=== PATIENT | male | born 1955 | race Caucasian/White ===

== ENCOUNTER 2017-01-11 20:34 | Inpatient (IN) | payer BC ==
[2017-01-11 20:49] LABS: ADD MANUAL DIFF? NO
[2017-01-11 20:59] LABS: BASO # 0.05 K/mm3 (0.0-2.0); BASO % 0.6 % (0.0-3.0); EOS # 0.1 (0.0-0.7); EOS % 1.6 % (1.5-5.0); GRAN # 5.65 (1.4-6.5); GRAN % 66.5 % (50.0-68.0); HEMATOCRIT 46.2 % (42.0-52.0); LYMPH # 1.6 (1.2-3.4); LYMPH % 18.5 % (22.0-35.0); MEAN CORPUSCULAR HEMOGLOBIN 30.5 pg (25.0-35.0); MEAN CORPUSCULAR HGB CONC 35.1 g/dl (31.0-37.0); MEAN PLATELET VOLUME 9.7 fl (7.0-11.0); MONO # 1.1 (0.1-0.6); MONO % 12.8 % (1.0-6.0); PLATELET COUNT 264 10^3/uL (120.0-450.0); RED CELL DISTRIBUTION WIDTH 12.5 % (11.5-14.5); WHITE BLOOD COUNT 8.5 10^3/ul (4.5-11.0)
[2017-01-11 21:07] LABS: ALKALINE PHOSPHATASE 65 U/L (38-133); ALT/SGPT 31 U/L (7-56); AST/SGOT 45 U/L (15-59); BILIRUBIN,TOTAL 0.7 mg/dL (0.2-1.3); BLOOD UREA NITROGEN 18 mg/dL (7-21); CALCIUM 9.4 mg/dL (8.4-10.5); CARBON DIOXIDE 26 mmol/L (21-33); CHLORIDE 99 mmol/L (98-107); CHOLESTEROL 121 mg/dL (130-200); GFR AFRICAN-AMERICAN > 60; GLUCOSE,RANDOM 210 mg/dL (70-110); INR 0.96 (0.93-1.08); POTASSIUM 3.5 mmol/L (3.6-5.0); SODIUM 137 mmol/L (132-148); TOTAL PROTEIN 8.3 g/dL (5.8-8.3)
[2017-01-11] MEDS ORDERED: Potassium Chloride 20 mEq 100 ML IVPB ONE (21:17)
[2017-01-11 21:25] LABS: TROPONIN I < 0.01 ng/mL
--- NOTE | 2017-01-11 21:36 | ED PDOC ---
Arrival/HPI - General Chief Complaint: Weakness/Neurological Deficit Time Seen by Provider: 01/11/17 20:35 Historian: Family, EMS - History of Present Illness Narrative History of Present Illness (Text): 01/11/17 20:35 Benson Dickinson is a 61 year old male who presents to the emergency department for evaluation of sudden onset facial droop, right sided weakness and slurred speech. Patient last seen at baseline at 19:00. Patient was at eating dinner when the symptoms developed. ROS limited due to acuity of patient's condition. Time/Duration: Prior to Arrival Symptom Onset: Sudden Symptom Course: Unchanged Severity Level: Moderate Activities at Onset: Light Context: Other (Restaurant ) Past Medical History - Provider Review Nursing Documentation Reviewed: Yes - Infectious Disease Hx of Infectious Diseases: None - Psychiatric Hx Substance Use: No - Anesthesia Hx Anesthesia: No Family/Social History - Physician Review Nursing Documentation Reviewed: Yes Family/Social History: No Known Family HX Smoking Status: Unknown If Ever Smoked Hx Alcohol Use: No Hx Substance Use: No Allergies/Home Meds Allergies/Adverse Reactions: Allergies aspirin Allergy (Verified 01/11/17 20:39) SHORTNESS OF BREATH crab Allergy (Verified 01/11/17 20:39) SHORTNESS OF BREATH Review of Systems - Review of Systems Systems not reviewed;Unavailable: Acuity of Condition Neurological: Speech Changes (slurred speech ), Facial Droop, Other (Right sided weakness ) Physical Exam Vital Signs Reviewed: Yes Vital Signs Temp Pulse Resp BP Pulse Ox 01/11/17 21:36 110 H 17 138/93 H 98 01/11/17 20:55 98.1 F 61 18 142/75 96 01/11/17 20:41 61 20 119/68 100 Temperature: Afebrile Blood Pressure: Normal Pulse: Regular Respiratory Rate: Normal Appearance: Positive for: Non-Toxic Pain Distress: None Mental Status: Positive for: Alert and Oriented X 3 Finger Stick Blood Glucose: 208 - Systems Exam Head: Present: Atraumatic, Normocephalic Pupils: Present: PERRL Extroacular Muscles: Present: EOMI Conjunctiva: Present: Normal Mouth: Present: Moist Mucous Membranes Neck: Present: Normal Range of Motion Respiratory/Chest: Present: Clear to Auscultation, Good Air Exchange. No: Respiratory Distress, Accessory Muscle Use Cardiovascular: Present: Regular Rate and Rhythm, Normal S1, S2. No: Murmurs Abdomen: Present: Normal Bowel Sounds. No: Tenderness, Distention, Peritoneal Signs Back: Present: Normal Inspection Upper Extremity: Present: Normal Inspection. No: Cyanosis, Edema Lower Extremity: Present: Normal Inspection. No: Edema Neurological: Present: GCS=15, Motor Func Grossly Intact. No: CN II-XII Intact , Speech Normal Skin: Present: Warm, Dry, Normal Color. No: Rashes Psychiatric: Present: Alert Medical Decision Making ED Course and Treatment: 01/11/17 20:35 Impression: A 61 year old male who presents to the emergency department for evaluation of facial droop, right sided weakness and slurred speech. Last seen normal at 19:00 Plan: -- EKG -- CT Head -- Labs -- Chest X-ray -- Reassess and disposition Progress Notes: 01/11/17 20:55 CT Head results reviewed: IMPRESSION: Acute left basal ganglia hemorrhage with no midline shift or basilar herniation. EKG reviewed by me: Sinus tachycardia @ 104 bpm. Left axis deviation. Nonspecific ST abnormality. 01/11/17 21:00 Case discussed with neurosurgery who recommends that neurosurgery intervention is not necessary at this point. Discussed case with observe in icu, dr emerson accepts case request who advices administration of Keppra and Decadon and to place patient on ICU to be evaluated in the am. Discussed with who agrees with the plan to admit patient to ICU and accepts patient under 's service. dr emerson accepts case 01/12/17 00:41 01/14/17 17:15 - Critical Care Critical Care Minutes: 30 minutes (management of acute cerebral bleed) - Lab Interpretations Lab Results: 01/11/17 20:39 01/11/17 20:39 Lab Results 01/11/17 21:08: Blood Type A POSITIVE, Antibody Screen Negative, BBK History Checked No verified bt 01/11/17 20:39: WBC 8.5, RBC 5.31, Hgb 16.2, Hct 46.2, MCV 87.0, MCH 30.5, MCHC 35.1, RDW 12.5, Plt Count 264, MPV 9.7, Gran % 66.5, Lymph % (Auto) 18.5 L, [place] % (Auto) 12.8 H, Eos % (Auto) 1.6, Baso % (Auto) 0.6, Gran # 5.65, Lymph # 1.6, [place] # 1.1 H, Eos # 0.1, Baso # 0.05, PT 10.4, INR 0.96, APTT 28.0, Sodium 137, Potassium 3.5 L, Chloride 99, Carbon Dioxide 26, Anion Gap 16, BUN 18, Creatinine 1.0, Est GFR ( Amer) > 60, Est GFR (Non-Af Amer) > 60, Random Glucose 210 H, Hemoglobin A1c 6.7 H, Calcium 9.4, Total Bilirubin 0.7, AST 45, ALT 31, Alkaline Phosphatase 65, Troponin I < 0.01, Total Protein 8.3, Albumin 4.2, Globulin 4.1, Albumin/Globulin Ratio 1.0 L, Triglycerides 239 H, Cholesterol 121 L, LDL Cholesterol Direct 59, HDL Cholesterol 32 I have reviewed the lab results: Yes - RAD Interpretation Narrative RAD Interpretations (Text): EXAM: CT Head Without Intravenous Contrast FINDINGS: Brain: 3.5 x 2.5 cm left basal ganglia and external capsule hemorrhage, image 39. No midline shift, hydrocephalus, or basilar herniation. Ethmoid mucosal thickening. No calvarial fracture. IMPRESSION: Acute left basal ganglia hemorrhage with no midline shift or basilar herniation. Radiology Orders: 01/11/17 20:40 HEAD W/O (CODE STROKE) [CT] Stat CHEST PORTABLE [RAD] Stat Playground Supervisor: Radiologist - EKG Interpretation Interpreted by ED Physician: Yes Type: 12 lead EKG - Medication Orders Current Medication Orders: Acetaminophen (Tylenol 325 Mg Supp) 325 mg RC Q6H PRN PRN Reason: TEMP>=99.5F Albuterol/Ipratropium (Duoneb 3 Mg/0.5 Mg (3 Ml) Ud) 3 ml IH Q6H [facility] Stop: 01/19/17 05:01 Last Admin: 01/14/17 15:26 Dose: 3 ML Sodium Chloride (Sodium Chloride 0.9%) 1,000 mls @ 60 mls/hr IV .[id number] [facility] Stop: 01/19/17 14:19 Last Admin: 01/14/17 07:47 Dose: Levetiracetam (Keppra 500mg Ivpb) 100 mls @ 200 mls/hr IVPB Q12 [facility] Last Admin: 01/14/17 10:07 Dose: 200 MLS/HR eMAR Start Stop Document 01/14/17 10:07 HD (Rec: 01/14/17 10:07 HD [id number]) Intravenous Solution Start Date 01/14/17 Start Time 10:07 Aztreonam (Azactam 1 Gm) 100 mls @ 100 mls/hr IVPB Q8 [facility] PRN Reason: Protocol Stop: 01/18/17 08:46 Last Admin: 01/14/17 15:30 Dose: 100 MLS/HR eMAR Start Stop Document 01/14/17 15:30 HD (Rec: 01/14/17 15:30 HD [id number]) Intravenous Solution Start Date 01/14/17 Start Time 15:30 Insulin Human Lispro (Humalog Med) 0 units SC Q6H [facility] Last Admin: 01/14/17 14:00 Dose: Not Given Non-Admin Reason: Blood Sugar Parameter Labetalol HCl (Trandate) 10 mg IV Q2H PRN PRN Reason: Systolic Blood Pressure Last Admin: 01/12/17 04:16 Dose: 10 MG MAR Pulse and Blood Pressure Document 01/12/17 04:16 PD (Rec: 01/12/17 04:16 PD [id number]) Pulse Pulse Rate (60-90) 93 Blood Pressure Blood Pressure (100/60-150/90) 168/111 eMAR Start Stop Document 01/12/17 04:16 PD (Rec: 01/12/17 04:16 PD [id number]) Intravenous Solution Start Date 01/12/17 Start Time 04:16 Metoprolol Tartrate (Lopressor) 25 mg PO BID [facility] Last Admin: 01/14/17 10:07 Dose: 25 MG Ondansetron HCl (Zofran Inj) 4 mg IVP Q6H PRN PRN Reason: Nausea/Vomiting Pantoprazole Sodium (Protonix Inj) 40 mg IVP Q12 [facility] Last Admin: 01/14/17 10:07 Dose: 40 MG IVP Administration Document 01/14/17 10:07 HD (Rec: 01/14/17 10:07 HD [id number]) Charges for Administration # of IVP Administrations 1 Discontinued Medications Acetaminophen (Tylenol 650 Mg Supp) 650 mg STAT STA Stop: 01/11/17 22:08 Last Admin: 01/11/17 22:25 Dose: 650 MG Dexamethasone (Decadron Inj) 4 mg IVP STAT STA Stop: 01/11/17 22:08 Last Admin: 01/11/17 22:25 Dose: 4 MG IVP Administration Document 01/11/17 22:25 RD (Rec: 01/11/17 22:25 RD [id number]) Charges for Administration # of IVP Administrations 1 Dexamethasone (Decadron Inj) 4 mg IVP Q6H [facility] Last Admin: 01/13/17 05:23 Dose: 4 MG IVP Administration Document 01/13/17 05:23 PD (Rec: 01/13/17 05:23 PD [id number]) Charges for Administration # of IVP Administrations 1 Potassium Chloride (Potassium Chloride 20 Meq/100 Ml) 100 mls @ 50 mls/hr IVPB ONCE ONE Stop: 01/11/17 23:16 Last Admin: 01/11/17 21:35 Dose: 50 MLS/HR eMAR Start Stop Document 01/11/17 21:35 RD (Rec: 01/11/17 21:35 RD [id number]) Intravenous Solution Start Date 01/11/17 Start Time 21:35 End Date 01/11/17 End time 23:35 Total Infusion Time 120 Levetiracetam (Keppra 500mg Ivpb) 100 mls @ 400 mls/hr IVPB STAT STA Stop: 01/11/17 22:19 Last Admin: 01/11/17 23:00 Dose: 400 MLS/HR eMAR Start Stop Document 01/11/17 23:00 PD (Rec: 01/12/17 01:46 PD [id number]) Intravenous Solution Start Date 01/11/17 Start Time 23:00 Levetiracetam 500 mg/ Sodium (Chloride) 105 mls @ 460 mls/hr IV Q12 [facility] Potassium Chloride (Potassium Chloride 20 Meq/100 Ml) 100 mls @ 50 mls/hr IVPB STAT STA Stop: 01/12/17 00:56 Last Admin: 01/12/17 01:06 Dose: 50 MLS/HR eMAR Start Stop Document 01/12/17 01:06 PD (Rec: 01/12/17 01:07 PD [id number]) Intravenous Solution Start Date 01/12/17 Start Time 23:00 Acetaminophen (Ofirmev) 100 mls @ 400 mls/hr IVPB Q6H PRN PRN Reason: Fever >100.4 F Stop: 01/13/17 23:01 Vancomycin HCl (Vancomycin 1gm) 250 mls @ 167 mls/hr IVPB STAT STA PRN Reason: Protocol Stop: 01/13/17 10:06 Last Admin: 01/13/17 10:42 Dose: 167 MLS/HR eMAR Start Stop Document 01/13/17 10:42 JUR (Rec: 01/13/17 10:43 JUR [id number]) Intravenous Solution Start Date 01/13/17 Start Time 12:12 End Date 01/13/17 End time 13:42 Total Infusion Time 90 Potassium Chloride (Potassium Chloride 20 Meq/100 Ml) 100 mls @ 50 mls/hr IVPB Q2H [facility] Stop: 01/14/17 10:44 Last Admin: 01/14/17 14:00 Dose: 50 MLS/HR eMAR Start Stop Document 01/14/17 14:00 HD (Rec: 01/14/17 14:00 HD [id number]) Intravenous Solution Start Date 01/14/17 Start Time 14:00 Ketorolac Tromethamine (Toradol) 30 mg IVP Q6H PRN PRN Reason: Pain, moderate (4-7) Stop: 01/13/17 22:53 Pantoprazole Sodium (Protonix Inj) 40 mg IVP DAILY [facility] NIHSS Scale ([place]) - How Severe is the Stoke Baseline Level of Consciousness: 0=Alert LOC to Questions: 1=One correct LOC to commands: 2=Neither correct Best Gaze: 0=Normal Visual: 0=No visual loss Facial: 1=Minor asymmetry Motor Arm - Left: 0=No drift Motor Arm - Right: 3=No effort against gravity (falls immediately) Motor Leg - Left: 0=No drift Motor Leg - Right: 3=No effort against gravity (falls immediately) Limb Ataxia: 2=Present both Sensory: 1=Mild to moderate loss Best Language: 2=Severe aphasia Dysarthia: 2=Severe, near unintelligible or worse Extinction & Inattention (Neglect): 1=Partial neglect (mild berny-attention) Score: 18 Risk Level: Mod/Sev Stroke Risk rTPA Inclusion/Exclusion - Refusal of Treatment Patient Refused Treatment: No - Inclusion Criteria for Altepase Patient is 18 years or Older: Yes The Clinical Diagnosis of Ischemic Stroke That is Causing a Potentially Disabling Neurological Deficit: Yes Time of Onset is Well Established to be Less Than 270 Minute Before Treatment Would Begin: Yes Risk/Benefit Discussed With Patient/Family Member Present: Yes - Exclusion Criteria for Altepase Uncontrolled Hypertension at Time of Treatment (Systolic BP above 185 or Diastolic BP above 110 mmHg): No Evidence of an Intracranial Hemorrhage: Yes Evidence of Major Acute Infarct With Signs Greater Than 1/3 MCA Territory: No Suspicion of Subarachnoid Hemorrhage on Pretreatment Evaluation Even if CT Head Negative For Hemorrhage: No - Warning to TPA With Conditions Following Conditions Weighed Against Anticipated Benefit: Yes Condition: Increase Risk of Bleed Due to Comorbid Condition - Scribe Statement The provider has reviewed the documentation as recorded by the Gregory Obrien Provider Attestation: All medical record entries made by the Gregory were at my direction and personally dictated by me. I have reviewed the chart and agree that the record accurately reflects my personal performance of the history, physical exam, medical decision making, and the department course for this patient. I have also personally directed, reviewed, and agree with the discharge instructions and disposition. Disposition/Present on Arrival - Present on Arrival Any Indicators Present on Arrival: No History of DVT/PE: No History of Uncontrolled Diabetes: No Urinary Catheter: No History of Decub. Ulcer: No History Surgical Site Infection Following: None - Disposition Have Diagnosis and Disposition been Completed?: Yes Diagnosis: Cerebral hemorrhage, acute Disposition: HOSPITALIZED Disposition Time: 22:00 Patient Problems: Current Active Problems Problem Status Diagnosed Cerebral hemorrhage, acute Acute Condition: CRITICAL
[2017-01-11] MEDS ORDERED: levETIRAcetam 500mg IVPB 100 ML IVPB STA (22:05)
[2017-01-11] MEDS ORDERED: Dexamethasone 4 mg/1 ml IVP STA (22:07)
--- NOTE | 2017-01-11 22:49 | CP.PCM.CON ---
History of Present Illness - History of Present Illness History of Present Illness: Reason for ICU Consult: Intracerebral hemorrhage HPI: 61 y/o male with a PMHx Htn, DM was brought in by EMS to the ED after experiencing sudden onset slurred speech and right sided facial droop. As per the family at bedside, they were all at a wake for the patient's mother who recently when the sudden onset of these symptoms began and they called emergency medical services. Prior to this, the patient had been complaining of headaches at night time for the past 2-3 days. He also complained of some congestion and difficulty breathing through his nostrils during this time as well. The patient currently denies any complaints of shortness of breath, chest pain or fever, but does report having a diffuse headache all over his head. He has not had any recent travel or sick contacts. The patient was a Code stroke upon arrival and went immediately to CT Scan for his head. Ct Scan revealed an acute left sided basal ganglia hemorrhage without any shift or herniation, so he is obviously not a candidate for tPa. PMHx: Htn DM Allergies: ASA/Crab Fam Hx: multiple family members with DM Soc Hx: Denies tobacco/etoh/illicit drugs; lives at home with his family Meds: Nasonex Simvastatin Lopressor daily Singulair Glucophage Fenofibrate (family does not know the dose of his medications at this time) Review of Systems - Review of Systems Review of Systems: unable to obtain due to patient's inability to express himself Past Patient History - Infectious Disease Hx of Infectious Diseases: None - Past Social History Smoking Status: Never Smoked Alcohol: None Drugs: Denies Home Situation {Lives}: With Family - PSYCHIATRIC Hx Substance Use: No - ANESTHESIA Hx Anesthesia: No Meds Allergies/Adverse Reactions: Allergies Allergy/AdvReac Type Severity Reaction Status Date / Time aspirin Allergy SHORTNESS Verified 01/11/17 20:39 OF BREATH crab Allergy SHORTNESS Verified 01/11/17 20:39 OF BREATH - Medications Medications: Current Medications Potassium Chloride (Potassium Chloride 20 Meq/100 Ml) 100 mls @ 50 mls/hr IVPB ONCE ONE Stop: 01/11/17 23:16 Last Admin: 01/11/17 21:35 Dose: 50 mls/hr Physical Exam - Constitutional Appears: Non-toxic, No Acute Distress, Confused - Head Exam Head Exam: ATRAUMATIC, NORMOCEPHALIC - Eye Exam Eye Exam: EOMI, Normal appearance Pupil Exam: NORMAL ACCOMODATION - ENT Exam ENT Exam: Mucous Membranes Moist - Neck Exam Neck exam: Positive for: Full Rom - Respiratory Exam Respiratory Exam: Clear to Auscultation Bilateral, NORMAL BREATHING PATTERN. absent: Accessory Muscle Use, Rales, Rhonchi, Wheezes - Cardiovascular Exam Cardiovascular Exam: REGULAR RHYTHM, +S1, +S2 - GI/Abdominal Exam GI & Abdominal Exam: Normal Bowel Sounds, Soft. absent: Guarding, Rebound, Tenderness - Rectal Exam Rectal Exam: Deferred - Extremities Exam Extremities exam: Positive for: normal inspection. Negative for: calf tenderness - Neurological Exam Neurological exam: Alert Additional comments: Oriented x 2; displaying signs of expressive aphasia; 0/5 strength in the right upper extremity; 1/5 strength in the right lower extremity; 5/5 strength in bilateral upper and lower extremities. Unable to participate in Finger to nose with his right hand; no issues with the left hand. Right sided facial droop noticed - Psychiatric Exam Psychiatric exam: Agitated, Anxious - Skin Skin Exam: Dry, Intact, Normal Color, Warm Results - Vital Signs Recent Vital Signs: Last Vital Signs Temp 98.1 F 01/11/17 20:55 Pulse 110 H 01/11/17 21:36 Resp 17 01/11/17 21:36 BP 138/93 H 01/11/17 21:36 Pulse Ox 98 01/11/17 21:36 - Labs Result Diagrams: 01/11/17 20:39 01/11/17 20:39 - EKG Data EKG Interpreted by: Myself EKG shows normal: Sinus rhythm Rate: Tachycardia - Imaging and Cardiology CT scan - head Status: Image reviewed by me, Report reviewed by me (acute left sided basal ganglia hemorrhage; without herniation or midline shift) Assessment & Plan - Assessment and Plan (Free Text) Assessment: 61 y/o male with Htn and DM experienced daily headaches at night for the past few days and then today suddenly developed facial droop and decreased responsiveness while at his mother's is found to have an acute intracerbral bleed in the left basal ganglia. I discussed the case with the ED Physician (Dr. Swanson) who spoke to Dr. Santana of Neurosurgery who stated there was no acute intervention to be done at this time. Case was also discussed between the ED and with Neurology (Dr. Miguel Hoffman) who agreed with admitting the patient to the ICU for closer monitoring. He will be admitted to the ICU for further care. Plan: Neuro: patient was loaded with Keppra and given a dose of IV Decadron by the ED prior to my arrival; will maintain his SBP between 110-130 (Patient arrived with a SBP in the 140's and has not spiked higher since). Will give him IV Toradol for pain and attempt to avoid narcotics due to frequent neurochecks in the first 24-48hrs; he is maintaining his airway; will keep him on 2L oxygen via nasal cannula and keep him NPO with an official speech and swallow assessment in the AM. Will start with IV Labetolol prn for blood pressure control and change to a continuous drip if needed. Consults placed with Neurology and Neurosurgery; likely for a repeat head CT tomorrow. Offirmev prn to avoid pyrexia. Pulm: no acute issues; monitor pulse ox on 2L nasal cannula CVS: will aim to keep his SBP less than 140; will consider IVF hydration if his sbp falls into the 90's otherwise he will be kept without IVF Hydration to avoid worsening hypertension; will hold po meds for dyslipidemia GI: NPO; Protonix IV daily Renal: will monitor strict i's and o's along with daily weights Endo: check TSH and A1c in the AM; will hold po glucophage and perform fingerstick Q4H with ISS coverage. ID: does not appear to have any infectious etiology at this time heme: will monitor daily cbc; bleed in the basal ganglia does not appear to have caused any significant shift; coag's WNL so he does not require any further treatment in regards to adjusting blood products psych: no acute issues at this time; appears restless Case discussed with Dr. Swanson at length all labs and images available thus far have been reviewed Total time of care: 35 minutes
[2017-01-11] MEDS ORDERED: Potassium Chloride 20 mEq 100 ML IVPB STA (22:57)
[2017-01-11] MEDS ORDERED: Sodium Chloride 0.9% 1,000 ML IV SCH (23:00)
[2017-01-11] MEDS: Insulin Lispro (humaLOG) MEDIUM Coverage SC SCH (23:00)
[2017-01-11] MEDS ORDERED: Labetalol 5 mg/ml Inj 20ML IV PRN (23:03)
[2017-01-11] MEDS ORDERED: Insulin Reg-MEDIUM-Coverage SC SCH (23:15)
[2017-01-11 23:38] VITALS: BMI 25.8
[2017-01-12] MEDS: Sodium Chloride 0.9% 1,000 ML IV SCH ×2 (01:01→23:15)
[2017-01-12] MEDS: Albuterol-Ipratrop 3 mg / 0.5 (3 ml) UD IH SCH ×3 (01:15→14:26)
[2017-01-12 01:19] LABS: ARTERIAL BLOOD GAS HCO3 25.8 mmol/L (21-28); ARTERIAL BLOOD GAS O2 CAPACITY 21.4 mL/dl (16-24); ARTERIAL BLOOD GAS O2 CONTENT 21.1 ML/dl (15-23); ARTERIAL BLOOD GAS PH 7.33 (7.35-7.45); ARTERIAL BLOOD HGB O2 SAT 96.8 % (95.0-98.0); CARBOXYHEMOGLOBIN 1.3 % (0.5-1.5); HHB 1.5 % (0-5); METHEMOGLOBIN 0.4 % (0.0-3.0)
[2017-01-12] MEDS: Dexamethasone 4 mg/1 ml IVP SCH ×4 (05:01→22:40)
[2017-01-12] MEDS: Insulin Lispro (humaLOG) MEDIUM Coverage SC SCH ×4 (05:30→22:38)
[2017-01-12 06:17] LABS: ADD MANUAL DIFF? NO
[2017-01-12 06:27] LABS: BASO # 0.02 K/mm3 (0.0-2.0); BASO % 0.2 % (0.0-3.0); GRAN # 7.84 (1.4-6.5); GRAN % 88.9 % (50.0-68.0); HEMATOCRIT 46.8 % (42.0-52.0); LYMPH # 0.9 (1.2-3.4); LYMPH % 9.7 % (22.0-35.0); MEAN CELL VOLUME 87.5 fL (80.0-105.0); MEAN CORPUSCULAR HEMOGLOBIN 30.5 pg (25.0-35.0); MEAN CORPUSCULAR HGB CONC 34.8 g/dl (31.0-37.0); MEAN PLATELET VOLUME 9.6 fl (7.0-11.0); MONO # 0.1 (0.1-0.6); MONO % 1.2 % (1.0-6.0); PLATELET COUNT 263 10^3/uL (120.0-450.0); RED CELL DISTRIBUTION WIDTH 12.5 % (11.5-14.5); WHITE BLOOD COUNT 8.8 10^3/ul (4.5-11.0)
[2017-01-12 06:56] LABS: ALKALINE PHOSPHATASE 69 U/L (38-133); ALT/SGPT 31 U/L (7-56); AST/SGOT 42 U/L (15-59); BILIRUBIN,DIRECT 0.5 mg/dL (0.0-0.4); BILIRUBIN,TOTAL 0.7 mg/dL (0.2-1.3); BLOOD UREA NITROGEN 15 mg/dL (7-21); CALCIUM 9.4 mg/dL (8.4-10.5); CARBON DIOXIDE 24 mmol/L (21-33); CHLORIDE 102 mmol/L (98-107); GFR AFRICAN-AMERICAN > 60; GLUCOSE,RANDOM 173 mg/dL (70-110); MAGNESIUM 1.9 mg/dL (1.7-2.2); POTASSIUM 4.3 mmol/L (3.6-5.0); SODIUM 140 mmol/L (132-148); TOTAL PROTEIN 8.6 g/dL (5.8-8.3)
[2017-01-12 06:59] LABS: FREE T4 1.58 ng/dL (0.78-2.19); T4 10.6 ug/dL (5.5-11.0)
[2017-01-12 07:12] LABS: THYROID STIMULATING HORMONE 0.4 mIU/mL (0.46-4.68)
[2017-01-12 07:23] LABS: TROPONIN I < 0.01 ng/mL
--- NOTE | 2017-01-12 07:57 | CT ---
PROCEDURE: CT HEAD WITHOUT CONTRAST. HISTORY: Code Stroke COMPARISON: None available. TECHNIQUE: Axial computed tomography images were obtained through the head/brain without intravenous contrast. Radiation dose: Total exam DLP = 896.24 mGy-cm. This CT exam was performed using one or more of the following dose reduction techniques: Automated exposure control, adjustment of the mA and/or kV according to patient size, and/or use of iterative reconstruction technique. FINDINGS: HEMORRHAGE: Acute left basal ganglia hemorrhage. This measures roughly 3.2 x 2.2 cm. This involves basal ganglia and left external capsule. No other acute intracranial hemorrhage is identified. There is no significant mass effect upon the left lateral ventricle and no resulting midline shift. There is no extra-axial hemorrhage. BRAIN: No mass effect or edema. No atrophy or chronic microvascular ischemic changes. VENTRICLES: Unremarkable. No hydrocephalus. CALVARIUM: Unremarkable. PARANASAL SINUSES: Chronic ethmoid and left maxillary sinusitis. MASTOID AIR CELLS: Unremarkable as visualized. No inflammatory changes. OTHER FINDINGS: None. IMPRESSION: Acute left basal ganglia hemorrhage. Chronic paranasal sinusitis. Preliminary interpretation of this examination was reported by [facility] at 8:51 p.m. on 01/11/2017. There is concurrence of this report with the preliminary interpretation.
--- NOTE | 2017-01-12 08:47 | RAD ---
HISTORY: cva COMPARISON: No prior. FINDINGS: LUNGS: No active pulmonary disease. PLEURA: No significant pleural effusion identified, no pneumothorax apparent. CARDIOVASCULAR: Normal. OSSEOUS STRUCTURES: No significant abnormalities. VISUALIZED UPPER ABDOMEN: Normal. OTHER FINDINGS: None. IMPRESSION: No active disease.
[2017-01-12] MEDS ORDERED: levETIRAcetam 500 MG in Sodium Chloride 0.9% 100 ML IV SCH (10:00)
--- NOTE | 2017-01-12 10:22 | HP ---
The patient is seen in bed 6 in the Emergency Room. The patient is a 61-year-old male. According to the patient's , who was present at the bedside, the patient was in his usual state of health while the patient was attending his mother's , and the patient was suddenly noted to have developing unsteady gait, right-sided weakness, slurred speech, and the patient started drifting to the right side while the patient was attending her mother's . The patient came to the Emergency Room by the [facility] ambulance accompanied by the patient's . According to the patient's , above symptoms started around 8:00 p.m. or slightly before that. The patient was then seen in the Emergency Room by Dr. Swanson for sudden onset of facial droop, right-sided weakness, slurred speech. The patient was found to be aphasic in the Emergency Room. REVIEW OF SYSTEMS: A 13-system review was done. Pertinent positives and negatives dictated above. CODE STATUS: Full code. LIVING WILL AND ADVANCED DIRECTIVE: None. Height is 5 feet 8 inches. Weight is 170. BMI is 26. ALLERGIES: ASPIRIN AND CRAB. PAST MEDICAL AND SURGICAL HISTORY: According to the patient's is positive for diabetes, positive for hypertension, positive for dyslipidemia. The patient 's denies any history of cerebral infarct, denies any history of myocardial infarction, denies any history of coronary artery disease.HISTORY OF SLEEP APNEA ON CPAP at home. SOCIAL HISTORY: Negative for alcohol, negative for drug use, negative for communicable transmissible disease. The patient's past medical history is also significant for dyslipidemia. The patient was seen in stretcher #6. PHYSICAL EXAMINATION: GENERAL: The patient is lying in the bed with right-sided weakness. The patient is aphasic, but the patient follows simple commands. VITAL SIGNS: T-max 98.4, heart rate 61-110-92, respirations 14-18. Blood pressure 119/68, 142/75, 138/93, 146/88, respirations 17-18, O2 sat 98-100%. HEAD: Normocephalic, atraumatic. HEENT: Shows pink conjunctivae, dry oral mucosa. Positive flattening of the nasolabial fold. NECK: Questionable soft carotid bruit. CHEST: Kyphosis. LUNGS: Show occasional rhonchi, upper lung stewart anteriorly. CARDIOVASCULAR: S1, S2, regular rhythm. ABDOMEN: Soft, protuberant, positive bowel sounds. GENITALIA: Male. RECTAL: Deferred. EXTREMITIES: At present shows no pitting edema, no calf tenderness, no Homans' signs. NEUROLOGIC: The patient is awake, responsive, follows simple commands, moves left side of the body. The patient at present appears to have a right-sided hemiplegia of the upper and lower extremity. The patient is unable to move right upper and lower extremity. The patient is aphasic. MUSCULOSKELETAL: Shows a body mass index of 26. VASCULAR: Palpable pulses. Cranial nerves II-XII are limited. GAIT: Gait examination could not be tested. VASCULAR: Palpable pulses. PSYCHIATRIC: Not applicable. DIAGNOSTICS: CBC is within normal limits. PT/PTT is normal. Potassium 3.5, glucose 210, cholesterol 121. Triglycerides 239. Blood type was A-positive. The patient's CT of the head was done, which shows acute left basal ganglia bleed. Chest x-ray was done in the Emergency Room, which shows questionable cardiomegaly. The patient was seen in the Emergency Room by Dr. Swanson. The patient's EKG shows sinus tachycardia 104 beats per minute, left axis deviation. The patient's case was discussed by the attending with neurosurgery, Dr. Santana , who recommends no neurosurgical recommendation at this time. The patient's case was discussed by the Emergency Room physician with Dr. Hoffman, neurologist on-call who recommends administration of Keppra and Decadron, and admit the patient to ICU. The patient was evaluated by the tipple tender. The patient was given IV Decadron, IV Keppra. The patient was stabilized in the Emergency Room. The patient was evaluated. IMPRESSION AND PLAN: A 61-year-old male with sudden onset of aphasia, right- sided weakness, and facial droop. Questionable headache. 1. Acute left basal ganglia bleed and hemorrhage without any midline shift or basilar herniation. 2. History of hypertension, diabetes mellitus, dyslipidemia. 3. Tachycardia. 4. Hypertension. 5. Hypokalemia. 6. Hyperglycemia. 7. Hypertriglyceridemia. 8. A-positive blood type. 9. Questionable cardiomegaly. 10. Sudden onset of slurred speech and right-sided facial droop and right- sided weakness, and history of headache for the last few days. 11. Hypokalemia. 12. Sinus tachycardia. 13. Left axis deviation. PLAN: At this time, the patient is be admitted to intensive care unit. The patient's condition - overall guarded. Condition: Critical condition. Discussed and explained to the patient's who was present at the bedside. The patient has been ordered hemoglobin A1c, serial cardiac enzymes, repeat CMP , thyroid panel, LFT, magnesium, troponin, vitamin D hydroxy, repeat CBC. ABG has been ordered. The patient was consulted cardiology, neurology, and neurosurgery. The patient has been started on IV acetaminophen q. 6 hours, Decadron 4 mg IV q. 6, DuoNeb nebulizer every 6 hours, Humalog medium-dose sliding scale coverage q. 6 hours. The patient was given Keppra 500 IV in the Emergency Room. The patient is started on Keppra 500 q. 12. The patient has been given potassium riders, Protonix 40 IV q. 12 for GI prophylaxis. IV fluids 0.9 normal saline at 80 mL an hour, which will be decreased to 60 mL an hour. The patient is started on Toradol 30 IV q. 6 hours p.r.n. The patient is started on labetalol 10 mg IV q. 2 p.r.n., Tylenol suppository q. 6 p.r.n., Zofran 4 mg IV q. 6 p.r.n. The patient has been ordered MRI of the brain without gadolinium as THE PATIENT IS ALLERGIC TO SHELLFISH. The patient will be ordered EEG. The patient has been ordered an MRI of the brain without gadolinium. EEG has been ordered. The patient is admitted to intensive care unit. ABG results are pending. The patient has been ordered repeat EKG in the morning. Echo with Doppler. EEG has been ordered. The patient is on n.p.o., bed rest. Fingerstick blood sugar q. 6 hours has been ordered. The patient has been ordered fingerstick blood sugar q. 6 hours. The patient has been ordered head of the bed at 30 degrees continuous, neuro checks, seizure precautions, suctioning airway, MARQUES stockings , SCDs, vital signs every 15 minutes, occupational therapy, physical therapy, speech therapy, swallowing evaluation has been ordered. The patient's airway will be suctioned. The patient has been started on oxygen via facemask of 2 liters. At present, the patient's overall prognosis is guarded. Condition critical. and the family member aware of the above. Time spent in the entire management, reviewing date, diagnostic data, and therapeutic intervention, and time spent in the entire management of the patient : 1 hour 55 minutes. Critical care time spent is more than 1 hour 55 minutes. Dictated and electronically signed, not read. Milton Rodas MD cc: [id number] TT: 01/11/2017 23:58:47 jn 01/12/2017 09:21:30 NIKKI
--- NOTE | 2017-01-12 10:57 | CP.CCUPN ---
<Vannessa Gill - Last Filed: 01/12/17 10:53> CCU Subjective - Physician Review Events Since Last Encounter (Free Text): 01/12/17 10:53 Patient seen and examined bedside. No acute events overnight. Still with right- sided hemiplegia, largely aphasic. Denies CP, SOB abd pain, vision changes, worsened headache. Admits to persistent holocephalic headache, stable in quality and severity since admission. Critical Care Time Spent (in minutes): 40 CCU Objective - Vital Signs / Intake & Output Intake and Output (Last 8hrs): Intake & Output 01/11/17 01/12/17 01/12/17 22:59 06:59 14:59 Weight 170 lb - Physical Exam Head: Positive for: Atraumatic, Normocephalic Pupils: Positive for: PERRL Extroacular Muscles: Positive for: EOMI Conjunctiva: Positive for: Normal Mouth: Positive for: Moist Mucous Membranes Neck: Positive for: Normal Range of Motion Respiratory/Chest: Positive for: Clear to Auscultation, Good Air Exchange. Negative for: Respiratory Distress, Accessory Muscle Use Cardiovascular: Positive for: Regular Rate and Rhythm, Normal S1, S2. Negative for: Murmurs Abdomen: Positive for: Normal Bowel Sounds. Negative for: Tenderness, Distention, Peritoneal Signs Back: Positive for: Normal Inspection Upper Extremity: Positive for: Normal Inspection. Negative for: Cyanosis, Edema Lower Extremity: Positive for: Normal Inspection. Negative for: Edema Neurological: Positive for: GCS=15, Motor Func Grossly Intact. Negative for: CN II-XII Intact, Speech Normal Skin: Positive for: Warm, Dry, Normal Color. Negative for: Rashes Psychiatric: Positive for: Alert - Medications Active Medications: Active Medications Generic Name Dose Route Start Last Admin Trade Name Freq PRN Reason Stop Dose Admin Acetaminophen 325 mg 01/11/17 22:52 Tylenol 325 Mg Supp RC Q6H PRN TEMP>=99.5F Albuterol/Ipratropium 3 ml 01/11/17 23:00 01/12/17 07:26 Duoneb 3 Mg/0.5 Mg (3 Ml) Ud IH 01/19/17 05:01 3 ml Q6H BEVERLY Administration Dexamethasone 4 mg 01/11/17 23:00 01/12/17 05:01 Decadron Inj IVP 4 mg Q6H BEVERLY Administration Acetaminophen 100 mls @ 400 mls/hr 01/11/17 23:00 Ofirmev IVPB 01/13/17 23:01 Q6H PRN Fever >100.4 F Sodium Chloride 1,000 mls @ 60 mls/hr 01/12/17 00:52 01/12/17 01:01 Sodium Chloride 0.9% IV 01/19/17 14:19 60 mls/hr .[id number] BEVERLY Administration Levetiracetam 100 mls @ 200 mls/hr 01/12/17 10:00 Keppra 500mg Ivpb IVPB Q12 BEVERLY Insulin Human Lispro 0 units 01/11/17 23:00 01/12/17 05:30 Humalog Med SC 1 units Q6H BEVERLY Administration Ketorolac Tromethamine 30 mg 01/11/17 22:52 Toradol IVP 01/13/17 22:53 Q6H PRN Pain, moderate (4-7) Labetalol HCl 10 mg 01/11/17 23:03 01/12/17 04:16 Trandate IV 10 mg Q2H PRN Administration Systolic Blood Pressure Ondansetron HCl 4 mg 01/11/17 22:55 Zofran Inj IVP Q6H PRN Nausea/Vomiting Pantoprazole Sodium 40 mg 01/11/17 23:00 01/12/17 00:27 Protonix Inj IVP 40 mg Q12 BEVERLY Administration - Patient Studies Lab Studies: Lab Studies 01/12/17 01/12/17 01/11/17 Range/Units 06:00 01:10 21:30 WBC 8.8 (4.5-11.0) 10^3/ul RBC 5.35 (3.5-6.1) 10^6/uL Hgb 16.3 (14.0-18.0) gm/dL Hct 46.8 (42.0-52.0) % MCV 87.5 (80.0-105.0) fL MCH 30.5 (25.0-35.0) pg MCHC 34.8 (31.0-37.0) g/dl RDW 12.5 (11.5-14.5) % Plt Count 263 (120.0-450.0) 10^3/uL MPV 9.6 (7.0-11.0) fl Gran % 88.9 H (50.0-68.0) % Lymph % (Auto) 9.7 L (22.0-35.0) % [place] % (Auto) 1.2 (1.0-6.0) % Eos % (Auto) 0.0 L (1.5-5.0) % Baso % (Auto) 0.2 (0.0-3.0) % Gran # 7.84 H (1.4-6.5) Lymph # 0.9 L (1.2-3.4) [place] # 0.1 (0.1-0.6) Eos # 0.0 (0.0-0.7) Baso # 0.02 (0.0-2.0) K/mm3 pCO2 49 H (35-45) mm/Hg pO2 110.0 H (80-100) mm/Hg HCO3 25.8 (21-28) mmol/L ABG pH 7.33 L (7.35-7.45) ABG Total CO2 27.3 (22-28) mmol.L ABG O2 Saturation 98.5 H (95-98) % ABG O2 Content 21.1 (15-23) ML/dl ABG Base Excess -0.8 (-2.0-3.0) mmol/L ABG Hemoglobin 15.4 (11.7-17.4) g/dL ABG Carboxyhemoglobin 1.3 (0.5-1.5) % POC ABG HHb (Measured) 1.5 (0-5) % ABG Methemoglobin 0.4 (0.0-3.0) % ABG O2 Capacity 21.4 (16-24) mL/dl Hgb O2 Saturation 96.8 (95.0-98.0) % FiO2 28.0 % Sodium 140 (132-148) mmol/L Potassium 4.3 (3.6-5.0) mmol/L Chloride 102 (98-107) mmol/L Carbon Dioxide 24 (21-33) mmol/L Anion Gap 18 (10-20) BUN 15 (7-21) mg/dL Creatinine 0.9 (0.5-1.4) mg/dL Est GFR ( Amer) > 60 Est GFR (Non-Af Amer) > 60 Random Glucose 173 H (70-110) mg/dL Calcium 9.4 (8.4-10.5) mg/dL Magnesium 1.9 (1.7-2.2) mg/dL Total Bilirubin 0.7 (0.2-1.3) mg/dL Direct Bilirubin 0.5 H (0.0-0.4) mg/dL AST 42 (15-59) U/L ALT 31 (7-56) U/L Alkaline Phosphatase 69 (38-133) U/L Lactate Dehydrogenase 504 (333-699) U/L Total Creatine Kinase 150 (35-230) U/L Troponin I < 0.01 ng/mL Total Protein 8.6 H (5.8-8.3) g/dL Albumin 4.3 (3.0-4.8) g/dL Globulin 4.3 gm/dL Albumin/Globulin Ratio 1.0 L (1.1-1.8) Free T4 1.58 (0.78-2.19) ng/dL Thyroxine (T4) 10.6 (5.5-11.0) ug/dL TSH 3rd Generation 0.40 L (0.46-4.68) mIU/mL Blood Type Confirm A POSITIVE Laboratory Results - last 24 hr 01/11/17 01/12/17 01/12/17 21:30 01:10 06:00 WBC 8.8 RBC 5.35 Hgb 16.3 Hct 46.8 MCV 87.5 MCH 30.5 MCHC 34.8 RDW 12.5 Plt Count 263 MPV 9.6 Gran % 88.9 H Lymph % (Auto) 9.7 L [place] % (Auto) 1.2 Eos % (Auto) 0.0 L Baso % (Auto) 0.2 Gran # 7.84 H Lymph # 0.9 L [place] # 0.1 Eos # 0.0 Baso # 0.02 pCO2 49 H pO2 110.0 H HCO3 25.8 ABG pH 7.33 L ABG Total CO2 27.3 ABG O2 Saturation 98.5 H ABG O2 Content 21.1 ABG Base Excess -0.8 ABG Hemoglobin 15.4 ABG Carboxyhemoglobin 1.3 POC ABG HHb (Measured) 1.5 ABG Methemoglobin 0.4 ABG O2 Capacity 21.4 Hgb O2 Saturation 96.8 FiO2 28.0 Sodium 140 Potassium 4.3 Chloride 102 Carbon Dioxide 24 Anion Gap 18 BUN 15 Creatinine 0.9 Est GFR ( Amer) > 60 Est GFR (Non-Af Amer) > 60 Random Glucose 173 H Calcium 9.4 Magnesium 1.9 Total Bilirubin 0.7 Direct Bilirubin 0.5 H AST 42 ALT 31 Alkaline Phosphatase 69 Lactate Dehydrogenase 504 Total Creatine Kinase 150 Troponin I < 0.01 Total Protein 8.6 H Albumin 4.3 Globulin 4.3 Albumin/Globulin Ratio 1.0 L Free T4 1.58 Thyroxine (T4) 10.6 TSH 3rd Generation 0.40 L Blood Type Confirm A POSITIVE EKG/Cardiology Studies: Cardiology / EKG Studies 01/12/17 07:00 ELECTROCARDIOGRAM DAILY Comment: Reason For Exam: ICB 01/13/17 07:00 ELECTROCARDIOGRAM DAILY Comment: Reason For Exam: ICB Fingerstick Blood Sugar Results: 160 Assessment/Plan - Assessment and Plan (Free Text) Assessment: 61 yo M with acute left basal ganglia hemorrhage Plan: Neuro: AAOx2, expressive aphasia, Right sided facial droop, 0/5 RUE & 1/[address] head without contrast shows acute 3.2 x 2.2 cm left basal ganglia and left external capsule hemorrhage without significant mass effect and no resulting midline shift MRI this AM pending EEG done pending read Continue Margarito Fritz as per neurology Maintain normothermia Management as per neurology and neurosurgery. 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 Maintain spo2>90, pao2>60 CV: 2D ECHO pending Cardio following Continue Labetalol PRN HTN. Cardio recs appreciated Renal: No acute issues. Continue to monitor GI: GI ppx Endo: Medium lispro SSI. Maintain euglycemia 140-180 A1C pending ID: No leukocytosis, afebrile, no signs of infection at this time Heme: Hb stable. Continue to monitor DVT/GI ppx: SCDs, protonix, NPO - Date & Time Date: 01/12/17 Time: 11:02 <Janene FIELDS,Thomas H - Last Filed: 01/12/17 17:35> CCU Objective - Vital Signs / Intake & Output Vital Signs (Last 4 hours): Vital Signs Temp Pulse Resp BP Pulse Ox 01/12/17 16:00 97.2 F L 104 H 15 111/80 97 01/12/17 15:00 113 H 22 96/66 L 95 01/12/17 14:00 94 H 19 131/61 96 Intake and Output (Last 8hrs): Intake & Output 01/12/17 01/12/17 01/12/17 06:59 14:59 22:59 Weight 170 lb - Medications Active Medications: Active Medications Generic Name Dose Route Start Last Admin Trade Name Freq PRN Reason Stop Dose Admin Acetaminophen 325 mg 01/11/17 22:52 Tylenol 325 Mg Supp RC Q6H PRN TEMP>=99.5F Albuterol/Ipratropium 3 ml 01/11/17 23:00 01/12/17 14:26 Duoneb 3 Mg/0.5 Mg (3 Ml) Ud IH 01/19/17 05:01 3 ml Q6H BEVERLY Administration Dexamethasone 4 mg 01/11/17 23:00 01/12/17 11:10 Decadron Inj IVP 4 mg Q6H BEVERLY Administration Acetaminophen 100 mls @ 400 mls/hr 01/11/17 23:00 Ofirmev IVPB 01/13/17 23:01 Q6H PRN Fever >100.4 F Sodium Chloride 1,000 mls @ 60 mls/hr 01/12/17 00:52 01/12/17 01:01 Sodium Chloride 0.9% IV 01/19/17 14:19 60 mls/hr .[id number] BEVERLY Administration Levetiracetam 100 mls @ 200 mls/hr 01/12/17 10:00 01/12/17 11:12 Keppra 500mg Ivpb IVPB 200 mls/hr Q12 BEVERLY Administration Insulin Human Lispro 0 units 01/11/17 23:00 01/12/17 17:21 Humalog Med SC Not Given Q6H BEVERLY Ketorolac Tromethamine 30 mg 01/11/17 22:52 Toradol IVP 01/13/17 22:53 Q6H PRN Pain, moderate (4-7) Labetalol HCl 10 mg 01/11/17 23:03 01/12/17 04:16 Trandate IV 10 mg Q2H PRN Administration Systolic Blood Pressure Ondansetron HCl 4 mg 01/11/17 22:55 Zofran Inj IVP Q6H PRN Nausea/Vomiting Pantoprazole Sodium 40 mg 01/11/17 23:00 01/12/17 11:11 Protonix Inj IVP 40 mg Q12 BEVERLY Administration - Patient Studies Lab Studies: Lab Studies 01/12/17 01/12/17 01/12/17 Range/Units 12:30 06:00 01:10 WBC 8.8 (4.5-11.0) 10^3/ul RBC 5.35 (3.5-6.1) 10^6/uL Hgb 16.3 (14.0-18.0) gm/dL Hct 46.8 (42.0-52.0) % MCV 87.5 (80.0-105.0) fL MCH 30.5 (25.0-35.0) pg MCHC 34.8 (31.0-37.0) g/dl RDW 12.5 (11.5-14.5) % Plt Count 263 (120.0-450.0) 10^3/uL MPV 9.6 (7.0-11.0) fl Gran % 88.9 H (50.0-68.0) % Lymph % (Auto) 9.7 L (22.0-35.0) % [place] % (Auto) 1.2 (1.0-6.0) % Eos % (Auto) 0.0 L (1.5-5.0) % Baso % (Auto) 0.2 (0.0-3.0) % Gran # 7.84 H (1.4-6.5) Lymph # 0.9 L (1.2-3.4) [place] # 0.1 (0.1-0.6) Eos # 0.0 (0.0-0.7) Baso # 0.02 (0.0-2.0) K/mm3 pCO2 44 49 H (35-45) mm/Hg pO2 128.0 H 110.0 H (80-100) mm/Hg HCO3 23.7 25.8 (21-28) mmol/L ABG pH 7.34 L 7.33 L (7.35-7.45) ABG Total CO2 25.1 27.3 (22-28) mmol.L ABG O2 Saturation 98.6 H 98.5 H (95-98) % ABG O2 Content 21.1 (15-23) ML/dl ABG Base Excess -2.2 L -0.8 (-2.0-3.0) mmol/L ABG Hemoglobin 15.4 (11.7-17.4) g/dL ABG Carboxyhemoglobin 1.3 (0.5-1.5) % POC ABG HHb (Measured) 1.5 (0-5) % ABG Methemoglobin 0.4 (0.0-3.0) % ABG O2 Capacity 21.4 (16-24) mL/dl ABG Potassium 3.2 L (3.6-5.2) mmol/L Hgb O2 Saturation 96.8 (95.0-98.0) % Sodium 140.0 140 (132-148) mmol/L Chloride 108.0 H 102 (98-107) mmol/L Glucose 143 H (75-110) mg/dl Lactate 1.7 (0.7-2.1) mmol/L FiO2 28.0 28.0 % Potassium 4.3 (3.6-5.0) mmol/L Carbon Dioxide 24 (21-33) mmol/L Anion Gap 18 (10-20) BUN 15 (7-21) mg/dL Creatinine 0.9 (0.5-1.4) mg/dL Est GFR ( Amer) > 60 Est GFR (Non-Af Amer) > 60 Random Glucose 173 H (70-110) mg/dL Calcium 9.4 (8.4-10.5) mg/dL Magnesium 1.9 (1.7-2.2) mg/dL Total Bilirubin 0.7 (0.2-1.3) mg/dL Direct Bilirubin 0.5 H (0.0-0.4) mg/dL AST 42 (15-59) U/L ALT 31 (7-56) U/L Alkaline Phosphatase 69 (38-133) U/L Lactate Dehydrogenase 504 (333-699) U/L Total Creatine Kinase 150 (35-230) U/L Troponin I < 0.01 ng/mL Total Protein 8.6 H (5.8-8.3) g/dL Albumin 4.3 (3.0-4.8) g/dL Globulin 4.3 gm/dL Albumin/Globulin Ratio 1.0 L (1.1-1.8) 25-OH Vitamin D Total 18.7 L (30.0-100.0) NG/ML Free T4 1.58 (0.78-2.19) ng/dL Thyroxine (T4) 10.6 (5.5-11.0) ug/dL TSH 3rd Generation 0.40 L (0.46-4.68) mIU/mL Arterial Blood Potassium 3.2 L (3.6-5.2) mmol/L Blood Type Confirm 01/11/17 Range/Units 21:30 WBC (4.5-11.0) 10^3/ul RBC (3.5-6.1) 10^6/uL Hgb (14.0-18.0) gm/dL Hct (42.0-52.0) % MCV (80.0-105.0) fL MCH (25.0-35.0) pg MCHC (31.0-37.0) g/dl RDW (11.5-14.5) % Plt Count (120.0-450.0) 10^3/uL MPV (7.0-11.0) fl Gran % (50.0-68.0) % Lymph % (Auto) (22.0-35.0) % [place] % (Auto) (1.0-6.0) % Eos % (Auto) (1.5-5.0) % Baso % (Auto) (0.0-3.0) % Gran # (1.4-6.5) Lymph # (1.2-3.4) [place] # (0.1-0.6) Eos # (0.0-0.7) Baso # (0.0-2.0) K/mm3 pCO2 (35-45) mm/Hg pO2 (80-100) mm/Hg HCO3 (21-28) mmol/L ABG pH (7.35-7.45) ABG Total CO2 (22-28) mmol.L ABG O2 Saturation (95-98) % ABG O2 Content (15-23) ML/dl ABG Base Excess (-2.0-3.0) mmol/L ABG Hemoglobin (11.7-17.4) g/dL ABG Carboxyhemoglobin (0.5-1.5) % POC ABG HHb (Measured) (0-5) % ABG Methemoglobin (0.0-3.0) % ABG O2 Capacity (16-24) mL/dl ABG Potassium (3.6-5.2) mmol/L Hgb O2 Saturation (95.0-98.0) % Sodium (132-148) mmol/L Chloride (98-107) mmol/L Glucose (75-110) mg/dl Lactate (0.7-2.1) mmol/L FiO2 % Potassium (3.6-5.0) mmol/L Carbon Dioxide (21-33) mmol/L Anion Gap (10-20) BUN (7-21) mg/dL Creatinine (0.5-1.4) mg/dL Est GFR ( Amer) Est GFR (Non-Af Amer) Random Glucose (70-110) mg/dL Calcium (8.4-10.5) mg/dL Magnesium (1.7-2.2) mg/dL Total Bilirubin (0.2-1.3) mg/dL Direct Bilirubin (0.0-0.4) mg/dL AST (15-59) U/L ALT (7-56) U/L Alkaline Phosphatase (38-133) U/L Lactate Dehydrogenase (333-699) U/L Total Creatine Kinase (35-230) U/L Troponin I ng/mL Total Protein (5.8-8.3) g/dL Albumin (3.0-4.8) g/dL Globulin gm/dL Albumin/Globulin Ratio (1.1-1.8) 25-OH Vitamin D Total (30.0-100.0) NG/ML Free T4 (0.78-2.19) ng/dL Thyroxine (T4) (5.5-11.0) ug/dL TSH 3rd Generation (0.46-4.68) mIU/mL Arterial Blood Potassium (3.6-5.2) mmol/L Blood Type Confirm A POSITIVE Laboratory Results - last 24 hr 01/11/17 01/12/17 01/12/17 21:30 01:10 06:00 WBC 8.8 RBC 5.35 Hgb 16.3 Hct 46.8 MCV 87.5 MCH 30.5 MCHC 34.8 RDW 12.5 Plt Count 263 MPV 9.6 Gran % 88.9 H Lymph % (Auto) 9.7 L [place] % (Auto) 1.2 Eos % (Auto) 0.0 L Baso % (Auto) 0.2 Gran # 7.84 H Lymph # 0.9 L [place] # 0.1 Eos # 0.0 Baso # 0.02 pCO2 49 H pO2 110.0 H HCO3 25.8 ABG pH 7.33 L ABG Total CO2 27.3 ABG O2 Saturation 98.5 H ABG O2 Content 21.1 ABG Base Excess -0.8 ABG Hemoglobin 15.4 ABG Carboxyhemoglobin 1.3 POC ABG HHb (Measured) 1.5 ABG Methemoglobin 0.4 ABG O2 Capacity 21.4 ABG Potassium Hgb O2 Saturation 96.8 Glucose Lactate FiO2 28.0 Sodium 140 Potassium 4.3 Chloride 102 Carbon Dioxide 24 Anion Gap 18 BUN 15 Creatinine 0.9 Est GFR ( Amer) > 60 Est GFR (Non-Af Amer) > 60 Random Glucose 173 H Calcium 9.4 Magnesium 1.9 Total Bilirubin 0.7 Direct Bilirubin 0.5 H AST 42 ALT 31 Alkaline Phosphatase 69 Lactate Dehydrogenase 504 Total Creatine Kinase 150 Troponin I < 0.01 Total Protein 8.6 H Albumin 4.3 Globulin 4.3 Albumin/Globulin Ratio 1.0 L 25-OH Vitamin D Total 18.7 L Free T4 1.58 Thyroxine (T4) 10.6 TSH 3rd Generation 0.40 L Arterial Blood Potassium Blood Type Confirm A POSITIVE 01/12/17 12:30 WBC RBC Hgb Hct MCV MCH MCHC RDW Plt Count MPV Gran % Lymph % (Auto) [place] % (Auto) Eos % (Auto) Baso % (Auto) Gran # Lymph # [place] # Eos # Baso # pCO2 44 pO2 128.0 H HCO3 23.7 ABG pH 7.34 L ABG Total CO2 25.1 ABG O2 Saturation 98.6 H ABG O2 Content ABG Base Excess -2.2 L ABG Hemoglobin ABG Carboxyhemoglobin POC ABG HHb (Measured) ABG Methemoglobin ABG O2 Capacity ABG Potassium 3.2 L Hgb O2 Saturation Glucose 143 H Lactate 1.7 FiO2 28.0 Sodium 140.0 Potassium Chloride 108.0 H Carbon Dioxide Anion Gap BUN Creatinine Est GFR ( Amer) Est GFR (Non-Af Amer) Random Glucose Calcium Magnesium Total Bilirubin Direct Bilirubin AST ALT Alkaline Phosphatase Lactate Dehydrogenase Total Creatine Kinase Troponin I Total Protein Albumin Globulin Albumin/Globulin Ratio 25-OH Vitamin D Total Free T4 Thyroxine (T4) TSH 3rd Generation Arterial Blood Potassium 3.2 L Blood Type Confirm EKG/Cardiology Studies: Cardiology / EKG Studies 01/12/17 07:00 ELECTROCARDIOGRAM DAILY Comment: Reason For Exam: ICB 01/13/17 07:00 ELECTROCARDIOGRAM DAILY Comment: Reason For Exam: ICB Attending/Attestation - Attestation I have personally seen and examined this patient.: Yes I have fully participated in the care of the patient.: Yes I have reviewed all pertinent clinical information: Yes Notes (Text): 01/12/17 17:30 61 y/o M admitted to the icu after being found to have 3.2 x 2.2 cm left basal ganglia and left external capsule hemorrhage Repeat ct head @ 8pm tonight to follow up [facility] Neurosurgery wants conservative management MRI ordered as well. Failed speech .NPO R hemeplegia and aphasia noted. No seizure activity May need to monitor for possible resp failure due to trouble protecting airway. F/U neurology consult. cc time 65 min
--- NOTE | 2017-01-12 11:09 | PN ---
DATE: 01/12/2017 SUBJECTIVE: The patient is seen in ICU bed 1. The patient's is at bedside. The patient is presently on CPAP. The patient is responsive to verbal stimuli, but has expressive aphasia. Overnight nurse's notes were reviewed. The patient's EEG was completed. PHYSICAL EXAMINATION: VITAL SIGNS: T-max 98.4, heart Telemetry shows sinus rhythm, sinus tach in low 100s to 90s. Blood pressure 168/111, 143/117, 158/94, 141/76. Present blood pressure is 139/89, respirations 20-21, O2 sat 98%. Intake output not documented. HEAD: Normocephalic, atraumatic. HEENT: Shows pink conjunctivae, positive nasolabial flattening and facial asymmetry. NECK: Questionable soft carotid bruit. CHEST: Kyphosis. LUNGS: Shows occasional rhonchi upper lung stewart. CARDIOVASCULAR: S1, S2, regular rhythm. ABDOMEN: Protuberant, positive bowel sounds. GENITALIA: Male. RECTAL: Deferred. EXTREMITIES: Shows no pitting edema, trace swelling of the lower extremity. Positive SCDs. No MARQUES stockings. Positive right upper and lower extremity complete weakness. NEUROLOGIC: Motor strength is 0/5 of the right upper and lower extremity. Left upper and lower extremity: The patient is able to move left upper and lower extremity. Speech, patient has expressive aphasia. MUSCULOSKELETAL: Shows a body mass index of 26. Cranial nerves II-XII limited. GAIT: Not tested. PSYCHIATRIC: Not applicable. DIAGNOSTICS: From 01/12 CBC shows granulocytes of 89. ABG 7.38, pCO2 of 49, pO2 110, bicarbonate 26. Chemistry shows a glucose of 173. LFTs are normal. Troponin second set is negative. Potassium is 4.3, magnesium was 1.9. Blood type A positive. Repeat EKG was done today, it shows sinus rhythm, sinus tachycardia, left axis deviation, nonspecific ST-T wave. IMPRESSION AND PLAN: 1. Acute left basal ganglia bleed and hemorrhage without any midline shift or basilar herniation at present. 2. Hypertension. 3. Tachycardia. 4. Hypokalemia. 5. Type 2 non-insulin requiring diabetes mellitus. 6. Hypertriglyceridemia. 7. Expressive aphasia with right-sided facial droop and right hemiparesis and hemiplegia. 8. Gait dysfunction. 9. History of sleep apnea. 10. History of hypertension, diabetes mellitus and hypercholesterolemia. 11. Sinus tachycardia. 12. Hypokalemia. 13. Hypertension. 14. Hypertriglyceridemia. 15. Granulocytosis. 16. Left axis deviation. 17. Sinus tachycardia. 18. Acute left basal ganglia hemorrhage and bleeding 3.2 x 2.2 cm involving basal ganglia and left external capsule. 19. Chronic paranasal sinusitis. 20. Right hemiparesis and hemiplegia. 21. Expressive aphasia. 22. History of sleep apnea. 1. Acute left basal ganglia bleed and hemorrhage without any midline shift or basilar herniation. 2. History of hypertension, diabetes mellitus, dyslipidemia. 3. Tachycardia. 4. Hypertension. 5. Hypokalemia. 6. Hyperglycemia. 7. Hypertriglyceridemia. 8. A-positive blood type. 9. Questionable cardiomegaly. 10. Sudden onset of slurred speech and right-sided facial droop and right- sided weakness, and history of headache for the last few days. 11. Hypokalemia. 12. Sinus tachycardia. 13. Left axis deviation. PLAN: At this time, patient has been ordered serial labs. CURRENT CONSULTATIONS: Cardiology, neurology and neurosurgery. CURRENT MEDICATIONS: 1. IV acetaminophen IV q. 6 hours. 2. Decadron 4 mg IV q. 6 hours. 3. DuoNeb nebulizer every 6 hours. 4. Humalog medium dose sliding scale coverage q. 6. 5. Keppra 500 mg IV q. 12. 6. The patient has received potassium riders yesterday. The patient is on Protonix 40 mg IV q. 12, IV fluids 0.9 normal saline at 60 mL an hour, Toradol 30 mg IV q. 6 hours p.r.n. 7. Labetalol 10 mg IV q.2 hours p.r.n. 9. Tylenol suppository q. 6 hours p.r.n. 10. Zofran 4 mg IV q. 6 hours p.r.n. MRI of the brain without contrast pending. The patient is on CPAP at 12, FiO2 28%. Repeat EKG ordered. Echo ordered. EEG ordered. The patient is n.p.o. diet. The patient is on bed rest, fingerstick blood sugar q. 6, head of the bed at 30 degrees. Neuro checks, seizure precautions, suction airway, MARQUES stockings, SCDs. The patient has been ordered occupational therapy, physical therapy, speech therapy, swallowing evaluation. The patient's case discussed with the nurses with physical therapy, occupational therapy, and speech therapist. The patient's condition: Critical condition. Overall guarded prognosis. Discussed with the patient's who is present at the bedside. The patient's further management is dependent upon the patient's clinical condition, hemodynamic status, and as per patient's response to therapeutic intervention, as per patient's diagnostic test results and as per recommendation by all physicians involved in the care of the patient. Time spent in entire management, more than 35 minutes. Dictated and electrically signed, not read. Milton Rodas MD cc: [id number] TT: 01/12/2017 11:08:30 Confirmation # [id number] Dictation # [id number] MTDD
[2017-01-12] MEDS: levETIRAcetam 500mg IVPB 100 ML IVPB SCH ×2 (11:12→22:45)
[2017-01-12 12:41] LABS: ARTERIAL BLOOD GAS HCO3 23.7 mmol/L (21-28); ARTERIAL BLOOD GAS PH 7.34 (7.35-7.45)
--- NOTE | 2017-01-12 16:31 | CARD ---
APPROVED REPORT EXAM: Two-dimensional and M-mode echocardiogram with Doppler and color Doppler. INDICATION CVA/TIA ICB 2D DIMENSIONS IVSd1.1 (0.7-1.1cm)LVDd3.7 (3.9-5.9cm) PWd1.4 (0.7-1.1cm)LVDs2.7 (2.5-4.0cm) FS (%) 26.8 %LVEF (%)53.0 (>50%) M-Mode DIMENSIONS Aortic Root3.40 (2.2-3.7cm)Aortic Cusp Exc.1.90 (1.5-2.0cm) Aortic Valve AoV Peak Cgqnfjmq692.0cm/Jas Peak GR.7mmHg Mitral Valve E/A ratio0.0 TDI E/Lateral E'0.0E/Medial E'0.0 Pulmonary Valve PV Peak Xrrimxpo26.8cm/sPV Peak Grad.3mmHg Tricuspid Valve TR Peak [id number]/sRAP [id number] Peak Gr.11mmHg [id number] LEFT VENTRICLE The left ventricle is normal size. There is normal left ventricular wall thickness. The left ventricular function is normal. The left ventricular ejection fraction is within the normal range. There is normal LV segmental wall motion. Transmitral Doppler flow pattern is Grade I-abnormal relaxation pattern. RIGHT VENTRICLE The right ventricle is mildly dilated. There is normal right ventricular wall thickness. The right ventricular systolic function is normal. ATRIA The left atrium size is normal. The right atrium size is normal. AORTIC VALVE The aortic valve is not well visualized. MITRAL VALVE The mitral valve is mildly thickened. TRICUSPID VALVE There is no pulmonary hypertension. GREAT VESSELS The aortic root is normal in size. PERICARDIAL EFFUSION There is a small loculated anterior pericardial effusion. <Conclusion> The left ventricle is normal size. There is normal left ventricular wall thickness. The left ventricular function is normal. The left ventricular ejection fraction is within the normal range. There is normal LV segmental wall motion. Transmitral Doppler flow pattern is Grade I-abnormal relaxation pattern. There is a small loculated anterior pericardial effusion.
--- NOTE | 2017-01-12 18:30 | CARD ---
APPROVED REPORT EKG Measurement Heart [id number] <Conclusion> Normal sinus rhythm Nonspecific ST and T wave abnormality Abnormal ECG
--- NOTE | 2017-01-12 18:42 | CARD ---
APPROVED REPORT EKG Measurement Heart [id number] <Conclusion> Sinus tachycardia Left axis deviation Nonspecific ST abnormality Abnormal ECG
--- NOTE | 2017-01-12 18:47 | CT ---
PROCEDURE: CT HEAD WITHOUT CONTRAST. HISTORY: Left basal ganglia hemorrhage. COMPARISON: January 11, 2017. CT head TECHNIQUE: Axial computed tomography images were obtained through the head/brain without intravenous contrast. Radiation dose: Total exam DLP = 774.23 mGy-cm. This CT exam was performed using one or more of the following dose reduction techniques: Automated exposure control, adjustment of the mA and/or kV according to patient size, and/or use of iterative reconstruction technique. FINDINGS: HEMORRHAGE: Left basal ganglia/ internal capsule hemorrhage. Findings are stable. BRAIN: Greater degree of edema, mass effect upon cortical sulci and lateral horn of the left ventricle. No atrophy or chronic microvascular ischemic changes. VENTRICLES: No evidence of obstructive hydrocephalus. Asymmetry of the ventricles more prominent on current study than seen previously related to edema in the left hemisphere. CALVARIUM: Unremarkable. PARANASAL SINUSES: No significant interval change compared to the prior examination(s). MASTOID AIR CELLS: Unremarkable as visualized. No inflammatory changes. OTHER FINDINGS: None. IMPRESSION: Increasing edema, mass effect left hemisphere related to acute parenchymal hemorrhage. The overall hemorrhage is approximately stable, there is no evidence of intraventricular hemorrhage.
--- NOTE | 2017-01-12 19:04 | EEG ---
DATE: 01/12/2017 CONDITION ON RECORDING: Is drowsy. DIAGNOSES: Left basal ganglia bleed and altered mental status. MEDICATIONS: Reviewed via nurses' reconciliation sheet. INTERPRETATION: This is a 16-channel international recording. The background activity is composed o f 6-7 cycles per second. There is a limited amount of beta activity of 16-20 cycles per second seen in this recording. There was an increased amount of theta activity of 5-7 cycles per second seen in this tracing. Drowsiness was characterized by mixed beta and theta activities. Sleep was characteri zed by vertex transient waves, sleep spindles and bilateral slowing. Photic stimulation showed no ch martha in the tracing. There was no paroxysmal activity, just mild left frontotemporal slowing and no seizure-like activity. CONCLUSION: This is an abnormal EEG due to left frontotemporal slowing without any epileptiform acti vity. Please clinically correlate. Solo Hoffman MD cc: [id number] TT: 01/12/2017 19:04:09 Confirmation # [id number] Dictation # [id number] dn
--- NOTE | 2017-01-12 19:12 | CON ---
DATE: 01/12/2017 HISTORY OF PRESENT ILLNESS: This is a 61-year-old male who came to the Emergency Room because of mahesh den onset of facial droop and right-sided weakness, slurred speech and brought here. CAT scan of the head was done, which showed left basal ganglia bleed and the patient was admitted to the ICU. The p atient was at his mother's and suddenly noted to be unsteady gait and right-sided weakness, s lurred speech. REVIEW OF SYSTEMS: A 10-point review of system was negative, right-sided weakness and aphasic. ALLERGIES: ASPIRIN AND CRAB. PAST MEDICAL HISTORY: Diabetes, hypertension, dyslipidemia, and sleep apnea. SOCIAL HISTORY: The patient does not smoke, does not drink. PHYSICAL EXAMINATION: HEENT: Normocephalic, atraumatic. The patient has right facial weakness. NEUROLOGIC: Right upper and lower extremity weakness and 0/5 in the right upper and 0/5 right lower. Plantars are upgoing. Strength in the left upper and lower extremity 5/5. Tone normal. Deep tend on reflexes 1+. Sensory appears intact in the left side and decreased on the right side. Cerebellar , gait was deferred. IMPRESSION: A 61-year-old male with sudden onset of right-sided weakness, aphasia, right facial droo p, and CAT scan shows a left basal ganglia hemorrhage. The patient is on Decadron and Keppra. Repea t CAT scan will be done today. Further management after the results of above tests. Renan Hoffman MD cc: [id number] TT: 01/12/2017 19:12:19 Confirmation # [id number] Dictation # [id number]
[2017-01-13] MEDS: Albuterol-Ipratrop 3 mg / 0.5 (3 ml) UD IH SCH ×3 (00:07→20:09)
[2017-01-13] MEDS: Dexamethasone 4 mg/1 ml IVP SCH (05:23)
[2017-01-13] MEDS: Insulin Lispro (humaLOG) MEDIUM Coverage SC SCH ×4 (05:36→22:27)
[2017-01-13 05:49] LABS: HEMATOCRIT 44.5 % (42.0-52.0); MEAN CELL VOLUME 87.4 fL (80.0-105.0); MEAN CORPUSCULAR HEMOGLOBIN 30.5 pg (25.0-35.0); MEAN CORPUSCULAR HGB CONC 34.8 g/dl (31.0-37.0); MEAN PLATELET VOLUME 9.9 fl (7.0-11.0); PLATELET COUNT 277 10^3/uL (120.0-450.0); RED CELL DISTRIBUTION WIDTH 12.6 % (11.5-14.5); WHITE BLOOD COUNT 18.1 10^3/ul (4.5-11.0)
[2017-01-13 05:54] LABS: ADD MANUAL DIFF? YES
[2017-01-13 06:08] LABS: ALKALINE PHOSPHATASE 66 U/L (38-133); ALT/SGPT 41 U/L (7-56); AST/SGOT 31 U/L (15-59); BILIRUBIN,DIRECT 0.5 mg/dL (0.0-0.4); BILIRUBIN,TOTAL 0.6 mg/dL (0.2-1.3); BLOOD UREA NITROGEN 18 mg/dL (7-21); CALCIUM 8.9 mg/dL (8.4-10.5); CARBON DIOXIDE 28 mmol/L (21-33); CHLORIDE 101 mmol/L (98-107); GFR AFRICAN-AMERICAN > 60; GLUCOSE,RANDOM 156 mg/dL (70-110); PHOSPHOROUS 2.7 mg/dL (2.5-4.5); POTASSIUM 3.8 mmol/L (3.6-5.0); SODIUM 140 mmol/L (132-148)
[2017-01-13 06:30] LABS: TROPONIN I < 0.01 ng/mL
[2017-01-13 06:32] LABS: NEUTROPHIL 80 % (50.0-70.0)
[2017-01-13 06:33] LABS: BAND 8 % (0-2); PLATELET ESTIMATE NORMAL (NORMAL)
--- NOTE | 2017-01-13 07:14 | CP.CCUPN ---
<Vannessa Gill - Last Filed: 01/13/17 11:06> CCU Subjective - Physician Review Events Since Last Encounter (Free Text): 01/13/17 08:40 Patient seen and examined bedside. No acute events overnight. Patient still has R hemiplegia, mostly aphasic, can nod/shake head for yes/no answers. Denies CP, SOB, abd pain, nausea, chills. Critical Care Time Spent (in minutes): 30 CCU Objective - Vital Signs / Intake & Output Vital Signs (Last 4 hours): Vital Signs Temp Pulse Resp BP Pulse Ox 01/13/17 06:00 92 H 26 H 127/81 97 01/13/17 05:25 101 H 27 H 97 01/13/17 05:00 102 H 15 131/77 97 01/13/17 04:42 96 H 22 93 L 01/13/17 04:00 98 F 105 H 21 112/65 88 L Intake and Output (Last 8hrs): Intake & Output 01/12/17 01/13/17 01/13/17 22:59 06:59 14:59 Intake Total 760 820 Balance 760 820 Intake: IV 760 820 Left Wrist 760 820 Oral 0 - Physical Exam Head: Positive for: Atraumatic, Normocephalic Pupils: Positive for: PERRL Extroacular Muscles: Positive for: EOMI Conjunctiva: Positive for: Normal Mouth: Positive for: Moist Mucous Membranes Neck: Positive for: Normal Range of Motion Respiratory/Chest: Positive for: Clear to Auscultation, Good Air Exchange. Negative for: Respiratory Distress, Accessory Muscle Use Cardiovascular: Positive for: Regular Rate and Rhythm, Normal S1, S2. Negative for: Murmurs Abdomen: Positive for: Normal Bowel Sounds. Negative for: Tenderness, Distention, Peritoneal Signs Back: Positive for: Normal Inspection Upper Extremity: Positive for: Normal Inspection. Negative for: Cyanosis, Edema Lower Extremity: Positive for: Normal Inspection. Negative for: Edema Neurological: Positive for: GCS=15, Motor Func Grossly Intact. Negative for: CN II-XII Intact, Speech Normal Skin: Positive for: Warm, Dry, Normal Color. Negative for: Rashes Psychiatric: Positive for: Alert - Medications Active Medications: Active Medications Generic Name Dose Route Start Last Admin Trade Name Freq PRN Reason Stop Dose Admin Acetaminophen 325 mg 01/11/17 22:52 Tylenol 325 Mg Supp RC Q6H PRN TEMP>=99.5F Albuterol/Ipratropium 3 ml 01/11/17 23:00 01/13/17 00:07 Duoneb 3 Mg/0.5 Mg (3 Ml) Ud IH 01/19/17 05:01 3 ml Q6H BEVERLY Administration Dexamethasone 4 mg 01/11/17 23:00 01/13/17 05:23 Decadron Inj IVP 4 mg Q6H BEVERLY Administration Acetaminophen 100 mls @ 400 mls/hr 01/11/17 23:00 Ofirmev IVPB 01/13/17 23:01 Q6H PRN Fever >100.4 F Sodium Chloride 1,000 mls @ 60 mls/hr 01/12/17 00:52 01/12/17 23:15 Sodium Chloride 0.9% IV 01/19/17 14:19 60 mls/hr .[id number] BEVERLY Administration Levetiracetam 100 mls @ 200 mls/hr 01/12/17 10:00 01/12/17 22:45 Keppra 500mg Ivpb IVPB 200 mls/hr Q12 BEVERLY Administration Insulin Human Lispro 0 units 01/11/17 23:00 01/13/17 05:36 Humalog Med SC 1 units Q6H BEVERLY Administration Ketorolac Tromethamine 30 mg 01/11/17 22:52 Toradol IVP 01/13/17 22:53 Q6H PRN Pain, moderate (4-7) Labetalol HCl 10 mg 01/11/17 23:03 01/12/17 04:16 Trandate IV 10 mg Q2H PRN Administration Systolic Blood Pressure Ondansetron HCl 4 mg 01/11/17 22:55 Zofran Inj IVP Q6H PRN Nausea/Vomiting Pantoprazole Sodium 40 mg 01/11/17 23:00 01/12/17 22:01 Protonix Inj IVP 40 mg Q12 BEVERLY Administration - Patient Studies Lab Studies: Lab Studies 01/13/17 01/12/17 01/12/17 Range/Units 05:00 12:30 06:00 WBC 18.1 H D (4.5-11.0) 10^3/ul RBC 5.09 (3.5-6.1) 10^6/uL Hgb 15.5 (14.0-18.0) gm/dL Hct 44.5 (42.0-52.0) % MCV 87.4 (80.0-105.0) fL MCH 30.5 (25.0-35.0) pg MCHC 34.8 (31.0-37.0) g/dl RDW 12.6 (11.5-14.5) % Plt Count 277 (120.0-450.0) 10^3/uL MPV 9.9 (7.0-11.0) fl Gran # 14.50 H (1.4-6.5) Neutrophils % (Manual) 80 H (50.0-70.0) % Band Neutrophils % 8 H (0-2) % Lymphocytes % (Manual) 8 L (22.0-35.0) % Monocytes % (Manual) 4 (1.0-6.0) % Platelet Evaluation Normal (NORMAL) pCO2 44 (35-45) mm/Hg pO2 128.0 H (80-100) mm/Hg HCO3 23.7 (21-28) mmol/L ABG pH 7.34 L (7.35-7.45) ABG Total CO2 25.1 (22-28) mmol.L ABG O2 Saturation 98.6 H (95-98) % ABG Base Excess -2.2 L (-2.0-3.0) mmol/L ABG Potassium 3.2 L (3.6-5.2) mmol/L Glucose 143 H (75-110) mg/dl Lactate 1.7 (0.7-2.1) mmol/L FiO2 28.0 % Sodium 140 140.0 (132-148) mmol/L Potassium 3.8 (3.6-5.0) mmol/L Chloride 101 108.0 H (98-107) mmol/L Carbon Dioxide 28 (21-33) mmol/L Anion Gap 15 (10-20) BUN 18 (7-21) mg/dL Creatinine 0.9 (0.5-1.4) mg/dL Est GFR ( Amer) > 60 Est GFR (Non-Af Amer) > 60 Random Glucose 156 H (70-110) mg/dL Calcium 8.9 (8.4-10.5) mg/dL Phosphorus 2.7 (2.5-4.5) mg/dL Magnesium 2.0 (1.7-2.2) mg/dL Total Bilirubin 0.6 (0.2-1.3) mg/dL Direct Bilirubin 0.5 H (0.0-0.4) mg/dL AST 31 (15-59) U/L ALT 41 (7-56) U/L Alkaline Phosphatase 66 (38-133) U/L Troponin I < 0.01 < 0.01 ng/mL Total Protein 8.0 (5.8-8.3) g/dL Albumin 4.0 (3.0-4.8) g/dL Globulin 3.9 gm/dL Albumin/Globulin Ratio 1.0 L (1.1-1.8) 25-OH Vitamin D Total 18.7 L (30.0-100.0) NG/ML Free T4 1.58 (0.78-2.19) ng/dL Thyroxine (T4) 10.6 (5.5-11.0) ug/dL TSH 3rd Generation 0.40 L (0.46-4.68) mIU/mL Arterial Blood Potassium 3.2 L (3.6-5.2) mmol/L Laboratory Results - last 24 hr 01/12/17 01/12/17 01/13/17 06:00 12:30 05:00 WBC 18.1 H D RBC 5.09 Hgb 15.5 Hct 44.5 MCV 87.4 MCH 30.5 MCHC 34.8 RDW 12.6 Plt Count 277 MPV 9.9 Gran # 14.50 H Neutrophils % (Manual) 80 H Band Neutrophils % 8 H Lymphocytes % (Manual) 8 L Monocytes % (Manual) 4 Platelet Evaluation Normal pCO2 44 pO2 128.0 H HCO3 23.7 ABG pH 7.34 L ABG Total CO2 25.1 ABG O2 Saturation 98.6 H ABG Base Excess -2.2 L ABG Potassium 3.2 L Sodium 140.0 140 Chloride 108.0 H 101 Glucose 143 H Lactate 1.7 FiO2 28.0 Potassium 3.8 Carbon Dioxide 28 Anion Gap 15 BUN 18 Creatinine 0.9 Est GFR ( Amer) > 60 Est GFR (Non-Af Amer) > 60 Random Glucose 156 H Calcium 8.9 Phosphorus 2.7 Magnesium 2.0 Total Bilirubin 0.6 Direct Bilirubin 0.5 H AST 31 ALT 41 Alkaline Phosphatase 66 Troponin I < 0.01 < 0.01 Total Protein 8.0 Albumin 4.0 Globulin 3.9 Albumin/Globulin Ratio 1.0 L 25-OH Vitamin D Total 18.7 L Free T4 1.58 Thyroxine (T4) 10.6 TSH 3rd Generation 0.40 L Arterial Blood Potassium 3.2 L EKG/Cardiology Studies: Cardiology / EKG Studies 01/12/17 07:00 ELECTROCARDIOGRAM DAILY Comment: Reason For Exam: ICB 01/13/17 07:00 ELECTROCARDIOGRAM DAILY Comment: Reason For Exam: ICB Fingerstick Blood Sugar Results: 151 Review of Systems - Constitutional Constitutional: absent: Fever, Chills - EENT Eyes: absent: Change in Vision - Cardiovascular Cardiovascular: absent: Chest Pain, Diaphoresis, Dyspnea - Respiratory Respiratory: absent: Cough, Dyspnea, Pain on Inspiration - Gastrointestinal Gastrointestinal: absent: Abdominal Pain, Nausea, Vomiting - Neurological Neurological: Focal Weakness (RUE, RLE, no changes), Headaches. absent: Loss of Vision, Sensory Deficit - Endocrine Endocrine: absent: Excessive Sweating Critical Care Progress Note - Ventilator Checklist PUD Prophalyxis: Yes Assessment/Plan - Assessment and Plan (Free Text) Assessment: 61 yo M with acute 3.2 x 2.2 cm left basal ganglia and left external capsule hemorrhage with R hemiplegia, aphasia Plan: Neuro: AAOx2, expressive aphasia, Right sided facial droop, R hemiplegia CT head without contrast shows acute 3.2 x 2.2 cm left basal ganglia and left external capsule hemorrhage without significant mass effect and no resulting midline shift Repeat CT head 01/12 shows increasing edema, mass effect upon cortical sulci and lateral horn of L ventricle related to acute parenchymal hemorrhage. Overall hemorrhage appears stable. EEG shows left frontotemporal slowing without epileptiform activity Will discontinue Decadron, Continue keppra for another 24 hours as per neurology. Ok'ed with neurology Management as per neurology and neurosurgery. No acute surgical intervention planned by neurosurgery at this time. Maintain normothermia Pulm: BiPAP Qhs. Maintain spo2>90, pao2>60 Monitor resp function CV: 2D ECHO shows LVEF 53%, grade I diastolic dysfunction, small loculated anterior pericardial effusion Cardio following Continue Labetalol PRN HTN. Cardio recs appreciated Renal: No acute issues. Continue to monitor GI: GI ppx Failed swallow eval. Re-evaluated by speech pathology today, will try soft nectar-thickened diet Spoke with patient and regarding possibility of future PEG if patient is unable to safely take PO diet Endo: Medium lispro SSI. Maintain euglycemia 140-180 A1C 6.7 ID: Leukocytosis 18.1 today, afebrile -- possible aspiration given dysphagia vs steroids vs reactive vs other infection Blood culture, urine culture pending On Levaquin and aztreonam as per ID and primary team. s/p one dose Vanc as per ID Heme: Hb stable. Continue to monitor DVT/GI ppx: SCDs, PT/OT, protonix, pureed HHD - Date & Time Date: 01/13/17 Time: 07:14 <Janene FIELDS,Thomas Alvarez - Last Filed: 01/13/17 15:34> CCU Objective - Vital Signs / Intake & Output Intake and Output (Last 8hrs): Intake & Output 01/13/17 01/13/17 01/13/17 06:59 14:59 22:59 Intake Total 820 Balance 820 Intake: IV 820 Left Wrist 820 - Medications Active Medications: Active Medications Generic Name Dose Route Start Last Admin Trade Name Freq PRN Reason Stop Dose Admin Acetaminophen 325 mg 01/11/17 22:52 Tylenol 325 Mg Supp RC Q6H PRN TEMP>=99.5F Albuterol/Ipratropium 3 ml 01/11/17 23:00 01/13/17 07:45 Duoneb 3 Mg/0.5 Mg (3 Ml) Ud IH 01/19/17 05:01 3 ml Q6H BEVERLY Administration Acetaminophen 100 mls @ 400 mls/hr 01/11/17 23:00 Ofirmev IVPB 01/13/17 23:01 Q6H PRN Fever >100.4 F Sodium Chloride 1,000 mls @ 60 mls/hr 01/12/17 00:52 01/12/17 23:15 Sodium Chloride 0.9% IV 01/19/17 14:19 60 mls/hr .[id number] BEVERLY Administration Levetiracetam 100 mls @ 200 mls/hr 01/12/17 10:00 01/13/17 10:42 Keppra 500mg Ivpb IVPB 200 mls/hr Q12 BEVERLY Administration Aztreonam 100 mls @ 100 mls/hr 01/13/17 08:45 01/13/17 10:42 Azactam 1 Gm IVPB 01/18/17 08:46 100 mls/hr Q8 BEVERLY Administration Protocol Insulin Human Lispro 0 units 01/11/17 23:00 01/13/17 05:36 Humalog Med SC 1 units Q6H BEVERLY Administration Ketorolac Tromethamine 30 mg 01/11/17 22:52 Toradol IVP 01/13/17 22:53 Q6H PRN Pain, moderate (4-7) Labetalol HCl 10 mg 01/11/17 23:03 01/12/17 04:16 Trandate IV 10 mg Q2H PRN Administration Systolic Blood Pressure Ondansetron HCl 4 mg 01/11/17 22:55 Zofran Inj IVP Q6H PRN Nausea/Vomiting Pantoprazole Sodium 40 mg 01/11/17 23:00 01/13/17 10:41 Protonix Inj IVP 40 mg Q12 BEVERLY Administration - Patient Studies Lab Studies: Microbiology Studies 01/11/17 23:10 MRSA Culture (Admit) - Final Naris MRSA NOT DETECTED Lab Studies 01/13/17 Range/Units 05:00 WBC 18.1 H D (4.5-11.0) 10^3/ul RBC 5.09 (3.5-6.1) 10^6/uL Hgb 15.5 (14.0-18.0) gm/dL Hct 44.5 (42.0-52.0) % MCV 87.4 (80.0-105.0) fL MCH 30.5 (25.0-35.0) pg MCHC 34.8 (31.0-37.0) g/dl RDW 12.6 (11.5-14.5) % Plt Count 277 (120.0-450.0) 10^3/uL MPV 9.9 (7.0-11.0) fl Gran # 14.50 H (1.4-6.5) Neutrophils % (Manual) 80 H (50.0-70.0) % Band Neutrophils % 8 H (0-2) % Lymphocytes % (Manual) 8 L (22.0-35.0) % Monocytes % (Manual) 4 (1.0-6.0) % Platelet Evaluation Normal (NORMAL) Sodium 140 (132-148) mmol/L Potassium 3.8 (3.6-5.0) mmol/L Chloride 101 (98-107) mmol/L Carbon Dioxide 28 (21-33) mmol/L Anion Gap 15 (10-20) BUN 18 (7-21) mg/dL Creatinine 0.9 (0.5-1.4) mg/dL Est GFR ( Amer) > 60 Est GFR (Non-Af Amer) > 60 Random Glucose 156 H (70-110) mg/dL Calcium 8.9 (8.4-10.5) mg/dL Phosphorus 2.7 (2.5-4.5) mg/dL Magnesium 2.0 (1.7-2.2) mg/dL Total Bilirubin 0.6 (0.2-1.3) mg/dL Direct Bilirubin 0.5 H (0.0-0.4) mg/dL AST 31 (15-59) U/L ALT 41 (7-56) U/L Alkaline Phosphatase 66 (38-133) U/L Troponin I < 0.01 ng/mL Total Protein 8.0 (5.8-8.3) g/dL Albumin 4.0 (3.0-4.8) g/dL Globulin 3.9 gm/dL Albumin/Globulin Ratio 1.0 L (1.1-1.8) Laboratory Results - last 24 hr 01/13/17 05:00 WBC 18.1 H D RBC 5.09 Hgb 15.5 Hct 44.5 MCV 87.4 MCH 30.5 MCHC 34.8 RDW 12.6 Plt Count 277 MPV 9.9 Gran # 14.50 H Neutrophils % (Manual) 80 H Band Neutrophils % 8 H Lymphocytes % (Manual) 8 L Monocytes % (Manual) 4 Platelet Evaluation Normal Sodium 140 Potassium 3.8 Chloride 101 Carbon Dioxide 28 Anion Gap 15 BUN 18 Creatinine 0.9 Est GFR ( Amer) > 60 Est GFR (Non-Af Amer) > 60 Random Glucose 156 H Calcium 8.9 Phosphorus 2.7 Magnesium 2.0 Total Bilirubin 0.6 Direct Bilirubin 0.5 H AST 31 ALT 41 Alkaline Phosphatase 66 Troponin I < 0.01 Total Protein 8.0 Albumin 4.0 Globulin 3.9 Albumin/Globulin Ratio 1.0 L EKG/Cardiology Studies: Cardiology / EKG Studies 01/13/17 07:00 ELECTROCARDIOGRAM DAILY Comment: Reason For Exam: ICB Critical Care Progress Note - Nutrition Nutrition: Nutrition Category Date Time Status Heart Healthy Diet [DIET] Diets 01/13/17 Lunch Ordered Attending/Attestation - Attestation I have personally seen and examined this patient.: Yes I have fully participated in the care of the patient.: Yes I have reviewed all pertinent clinical information: Yes Notes (Text): 01/13/17 15:31 61 y/o M w/ Acute ICH Minimal improvement of R hemiplegia and no change in lack of speech. Patient barely passed swallow eval but remains an aspiration risk. Elevated WBC without any source, maybe reactive and steroids maybe contributing. CXR images reviewed without any new findings. PT.OT needed Empiric abx per ID. BP control achieved in the first 48hrs. Could be a possible candidate for PEG placement and tube feedings. possible transfer to medical floor later today cc time 55 min
[2017-01-13] MEDS ORDERED: Vancomycin 1gm in NS 250ml 250 ML IVPB STA (08:37)
[2017-01-13] MEDS: levETIRAcetam 500mg IVPB 100 ML IVPB SCH ×2 (10:42→22:13)
[2017-01-13] MEDS: Aztreonam 1 Gm in NS 100mL 100 ML IVPB SCH ×3 (10:42→22:13)
--- NOTE | 2017-01-13 11:58 | PN ---
DATE: 01/13/2017 CHIEF COMPLAINT: Follow up for left basal ganglia hemorrhage. SUBJECTIVE: The patient is seen and examined at bedside. The patient is sitting up in the chair, wo rking with speech therapy currently. He has expressive aphasia and right hemiplegia and with a mild right facial droop. His is at bedside. His repeat CT scan on 01/12/2017 showed some mild incre ase in edema in the left hemisphere related to his left basal ganglia internal capsule hemorrhage, wh ich is expected. He currently will be tapered off his Decadron. Following simple commands. He is a ble to understand; his headache is much better today. Blood pressures are stabilized. PAST MEDICAL HISTORY: History of hypertension and diabetes. ALLERGIES: ALLERGIC TO ASPIRIN AND CRAB. FAMILY HISTORY: Multiple family members with diabetes. SOCIAL HISTORY: No illicit drug use, smoking, or ETOH abuse. MEDICATIONS AT HOME: Nasonex, simvastatin, Lopressor, Singulair, Glucophage, fenofibrate. REVIEW OF SYSTEMS: A 14-point review of systems is negative except for the HPI. He has inability to express himself due to expressive aphasia from his left basal ganglia hemorrhage. PHYSICAL EXAMINATION: VITAL SIGNS: Temperature of 98, pulse rate of 96, blood pressure 131/77, respiratory rate 22, oxygen saturation 93% on room air. GENERAL: The patient is sitting up in the chair, in no acute distress. HEENT: Atraumatic, normocephalic. PERRLA. Extraocular muscles intact. He has a right facial droop . HEART: S1, S2, normal rate and rhythm. No murmurs, rubs, or gallops. LUNGS: Clear to auscultation. No adventitious sounds. ABDOMEN: Soft, nontender, nondistended. Bowel sounds are present. EXTREMITIES: No clubbing, no cyanosis. Peripheral pulses 2+ felt bilaterally. NECK: Supple, no JVD, no adenopathy noted. NEUROLOGIC: The patient is alert, oriented to person and place and year. He has expressive aphasia, poor attention span. Cranial nerves II through XII are intact except for right facial droop. MOTOR: Has right hemiparesis. Left side is intact. Toes are upgoing. SENSORY: Decreased to light touch and pinprick up to the calves bilaterally. Decreased vibration at toes. DEEP TENDON REFLEXES: 2+ throughout, 1 at the ankles. COORDINATION: [id number] intact on the left. Difficult on the right due to right hemiparesis fr om CVA. LABORATORY DATA: Sodium is 140, potassium 3.8, chloride of 101, carbon dioxide 28, BUN of 18, creati nine 0.9, random glucose 156, A1c 6.7. Vitamin D is 18.7. ASSESSMENT AND PLAN: This is a 61-year-old man with history of hypertension, diabetes who came with a headache and elevated systolic and diastolic blood pressures and expressive aphasia and right side facial droop, found to have an acute left basal ganglia and abbott radiata hemorrhage likely secondar y to hypertensive urgency and uncontrolled risk factors. His EEG showed left frontotemporal slowing consistent with his underlying hemorrhage in the left basal ganglia area. No evidence of any epilept iform activity. At this time, recommend: 1. Repeat the CAT scan of the head in about 48 hours. 2. Avoid any antiplatelets, any anticoagulants for now. Can restart baby aspirin in 4 weeks after h is acute hemorrhage. 3. Continue with Keppra 500 mg IV q. 12 for now since there is mild edema and can taper off as he ge ts discharged from the hospital. 4. corrected currently. 5. He will need physical, occupational and speech therapy and acute rehab. Thank you for this followup. Solo Hoffman MD cc: [id number] TT: 01/13/2017 11:58:02 Confirmation # [id number] Dictation # [id number] an
--- NOTE | 2017-01-13 12:44 | RAD ---
HISTORY: rule out pneumonia COMPARISON: 01/11/2017 FINDINGS: LUNGS: No active pulmonary disease. PLEURA: No significant pleural effusion identified, no pneumothorax apparent. CARDIOVASCULAR: Normal. OSSEOUS STRUCTURES: No significant abnormalities. VISUALIZED UPPER ABDOMEN: Normal. OTHER FINDINGS: None. IMPRESSION: No active disease.
--- NOTE | 2017-01-13 13:50 | PN ---
DATE: 01/13/2017 The patient is seen lying in ICU, bed 1. The patient is out of bed to recliner. The patient is being fed by assistance. The patient appears much more awake. The patient has attempted to talk and speaking in broken words. The patient follows simple commands, moves left upper and lower extremities. The patient is unable to move right upper and lower extremities. PHYSICAL EXAMINATION: VITAL SIGNS: T-max is 98.4. Telemetry shows sinus rhythm, sinus tachycardia in low 100s. Blood pressure 134/94,126/73, 152/78, respirations 15-27, O2 sat 95-97%. Intake output not documented correctly. HEAD: Normocephalic, atraumatic. HEENT: Shows positive facial asymmetry, positive nasolabial flattening. NECK: Soft carotid bruit. CHEST: Kyphosis. LUNGS: Questionable positive rhonchi upper lung stewart. CARDIOVASCULAR: Shows S1, S2, regular rhythm. ABDOMEN: Protuberant, obese, positive bowel sounds. GENITALIA: Male. RECTAL: Deferred. NEUROLOGIC: Weakness and hemiplegia of the right upper and lower extremity. Left upper and lower extremity motor strength is 5/5. GAIT: Not tested. MUSCULOSKELETAL: Shows a body mass index of 26. PSYCHIATRIC: Not applicable. DIAGNOSTICS: WBC count 18.1, hemoglobin and hematocrit, platelets are normal, granulocytes 80, bands 8. PT, PTT is normal. Sodium 140, potassium 3.8, chloride 101, CO2 28, anion gap 15, BUN 18, creatinine 0.8, GFR greater than 60 , glucose 156, hemoglobin A1c 6.7. LFTs are normal. Troponin is negative x 3. Vitamin D is low as 18.7. TSH is low at 0.40, but T4 is normal at 11. MRSA nondetected. Blood type B positive. Repeat CAT scan of the head was done yesterday on 01/12 which shows stable left basal ganglia, internal capsule hemorrhage with edema, mass effect upon cortical sulci lateral horn of the left ventricle. Echocardiogram noted. The patient was seen by neurology. EEG was read which shows left temporofrontal slowing without epileptiform activity. IMPRESSION AND PLAN: 1. Acute left basal ganglia and internal capsule intracerebral bleed and hemorrhage with right hemiplegia. 2. Expressive aphasia with possible swallowing and feeding dysfunction. 3. Hypertension. 4. Tachycardia. 5. Questionable systemic inflammatory response syndrome with tachycardia, leukocytosis, bandemia. 6. History of hypertension, dyslipidemia, type 2 diabetes. 7. History of sleep apnea. 8. Morbid obesity with elevated body mass index of 26. 9. Sleep apnea. 10. Leukocytosis, granulocytosis and bandemia. 11. Type 2 diabetes mellitus with hemoglobin A1c of 6.7. 12. Hypovitaminosis D. 13. History of hypothyroidism. 14. Hypovitaminosis D. 15. Left basal ganglia internal capsule hemorrhage with greater degree and increasing edema and mass effect on the left hemisphere related to the acute parenchymal hemorrhage. 16. Ventricular asymmetry related to edema in the left cerebral hemisphere. 17. Left frontotemporal slowing without epileptiform activity. 18. Questionable systemic inflammatory response syndrome. 19. Hypokalemia. 20. Expressive aphasia and right-sided facial droop. 21. Hypovitaminosis D. 22. Hypertriglyceridemia. 23. Left ventricular ejection fraction of 53%. 24. Grade I abnormal relaxation pattern. 25. Gait dysfunction secondary to right hemiplegia. 26. Acute left basal ganglia and abbott radiata intracerebral bleed and hemorrhage secondary to hypertensive urgency. 27. History of sleep apnea. 18. mild receptive and expressive aphasia with moderate to severe oropharyngeal dysphagia. 1. Acute left basal ganglia bleed and hemorrhage without any midline shift or basilar herniation at present. 2. Hypertension. 3. Tachycardia. 4. Hypokalemia. 5. Type 2 non-insulin requiring diabetes mellitus. 6. Hypertriglyceridemia. 7. Expressive aphasia with right-sided facial droop and right hemiparesis and hemiplegia. 8. Gait dysfunction. 9. History of sleep apnea. 10. History of hypertension, diabetes mellitus and hypercholesterolemia. 11. Sinus tachycardia. 12. Hypokalemia. 13. Hypertension. 14. Hypertriglyceridemia. 15. Granulocytosis. 16. Left axis deviation. 17. Sinus tachycardia. 18. Acute left basal ganglia hemorrhage and bleeding 3.2 x 2.2 cm involving basal ganglia and left external capsule. 19. Chronic paranasal sinusitis. 20. Right hemiparesis and hemiplegia. 21. Expressive aphasia. 22. History of sleep apnea. 1. Acute left basal ganglia bleed and hemorrhage without any midline shift or basilar herniation. 2. History of hypertension, diabetes mellitus, dyslipidemia. 3. Tachycardia. 4. Hypertension. 5. Hypokalemia. 6. Hyperglycemia. 7. Hypertriglyceridemia. 8. A-positive blood type. 9. Questionable cardiomegaly. 10. Sudden onset of slurred speech and right-sided facial droop and right- sided weakness, and history of headache for the last few days. 11. Hypokalemia. 12. Sinus tachycardia. 13. Left axis deviation. 1. Moderate to severe oropharyngeal dysphagia with risk of aspiration. 2. Receptive and expressive aphasia. PLAN: At this time, the patient has been ordered serial labs. The patient has been ordered blood and urine cultures. CONSULTATIONS: 1. Cardiology. 2. Infectious disease. 3. Neurology. 4. Neurosurgery. We are still awaiting for neurosurgery input. Procalcitonin level is ordered. MEDICATIONS: 1. The patient is on IV acetaminophen. 2. Azactam 1 g IV q. 8 started by infectious disease. 3. DuoNeb nebulizer q. 6 hours. 4. Humalog medium dose sliding scale coverage q. 6. 5. Keppra 500 IV q. 12. 6. Protonix 40 mg IV q. 12 for GI prophylaxis. 7. IV fluids 0.9 normal saline at 60 mL an hour. 8. Toradol 30 mg IV q. 6 p.r.n. 9. Labetalol 10 mg IV q. 2 hours p.r.n. 10. Tylenol 325 q. 6 p.r.n. 11. The patient was given a dose of vancomycin 1 gram IV stat. 12. Zofran 4 mg IV q. 6 p.r.n. The patient is on CPAP. The patient has been started on heart healthy diet by the ICU team and the residential solar consultant. The patient is followed by speech therapist and swallowing evaluation. The patient is on neuro checks. The patient is ordered head of the bed at 30 degrees, seizure precautions, suctioned airway, MARQUES stockings, SCDs, occupational and physical therapy and speech and swallow evaluation and treatment ordered. The patient seen by the speech therapist. The patient was found to have moderate to severe oropharyngeal dysphagia with a risk for aspiration. Speech therapy recommends trial diet of pureed and honey thick liquids, spoon, with aspiration precautions, and to stop oral feeding if patient has excessive cough, wheezy and wet voice, congestion and lethargy or fever. Time spent was more than 35 minutes. Dictated and electronically signed, not read. Milton Rodas MD cc: [id number] TT: 01/13/2017 13:49:44 Confirmation # [id number] Dictation # [id number] an MTDD
--- NOTE | 2017-01-13 13:51 | CP.PCM.PN ---
Subjective - Date & Time of Evaluation Date of Evaluation: 01/13/17 Time of Evaluation: 13:50 - Subjective Subjective: original report dictated by DR. Santana on admission no surgical intervention indicated opinion has not changed Objective - Vital Signs/Intake and Output Vital Signs (last 24 hours): Temp Pulse Resp BP Pulse Ox 98.4 F 113 H 27 H 133/94 H 97 01/13/17 08:00 01/13/17 11:04 01/13/17 11:04 01/13/17 11:00 01/13/17 11:00 Intake and Output: 01/13/17 01/13/17 06:59 18:59 Intake Total 820 Balance 820 - Medications Medications: Current Medications Acetaminophen (Tylenol 325 Mg Supp) 325 mg RC Q6H PRN PRN Reason: TEMP>=99.5F Albuterol/Ipratropium (Duoneb 3 Mg/0.5 Mg (3 Ml) Ud) 3 ml IH Q6H [facility] Stop: 01/19/17 05:01 Last Admin: 01/13/17 07:45 Dose: 3 ml Acetaminophen (Ofirmev) 100 mls @ 400 mls/hr IVPB Q6H PRN PRN Reason: Fever >100.4 F Stop: 01/13/17 23:01 Sodium Chloride (Sodium Chloride 0.9%) 1,000 mls @ 60 mls/hr IV .[id number] [facility] Stop: 01/19/17 14:19 Last Admin: 01/12/17 23:15 Dose: 60 mls/hr Levetiracetam (Keppra 500mg Ivpb) 100 mls @ 200 mls/hr IVPB Q12 [facility] Last Admin: 01/13/17 10:42 Dose: 200 mls/hr Aztreonam (Azactam 1 Gm) 100 mls @ 100 mls/hr IVPB Q8 [facility] PRN Reason: Protocol Stop: 01/18/17 08:46 Last Admin: 01/13/17 10:42 Dose: 100 mls/hr Insulin Human Lispro (Humalog Med) 0 units SC Q6H [facility] Last Admin: 01/13/17 05:36 Dose: 1 units Ketorolac Tromethamine (Toradol) 30 mg IVP Q6H PRN PRN Reason: Pain, moderate (4-7) Stop: 01/13/17 22:53 Labetalol HCl (Trandate) 10 mg IV Q2H PRN PRN Reason: Systolic Blood Pressure Last Admin: 01/12/17 04:16 Dose: 10 mg Ondansetron HCl (Zofran Inj) 4 mg IVP Q6H PRN PRN Reason: Nausea/Vomiting Pantoprazole Sodium (Protonix Inj) 40 mg IVP Q12 [facility] Last Admin: 01/13/17 10:41 Dose: 40 mg - Labs Labs: 01/13/17 05:00 01/13/17 05:00 PT 10.4 Seconds (9.9-11.8) 01/11/17 20:39 INR 0.96 (0.93-1.08) 01/11/17 20:39 APTT 28.0 Seconds (23.7-30.8) 01/11/17 20:39
--- NOTE | 2017-01-13 14:52 | CP.PCM.CON ---
History of Present Illness - History of Present Illness History of Present Illness: 61 year old male with PMH of HTN, DM, dyslipidemia, was initially admitted to [facility] (Formerly [facility]) because of sudden onset of right sided facial droop and slurred speech, which occurred while attending a wake. Prior to this, he had been complaining of headache at nighttime. In the ED, CT head showed acute bleeding in the left basal ganglia and he was brought to the ICU for closer observation. Today, CBC showed new onset leukocytosis with 8% bands. The patient has no efver or chills, no vomiting, no abdominal pain, no chest pain, no headache currently, no rhinorrhea, no sore throat, patient is awake and alert , no hematuria, no diarrhea. Infectious Diseases consult is requested to further evaluate and manage. Review of Systems - Review of Systems All systems: reviewed and no additional remarkable complaints except (as per HPI ) Past Patient History - Infectious Disease Hx of Infectious Diseases: None - Past Medical History & Family History Past Medical History?: Yes Pertinent Family History: DM in the family - Past Social History Smoking Status: Unknown If Ever Smoked Alcohol: None Drugs: Denies Home Situation {Lives}: With Family - CARDIAC Hx Hypertension: Yes - PULMONARY Hx Respiratory Disorders: No - NEUROLOGICAL HX Cerebrovascular Accident: Yes - ENDOCRINE/METABOLIC Hx Diabetes Mellitus Type 2: Yes - MUSCULOSKELETAL/RHEUMATOLOGICAL Hx Falls: No - PSYCHIATRIC Hx Substance Use: No - SURGICAL HISTORY Other/Comment: prostatectomry 2009 - ANESTHESIA Hx Anesthesia: No Meds Allergies/Adverse Reactions: Allergies Allergy/AdvReac Type Severity Reaction Status Date / Time aspirin Allergy SHORTNESS Verified 01/11/17 20:39 OF BREATH crab Allergy SHORTNESS Verified 01/11/17 20:39 OF BREATH - Medications Medications: Current Medications Acetaminophen (Tylenol 325 Mg Supp) 325 mg RC Q6H PRN PRN Reason: TEMP>=99.5F Albuterol/Ipratropium (Duoneb 3 Mg/0.5 Mg (3 Ml) Ud) 3 ml IH Q6H [facility] Stop: 01/19/17 05:01 Last Admin: 01/13/17 07:45 Dose: 3 ml Acetaminophen (Ofirmev) 100 mls @ 400 mls/hr IVPB Q6H PRN PRN Reason: Fever >100.4 F Stop: 01/13/17 23:01 Sodium Chloride (Sodium Chloride 0.9%) 1,000 mls @ 60 mls/hr IV .[id number] [facility] Stop: 01/19/17 14:19 Last Admin: 01/12/17 23:15 Dose: 60 mls/hr Levetiracetam (Keppra 500mg Ivpb) 100 mls @ 200 mls/hr IVPB Q12 [facility] Last Admin: 01/13/17 10:42 Dose: 200 mls/hr Aztreonam (Azactam 1 Gm) 100 mls @ 100 mls/hr IVPB Q8 [facility] PRN Reason: Protocol Stop: 01/18/17 08:46 Last Admin: 01/13/17 10:42 Dose: 100 mls/hr Insulin Human Lispro (Humalog Med) 0 units SC Q6H [facility] Last Admin: 01/13/17 05:36 Dose: 1 units Ketorolac Tromethamine (Toradol) 30 mg IVP Q6H PRN PRN Reason: Pain, moderate (4-7) Stop: 01/13/17 22:53 Labetalol HCl (Trandate) 10 mg IV Q2H PRN PRN Reason: Systolic Blood Pressure Last Admin: 01/12/17 04:16 Dose: 10 mg Ondansetron HCl (Zofran Inj) 4 mg IVP Q6H PRN PRN Reason: Nausea/Vomiting Pantoprazole Sodium (Protonix Inj) 40 mg IVP Q12 [facility] Last Admin: 01/13/17 10:41 Dose: 40 mg Physical Exam - Constitutional Appears: Non-toxic, No Acute Distress - Head Exam Head Exam: NORMAL INSPECTION - ENT Exam ENT Exam: Mucous Membranes Moist - Neck Exam Neck exam: Negative for: Lymphadenopathy, Meningismus - Respiratory Exam Respiratory Exam: Decreased Breath Sounds - Cardiovascular Exam Cardiovascular Exam: +S1, +S2 - GI/Abdominal Exam GI & Abdominal Exam: Soft. absent: Tenderness Results - Vital Signs Recent Vital Signs: Last Vital Signs Temp 98.4 F 01/13/17 08:00 Pulse 113 H 01/13/17 11:04 Resp 27 H 01/13/17 11:04 BP 133/94 H 01/13/17 11:00 Pulse Ox 97 01/13/17 11:00 - Labs Result Diagrams: 01/13/17 05:00 01/13/17 05:00 Labs: Laboratory Results - last 24 hr 01/13/17 05:00 WBC 18.1 H D RBC 5.09 Hgb 15.5 Hct 44.5 MCV 87.4 MCH 30.5 MCHC 34.8 RDW 12.6 Plt Count 277 MPV 9.9 Gran # 14.50 H Neutrophils % (Manual) 80 H Band Neutrophils % 8 H Lymphocytes % (Manual) 8 L Monocytes % (Manual) 4 Platelet Evaluation Normal Sodium 140 Potassium 3.8 Chloride 101 Carbon Dioxide 28 Anion Gap 15 BUN 18 Creatinine 0.9 Est GFR ( Amer) > 60 Est GFR (Non-Af Amer) > 60 Random Glucose 156 H Calcium 8.9 Phosphorus 2.7 Magnesium 2.0 Total Bilirubin 0.6 Direct Bilirubin 0.5 H AST 31 ALT 41 Alkaline Phosphatase 66 Troponin I < 0.01 Total Protein 8.0 Albumin 4.0 Globulin 3.9 Albumin/Globulin Ratio 1.0 L Assessment & Plan - Assessment and Plan (Free Text) Plan: Assessment Systemic Inflammatory Response Syndrome (leukocytosis and tachycardia), consider acute stress response to acute left basal ganglia hemorrhage, R/O sepsis source to be determined HTN DM dyslipidemia Plan Started patient on one dose of IV Vancomycin and started Aztreonam pending blood cx, urine cx, PCT, CXR Will monitor clinically and trend WBC count
--- NOTE | 2017-01-13 16:47 | CARD ---
APPROVED REPORT EKG Measurement Heart [id number] OR 130P59 [id number] <Conclusion> Normal sinus rhythm Nonspecific ST and T wave abnormality Prolonged QT Abnormal ECG
[2017-01-13] MEDS: Sodium Chloride 0.9% 1,000 ML IV SCH (20:37)
[2017-01-14] MEDS: Albuterol-Ipratrop 3 mg / 0.5 (3 ml) UD IH SCH ×7 (02:48→19:54)
[2017-01-14] MEDS: Aztreonam 1 Gm in NS 100mL 100 ML IVPB SCH ×3 (05:36→21:25)
[2017-01-14 05:42] LABS: ADD MANUAL DIFF? NO
[2017-01-14 05:44] LABS: BASO # 0.05 K/mm3 (0.0-2.0); BASO % 0.3 % (0.0-3.0); EOS % 0.1 % (1.5-5.0); GRAN # 10.73 (1.4-6.5); GRAN % 67.9 % (50.0-68.0); HEMATOCRIT 46.3 % (42.0-52.0); LYMPH % 18.9 % (22.0-35.0); MEAN CELL VOLUME 87.4 fL (80.0-105.0); MEAN CORPUSCULAR HEMOGLOBIN 30.4 pg (25.0-35.0); MEAN CORPUSCULAR HGB CONC 34.8 g/dl (31.0-37.0); MEAN PLATELET VOLUME 9.5 fl (7.0-11.0); MONO % 12.8 % (1.0-6.0); PLATELET COUNT 280 10^3/uL (120.0-450.0); RED CELL DISTRIBUTION WIDTH 12.8 % (11.5-14.5); WHITE BLOOD COUNT 15.8 10^3/ul (4.5-11.0)
[2017-01-14 06:00] LABS: ALKALINE PHOSPHATASE 69 U/L (38-133); ALT/SGPT 42 U/L (7-56); AST/SGOT 38 U/L (15-59); BILIRUBIN,DIRECT 0.6 mg/dL (0.0-0.4); BILIRUBIN,TOTAL 0.6 mg/dL (0.2-1.3); BLOOD UREA NITROGEN 18 mg/dL (7-21); CALCIUM 8.6 mg/dL (8.4-10.5); CARBON DIOXIDE 28 mmol/L (21-33); CHLORIDE 101 mmol/L (95-110); GFR AFRICAN-AMERICAN > 60; GLUCOSE,RANDOM 113 mg/dL (70-110); MAGNESIUM 2.1 mg/dL (1.7-2.2); PHOSPHOROUS 2.8 mg/dL (2.5-4.5); POTASSIUM 3.5 mmol/L (3.6-5.0); SODIUM 139 mmol/L (132-148); TOTAL PROTEIN 7.9 g/dL (5.8-8.3)
[2017-01-14] MEDS: Insulin Lispro (humaLOG) MEDIUM Coverage SC SCH ×4 (06:30→23:43)
[2017-01-14] MEDS: Sodium Chloride 0.9% 1,000 ML IV SCH ×2 (07:46→07:47)
[2017-01-14] MEDS: Potassium Chloride 20 mEq 100 ML IVPB SCH ×2 (08:08→14:00)
[2017-01-14] MEDS: levETIRAcetam 500mg IVPB 100 ML IVPB SCH ×2 (10:07→21:25)
--- NOTE | 2017-01-14 10:11 | CON ---
DATE: 01/14/2017 HISTORY OF PRESENT ILLNESS: The patient is a 61-year-old male who presented with new neurologic defi cits and found to have an intracerebral bleed. The patient evaluated by neurosurgeon and felt that no surgery was necessary. PAST MEDICAL HISTORY: Includes hypertension and diabetes mellitus. According to the , the patie nt was evaluated by a sap project manager with a stress test in the past and has been unremarkable. The pat ient is free of cardiac symptoms. The patient has had no previous myocardial infarction, no documented coronary artery disease. SOCIAL HISTORY: The patient does not smoke and does not drink. REVIEW OF SYSTEMS: A 14-point review of systems was reviewed. No cardiac symptomatology was noted. PHYSICAL EXAMINATION: GENERAL: The patient is in bed, lethargic this morning. VITAL SIGNS: Blood pressure is 146 systolic, the heart rate is 100-110, sinus tachycardia. NECK: Negative JVD. LUNGS: Decreased breath sounds without rales. HEART: Reveals S1, S2. EXTREMITIES: Without edema. EKG shows no acute changes. LABORATORY DATA: Glucose is 144, potassium is 3.5. Troponin is negative x 1. The hemoglobin is 16. 1 with a white count that is elevated. Echocardiogram was performed which revealed normal LV systolic function, chamber size is unremarkable . IMPRESSION: 1. Intracerebral bleed. 2. Lethargy. 3. Hypertension. 4. Diabetes mellitus. PLAN: Given these findings, we will start the patient on Lopressor 25 b.i.d. to help control the hea rt rate and lower his blood pressure. Continued physical therapy would be appropriate. Dwayne Kendrick MD cc: [id number] TT: 01/14/2017 10:11:11 Confirmation # [id number] Dictation # [id number] charles
--- NOTE | 2017-01-14 10:23 | PN ---
DATE: 01/14/2017 The patient is seen in room ICU, bed 1. The patient is lying in the bed. The patient's is at bedside. The patient is more awake, more alert, more responsive. The patient is attempting to communicate. The patient is able to say his name. The patient does have expressive, some limitations with talking. Overnight nurse's notes were reviewed. PHYSICAL EXAMINATION: VITAL SIGNS: T-max, patient is afebrile. Telemetry shows sinus tachycardia at 110, 108, , 113. Respiration in high 20s per minute. Blood pressure 131/ 80, 135/82, 140/97. O2 sat, intermittently patient drops his O2 sat to 88%, average O2 sat is 97%-96%. INTAKE AND OUTPUT: Intake is 1140, output is 200, which does not appear to be correct. HEAD: Normocephalic, atraumatic. HEENT: Shows pink conjunctivae. No oropharyngeal lesion. Positive facial asymmetry. Positive tongue deviation to the right. Positive right eyelid droop. NECK: Questionable soft carotid bruit. CHEST: Kyphosis. Positive rhonchi upper lung stewart anteriorly. CARDIOVASCULAR: Shows S1, S2, regular rhythm. ABDOMEN: Protuberant, positive bowel sounds. GENITALIA: Male. RECTAL: Deferred. EXTREMITIES: Shows no pitting edema, no calf tenderness, no Homans' sign. Positive SCDs. Positive weakness of the right upper extremity and right lower extremity. Left upper and lower extremity is 5/5. PSYCHIATRIC: Not applicable. MUSCULOSKELETAL: Body mass index is 26. VASCULAR: Palpable pulses. DIAGNOSTICS: 01/14, WBC count 15.8, hemoglobin and hematocrit 16.1 and 46.3, platelets 280. Sodium 139, potassium 3.5, chloride 101, CO2 28, anion gap 14, BUN 18, creatinine 0.9, GFR greater than 60, glucose 114, calcium 8.6, phosphorus 2.8, magnesium 2.1. LFTs are normal. MRA non-detected. Blood type A positive. The patient's chest x-ray from 01/13, no active disease. IMPRESSION AND PLAN: 1. Acute left basal ganglia and internal capsule intracerebral bleed and hemorrhage with right hemiplegia. 2. Expressive and receptive aphasia. 3. Moderate to severe oropharyngeal dysphagia with risk for aspiration. 4. Possible feeding dysfunction and swallowing dysfunction. 5. Hypertension. 6. Tachycardia. 7. Tachypnea. 8. Episodic hypoxemia. 9. History of sleep apnea. 10. Leukocytosis with granulocytosis and bandemia. 11. Hypokalemia. 12. Hypertriglyceridemia. 13. Hypovitaminosis D. 14. Type 2 diabetes mellitus with hemoglobin A1c of 6.7. 15. Systemic inflammatory response syndrome with leukocytosis, granulocytosis, bandemia and tachycardia versus acute stress reaction. 16. Right facial droop. 17. Moderate to severe oropharyngeal dysphagia and receptive and expressive aphasia. 18. History of hypertension, history of dyslipidemia. 19. Acute left basal ganglia and abbott radiata intracerebral bleed, probably secondary to hypertensive urgency. 1. Acute left basal ganglia and internal capsule intracerebral bleed and hemorrhage with right hemiplegia. 2. Expressive aphasia with possible swallowing and feeding dysfunction. 3. Hypertension. 4. Tachycardia. 5. Questionable systemic inflammatory response syndrome with tachycardia, leukocytosis, bandemia. 6. History of hypertension, dyslipidemia, type 2 diabetes. 7. History of sleep apnea. 8. Morbid obesity with elevated body mass index of 26. 9. Sleep apnea. 10. Leukocytosis, granulocytosis and bandemia. 11. Type 2 diabetes mellitus with hemoglobin A1c of 6.7. 12. Hypovitaminosis D. 13. History of hypothyroidism. 14. Hypovitaminosis D. 15. Left basal ganglia internal capsule hemorrhage with greater degree and increasing edema and mass effect on the left hemisphere related to the acute parenchymal hemorrhage. 16. Ventricular asymmetry related to edema in the left cerebral hemisphere. 17. Left frontotemporal slowing without epileptiform activity. 18. Questionable systemic inflammatory response syndrome. 19. Hypokalemia. 20. Expressive aphasia and right-sided facial droop. 21. Hypovitaminosis D. 22. Hypertriglyceridemia. 23. Left ventricular ejection fraction of 53%. 24. Grade I abnormal relaxation pattern. 25. Gait dysfunction secondary to right hemiplegia. 26. Acute left basal ganglia and abbott radiata intracerebral bleed and hemorrhage secondary to hypertensive urgency. 27. History of sleep apnea. 18. mild receptive and expressive aphasia with moderate to severe oropharyngeal dysphagia. 1. Acute left basal ganglia bleed and hemorrhage without any midline shift or basilar herniation at present. 2. Hypertension. 3. Tachycardia. 4. Hypokalemia. 5. Type 2 non-insulin requiring diabetes mellitus. 6. Hypertriglyceridemia. 7. Expressive aphasia with right-sided facial droop and right hemiparesis and hemiplegia. 8. Gait dysfunction. 9. History of sleep apnea. 10. History of hypertension, diabetes mellitus and hypercholesterolemia. 11. Sinus tachycardia. 12. Hypokalemia. 13. Hypertension. 14. Hypertriglyceridemia. 15. Granulocytosis. 16. Left axis deviation. 17. Sinus tachycardia. 18. Acute left basal ganglia hemorrhage and bleeding 3.2 x 2.2 cm involving basal ganglia and left external capsule. 19. Chronic paranasal sinusitis. 20. Right hemiparesis and hemiplegia. 21. Expressive aphasia. 22. History of sleep apnea. 1. Acute left basal ganglia bleed and hemorrhage without any midline shift or basilar herniation. 2. History of hypertension, diabetes mellitus, dyslipidemia. 3. Tachycardia. 4. Hypertension. 5. Hypokalemia. 6. Hyperglycemia. 7. Hypertriglyceridemia. 8. A-positive blood type. 9. Questionable cardiomegaly. 10. Sudden onset of slurred speech and right-sided facial droop and right- sided weakness, and history of headache for the last few days. 11. Hypokalemia. 12. Sinus tachycardia. 13. Left axis deviation. 1. Moderate to severe oropharyngeal dysphagia with risk of aspiration. 2. Receptive and expressive aphasia. The patient seen by neurology, neurosurgery, infectious disease. PLAN: At this time, patient has been ordered serial labs. Blood and urine cultures are pending. CURRENT CONSULTATIONS: 1. Cardiology. 2. Infectious disease. 3. Neurology. 4. Neurosurgery. CURRENT MEDICATIONS: The patient started on Azactam 1 g IV q. 8, DuoNeb nebulizer every 6 hours, Humalog medium dose sliding scale coverage q. 6, Keppra 500 IV q. 12, Lopressor 25 mg p.o. twice daily ordered by cardiology, K riders ordered today x 2, Protonix 40 IV q. 12 for DVT prophylaxis, IV 0.9 normal saline at 60 mL an hour, Trandate 10 mg IV q. 2 p.r.n., Tylenol suppository for temperature, Zofran 4 mg IV q. 6 p.r.n. The patient is on CPAP pressure 12, FiO2 of 28. The patient is ordered fingerstick blood sugar q. 6 hours. Head of the bed elevation at 30 degrees, neuro checks, seizure precautions, suction the airway, MARQUES stockings, SCDs, occupational and physical therapy, speech therapy, swallowing evaluation ordered. The patient's condition and diagnosis discussed and explained to the patient's at length and all questions and concerns answered. Dictated and electronically signed, not read. Milton Rodas MD cc: [id number] TT: 01/14/2017 10:22:44 Confirmation # [id number] Dictation # [id number] en MTDD
--- NOTE | 2017-01-14 13:45 | MRI ---
PROCEDURE: MRI BRAIN WITHOUT CONTRAST HISTORY: ICB COMPARISON: None. TECHNIQUE: Multiplanar, multisequence MR images of the brain were obtained without intravenous contrast enhancement. FINDINGS: HEMORRHAGE: There is redemonstration of an approximately 4.0 x 3.2 cm T1 hyperintense and T2 hypo intense hematoma in the left insula extending into the external capsule and basal ganglia with moderate surrounding vasogenic edema and mild mass effect on the right internal capsule and right lateral ventricle. The hematoma extends into the left thalamus and the surrounding vasogenic edema extends into the left anterior and medial temporal lobes as well as left cerebral peduncle. There is also mass effect on the left thalamus and midbrain. Lateral component of the hematoma measuring 19.10 mm demonstrates different signal intensity than the main hematoma appearing hypointense on T1 and hyperintense on T2 weighted images. There is approximately 7 mm midline shift from left to right. There is no evidence of infra tentorial herniation. DWI: No evidence of an acute or early subacute infarction. BRAIN PARENCHYMA: There is no evidence of territorial infarction or abnormal extra-axial fluid collection. The midline sagittal structures are normal. VENTRICLES: The ventricles are normal in size, shape and configuration. CRANIUM: There is normal bone marrow signal pattern. ORBITS: Grossly unremarkable. PARANASAL SINUSES/MASTOIDS: There is moderate mucosal thickening in the ethmoid air cells and mild mucosal thickening in the paranasal sinuses. The mastoid air cells are predominantly clear. VASCULAR SYSTEM: There are normal signal voids in the larger intracranial arteries. OTHER FINDINGS: None. IMPRESSION: Interval expected evolution of known large early subacute left basal ganglia and insular hematoma with lateral component of the hematoma demonstrating signal intensity corresponding to acute hemorrhage. Moderate surrounding vasogenic edema and local regional mass effect with approximately 7 mm midline staffed from left to right. No evidence of entrapment of the ventricle or herniation. The location of the hemorrhage is suggestive of hypertensive etiology. Additional comments as described above.
--- NOTE | 2017-01-14 20:24 | CP.PCM.PN ---
Subjective - Date & Time of Evaluation Date of Evaluation: 01/14/17 Time of Evaluation: 08:10 - Subjective Subjective: Comfortable in bed, not in distress, no fevers. Objective - Vital Signs/Intake and Output Vital Signs (last 24 hours): Temp Pulse Resp BP Pulse Ox 97.7 F 80 26 H 138/84 98 01/14/17 04:00 01/14/17 18:00 01/14/17 18:00 01/14/17 18:00 01/14/17 18:00 - Medications Medications: Current Medications Acetaminophen (Tylenol 325 Mg Supp) 325 mg RC Q6H PRN PRN Reason: TEMP>=99.5F Albuterol/Ipratropium (Duoneb 3 Mg/0.5 Mg (3 Ml) Ud) 3 ml IH Q6H [facility] Stop: 01/19/17 05:01 Last Admin: 01/14/17 19:54 Dose: 3 ml Sodium Chloride (Sodium Chloride 0.9%) 1,000 mls @ 60 mls/hr IV .[id number] [facility] Stop: 01/19/17 14:19 Last Admin: 01/14/17 07:47 Dose: Not Given Levetiracetam (Keppra 500mg Ivpb) 100 mls @ 200 mls/hr IVPB Q12 [facility] Last Admin: 01/14/17 10:07 Dose: 200 mls/hr Aztreonam (Azactam 1 Gm) 100 mls @ 100 mls/hr IVPB Q8 [facility] PRN Reason: Protocol Stop: 01/18/17 08:46 Last Admin: 01/14/17 15:30 Dose: 100 mls/hr Insulin Human Lispro (Humalog Med) 0 units SC Q6H [facility] Last Admin: 01/14/17 18:09 Dose: Not Given Labetalol HCl (Trandate) 10 mg IV Q2H PRN PRN Reason: Systolic Blood Pressure Last Admin: 01/12/17 04:16 Dose: 10 mg Metoprolol Tartrate (Lopressor) 25 mg PO BID [facility] Last Admin: 01/14/17 18:10 Dose: 25 mg Ondansetron HCl (Zofran Inj) 4 mg IVP Q6H PRN PRN Reason: Nausea/Vomiting Pantoprazole Sodium (Protonix Inj) 40 mg IVP Q12 [facility] Last Admin: 01/14/17 10:07 Dose: 40 mg - Labs Labs: 01/14/17 05:00 01/14/17 05:00 PT 10.4 Seconds (9.9-11.8) 01/11/17 20:39 INR 0.96 (0.93-1.08) 01/11/17 20:39 APTT 28.0 Seconds (23.7-30.8) 01/11/17 20:39 - Constitutional Appears: Non-toxic, No Acute Distress - Head Exam Head Exam: NORMAL INSPECTION - ENT Exam ENT Exam: Mucous Membranes Moist - Neck Exam Neck Exam: absent: Lymphadenopathy, Meningismus - Respiratory Exam Respiratory Exam: Decreased Breath Sounds - Cardiovascular Exam Cardiovascular Exam: +S1, +S2 - GI/Abdominal Exam GI & Abdominal Exam: Soft. absent: Tenderness Assessment and Plan - Assessment and Plan (Free Text) Plan: Assessment Systemic Inflammatory Response Syndrome (leukocytosis and tachycardia), consider acute stress response to acute left basal ganglia hemorrhage, R/O sepsis source to be determined HTN DM dyslipidemia Plan continue Aztreonam day 2 pending final blood cx, urine cx; PCT is only 0.22, CXR is negative Will monitor clinically and trend WBC count
[2017-01-15] MEDS: Albuterol-Ipratrop 3 mg / 0.5 (3 ml) UD IH SCH ×4 (01:08→21:00)
[2017-01-15] MEDS: Aztreonam 1 Gm in NS 100mL 100 ML IVPB SCH ×3 (05:01→22:34)
[2017-01-15] MEDS: Insulin Lispro (humaLOG) MEDIUM Coverage SC SCH ×4 (05:04→22:33)
[2017-01-15 07:28] LABS: ADD MANUAL DIFF? NO
[2017-01-15 07:33] LABS: BASO % 0.7 % (0.0-3.0); EOS # 0.1 (0.0-0.7); EOS % 0.4 % (1.5-5.0); GRAN # 9.24 (1.4-6.5); GRAN % 68.1 % (50.0-68.0); HEMATOCRIT 48.2 % (42.0-52.0); LYMPH # 2.6 (1.2-3.4); LYMPH % 18.9 % (22.0-35.0); MEAN CELL VOLUME 88.1 fL (80.0-105.0); MEAN CORPUSCULAR HEMOGLOBIN 30.7 pg (25.0-35.0); MEAN CORPUSCULAR HGB CONC 34.9 g/dl (31.0-37.0); MONO # 1.6 (0.1-0.6); MONO % 11.9 % (1.0-6.0); PLATELET COUNT 280 10^3/uL (120.0-450.0); RED CELL DISTRIBUTION WIDTH 12.7 % (11.5-14.5); WHITE BLOOD COUNT 13.6 10^3/ul (4.5-11.0)
[2017-01-15 07:47] LABS: ALKALINE PHOSPHATASE 73 U/L (38-133); ALT/SGPT 45 U/L (7-56); AST/SGOT 44 U/L (15-59); BILIRUBIN,DIRECT 0.5 mg/dL (0.0-0.4); BILIRUBIN,TOTAL 0.9 mg/dL (0.2-1.3); BLOOD UREA NITROGEN 18 mg/dL (7-21); CALCIUM 8.5 mg/dL (8.4-10.5); CARBON DIOXIDE 24 mmol/L (21-33); CHLORIDE 100 mmol/L (95-110); GFR AFRICAN-AMERICAN > 60; GLUCOSE,RANDOM 116 mg/dL (70-110); MAGNESIUM 2.2 mg/dL (1.7-2.2); PHOSPHOROUS 3.2 mg/dL (2.5-4.5); POTASSIUM 3.6 mmol/L (3.6-5.0); SODIUM 137 mmol/L (132-148)
--- NOTE | 2017-01-15 10:13 | PN ---
DATE: 01/15/2017 The patient still with hemiparesis. He was out of bed yesterday. On physical exam, blood pressure is 106 systolic, heart rates is still tachycardic at 100-110. NECK: Negative JVD. LUNGS: No rales noted. HEART: Revealed S1, S2. EXTREMITIES: Without edema. LABORATORIES: BUN and creatinine are unremarkable. Potassium is 3.6, hemoglobin is 16, with a white count of 13.6. IMPRESSION: 1. Status post intracerebral bleed. 2. Cerebrovascular accident with right-sided hemiplegia. 3. Sinus tachycardia. 4. Relative hypotension. Given these findings, we will decrease his Lopressor to 12.5 b.i.d. Aggressive physical therapy is g oing to be necessary. Dwayne Kendrick MD cc: [id number] TT: 01/15/2017 10:13:01 Confirmation # [id number] Dictation # [id number] wilner
[2017-01-15] MEDS: levETIRAcetam 500mg IVPB 100 ML IVPB SCH ×2 (10:15→22:35)
[2017-01-15] MEDS ORDERED: Potassium Chloride 20 mEq 100 ML IVPB ONE (10:22)
[2017-01-15] MEDS: Sodium Chloride 0.9% 1,000 ML IV SCH (14:38)
--- NOTE | 2017-01-15 19:23 | PN ---
DATE: 01/15/2017 AGE: A 61-year-old man. CHIEF COMPLAINT: Follow up left basal ganglia hemorrhage. SUBJECTIVE: The patient seen and examined at bedside. The patient sitting up in chair. He still cevallos s expressive aphasia, right hemiplegia, and mild right facial droop. He follows simple commands. Hi s headache is much better. He has SIRS secondary to the hemorrhagic infarction. His MRI of the brai n showed interval expected evolution of a large early subacute left basal ganglia, and insular/abbott radiata hematoma, with lateral component of the hematoma demonstrating a single intensive acut e hemorrhage. There is mild mass effect; no herniation. Currently, his blood pressures are stable 1 . Initially it was very low. Medications have been adjusted. ALLERGIES: TO ASPIRIN AND CRAB. PAST MEDICAL HISTORY: Hypertension, diabetes mellitus type 2. FAMILY HISTORY: Multiple family members with diabetes. SOCIAL HISTORY: No illicit drug use, smoking, or ETOH abuse. MEDICATIONS: Reviewed via nurse's reconciliation sheet. REVIEW OF SYSTEMS: A 14-point review of systems negative, except as in HPI. PHYSICAL EXAMINATION: Temperature 98.5, pulse rate 83, blood pressure 130/82, respiratory rate of 20. GENERAL EXAMINATION: The patient is sitting up in bed in no acute distress. HENT: Atraumatic, normocephalic. PERRLA, extraocular muscles intact. NECK: Supple, no JVD, no adenopathy noted. LUNGS: Clear to auscultation. No adventitious sounds. ABDOMEN: Soft, nontender, nondistended. Bowel sounds present. EXTREMITIES: No clubbing, no cyanosis. Peripheral pulses 2+ felt bilaterally. NEUROLOGIC EXAMINATION: The patient is alert, oriented to person, place, and year. Has expressive a phasia, poor attention span. Cranial nerves II-XII are intact except for mild right facial droop. MOTOR EXAMINATION: Right hemiparesis, left side is intact. Toes are upgoing. SENSORY EXAMINATION: Decreased light touch and pinprick up the calves bilaterally. Decreased vibrat ion of the toes. DTRs 2+ and 1 at the ankles. COORDINATION: Cbsykm-fl-wyve intact. Difficulty on the right due to right hemiparesis from CVA. LABORATORIES: Sodium is 137, potassium 3.6, chloride of 100, carbon dioxide 24, BUN of 18, creatinin e 0.8. Random glucose 116. ASSESSMENT AND PLAN: This is a 61-year-old man with past medical history of hypertension, type 2 maxwell betes mellitus, who came in with headache, and elevated systolic and diastolic blood pressures, expre ssive aphasia and right facial droop, found to have an acute left basal ganglia and insular/abbott ra diata hemorrhage secondary to hypertensive urgency and uncontrolled risk factors. His EEG just showe d left frontotemporal lobe slowing consistent with underlying acute left basal ganglia hemorrhage. N o evidence of any epileptiform activity. MRI of the brain reviewed, which is consistent with his diagnosis. I recommend: 1. Avoid any antiplatelets, anticoagulation at least for now. Can restart aspirin for 4 weeks from t he acute onset of his hemorrhage in terms of 81 mg. 2. Continue with Keppra 500 mg, can take p.o.; if possible p.o. b.i.d. and can be tapered off on his discharge for seizure prophylaxis. 3. Needs physical, occupational, and speech therapy in the acute rehab. Thank you for this followup. Solo Hoffman MD cc: [id number] TT: 01/15/2017 19:22:35 Confirmation # [id number] Dictation # [id number] wilner
--- NOTE | 2017-01-15 23:43 | CP.PCM.PN ---
Subjective - Date & Time of Evaluation Date of Evaluation: 01/15/17 Time of Evaluation: 08:55 - Subjective Subjective: Comfortable in bed, not in distress, no fevers, no SOB, no cough. Objective - Vital Signs/Intake and Output Vital Signs (last 24 hours): Temp Pulse Resp BP Pulse Ox 98.5 F 83 20 130/82 97 01/15/17 18:00 01/15/17 18:00 01/15/17 18:00 01/15/17 18:00 01/15/17 09:00 - Medications Medications: Current Medications Acetaminophen (Tylenol 325 Mg Supp) 325 mg RC Q6H PRN PRN Reason: TEMP>=99.5F Albuterol/Ipratropium (Duoneb 3 Mg/0.5 Mg (3 Ml) Ud) 3 ml IH Q6H [facility] Stop: 01/19/17 05:01 Last Admin: 01/15/17 21:00 Dose: 3 ml Sodium Chloride (Sodium Chloride 0.9%) 1,000 mls @ 60 mls/hr IV .[id number] [facility] Stop: 01/19/17 14:19 Last Admin: 01/15/17 14:38 Dose: 60 mls/hr Levetiracetam (Keppra 500mg Ivpb) 100 mls @ 200 mls/hr IVPB Q12 [facility] Last Admin: 01/15/17 22:35 Dose: 200 mls/hr Insulin Human Lispro (Humalog Med) 0 units SC ACHS [facility] PRN Reason: Protocol Last Admin: 01/15/17 22:33 Dose: Not Given Labetalol HCl (Trandate) 10 mg IV Q2H PRN PRN Reason: Systolic Blood Pressure Last Admin: 01/12/17 04:16 Dose: 10 mg Metoprolol Tartrate (Lopressor) 12.5 mg PO BID [facility] Last Admin: 01/15/17 17:44 Dose: 12.5 mg Ondansetron HCl (Zofran Inj) 4 mg IVP Q6H PRN PRN Reason: Nausea/Vomiting Pantoprazole Sodium (Protonix Inj) 40 mg IVP Q12 [facility] Last Admin: 01/15/17 22:35 Dose: 40 mg - Labs Labs: 01/15/17 06:40 01/15/17 06:40 PT 10.4 Seconds (9.9-11.8) 01/11/17 20:39 INR 0.96 (0.93-1.08) 01/11/17 20:39 APTT 28.0 Seconds (23.7-30.8) 01/11/17 20:39 - Constitutional Appears: Non-toxic, No Acute Distress - Head Exam Head Exam: NORMAL INSPECTION - ENT Exam ENT Exam: Mucous Membranes Moist - Neck Exam Neck Exam: absent: Lymphadenopathy, Meningismus - Respiratory Exam Respiratory Exam: Decreased Breath Sounds - Cardiovascular Exam Cardiovascular Exam: +S1, +S2 - GI/Abdominal Exam GI & Abdominal Exam: Soft. absent: Tenderness Assessment and Plan - Assessment and Plan (Free Text) Plan: Assessment Systemic Inflammatory Response Syndrome (leukocytosis and tachycardia), consider acute stress response to acute left basal ganglia hemorrhage; no evidence of sepsis identified HTN DM dyslipidemia Plan will discontinue Aztreonam; blood cx negative; PCT is only 0.22, CXR is negative Will monitor clinically and trend WBC count
[2017-01-16] MEDS: Albuterol-Ipratrop 3 mg / 0.5 (3 ml) UD IH SCH ×4 (02:30→19:45)
[2017-01-16] MEDS: Sodium Chloride 0.9% 1,000 ML IV SCH ×2 (06:31→22:03)
[2017-01-16] MEDS: Insulin Lispro (humaLOG) MEDIUM Coverage SC SCH ×4 (07:42→21:14)
[2017-01-16 08:18] LABS: ADD MANUAL DIFF? NO
[2017-01-16 08:24] LABS: BASO # 0.05 K/mm3 (0.0-2.0); BASO % 0.4 % (0.0-3.0); EOS # 0.1 (0.0-0.7); EOS % 0.9 % (1.5-5.0); GRAN # 7.37 (1.4-6.5); GRAN % 65.9 % (50.0-68.0); HEMATOCRIT 46.2 % (42.0-52.0); LYMPH # 2.8 (1.2-3.4); MEAN CELL VOLUME 86.7 fL (80.0-105.0); MEAN CORPUSCULAR HEMOGLOBIN 30.2 pg (25.0-35.0); MEAN CORPUSCULAR HGB CONC 34.8 g/dl (31.0-37.0); MEAN PLATELET VOLUME 9.3 fl (7.0-11.0); MONO # 0.9 (0.1-0.6); MONO % 7.8 % (1.0-6.0); PLATELET COUNT 290 10^3/uL (120.0-450.0); RED CELL DISTRIBUTION WIDTH 12.6 % (11.5-14.5); WHITE BLOOD COUNT 11.2 10^3/ul (4.5-11.0)
[2017-01-16 08:33] LABS: ALB/GLOB RATIO 0.9 (1.1-1.8); ALKALINE PHOSPHATASE 72 U/L (38-133); ALT/SGPT 44 U/L (7-56); AST/SGOT 42 U/L (15-59); BILIRUBIN,DIRECT 0.6 mg/dL (0.0-0.4); BILIRUBIN,TOTAL 1.2 mg/dL (0.2-1.3); BLOOD UREA NITROGEN 17 mg/dL (7-21); CALCIUM 8.5 mg/dL (8.4-10.5); CARBON DIOXIDE 25 mmol/L (21-33); CHLORIDE 103 mmol/L (98-107); GFR AFRICAN-AMERICAN > 60; GLUCOSE,RANDOM 115 mg/dL (70-110); MAGNESIUM 2.3 mg/dL (1.7-2.2); POTASSIUM 3.8 mmol/L (3.6-5.0); SODIUM 137 mmol/L (132-148); TOTAL PROTEIN 8.3 g/dL (5.8-8.3)
[2017-01-16] MEDS: levETIRAcetam 500mg IVPB 100 ML IVPB SCH ×2 (10:08→21:57)
--- NOTE | 2017-01-16 13:42 | CP.PCM.PN ---
Subjective - Date & Time of Evaluation Date of Evaluation: 01/16/17 Time of Evaluation: 13:10 - Subjective Subjective: Comfortable in bed, not in distress, no fevers overnight, feeling a little better, no nausea, no diarrhea, no SOB, no cough, no dysuria. Objective - Vital Signs/Intake and Output Vital Signs (last 24 hours): Temp Pulse Resp BP Pulse Ox 98.9 F 96 H 20 118/82 99 01/16/17 11:47 01/16/17 11:47 01/16/17 11:47 01/16/17 11:47 01/16/17 08:00 - Medications Medications: Current Medications Acetaminophen (Tylenol 325 Mg Supp) 325 mg RC Q6H PRN PRN Reason: TEMP>=99.5F Albuterol/Ipratropium (Duoneb 3 Mg/0.5 Mg (3 Ml) Ud) 3 ml IH Q6H [facility] Stop: 01/19/17 05:01 Last Admin: 01/16/17 13:24 Dose: 3 ml Sodium Chloride (Sodium Chloride 0.9%) 1,000 mls @ 60 mls/hr IV .[id number] [facility] Stop: 01/19/17 14:19 Last Admin: 01/16/17 06:31 Dose: 60 mls/hr Levetiracetam (Keppra 500mg Ivpb) 100 mls @ 200 mls/hr IVPB Q12 [facility] Last Admin: 01/16/17 10:08 Dose: 200 mls/hr Insulin Human Lispro (Humalog Med) 0 units SC ACHS [facility] PRN Reason: Protocol Last Admin: 01/16/17 11:35 Dose: Not Given Labetalol HCl (Trandate) 10 mg IV Q2H PRN PRN Reason: Systolic Blood Pressure Last Admin: 01/12/17 04:16 Dose: 10 mg Metoprolol Tartrate (Lopressor) 12.5 mg PO BID [facility] Last Admin: 01/16/17 10:07 Dose: 12.5 mg Ondansetron HCl (Zofran Inj) 4 mg IVP Q6H PRN PRN Reason: Nausea/Vomiting Pantoprazole Sodium (Protonix Inj) 40 mg IVP Q12 [facility] Last Admin: 01/16/17 10:08 Dose: 40 mg - Labs Labs: 01/16/17 08:17 01/16/17 08:17 PT 10.4 Seconds (9.9-11.8) 01/11/17 20:39 INR 0.96 (0.93-1.08) 01/11/17 20:39 APTT 28.0 Seconds (23.7-30.8) 01/11/17 20:39 - Constitutional Appears: Non-toxic, No Acute Distress - Head Exam Head Exam: NORMAL INSPECTION - ENT Exam ENT Exam: Mucous Membranes Moist - Neck Exam Neck Exam: absent: Lymphadenopathy, Meningismus - Respiratory Exam Respiratory Exam: Decreased Breath Sounds - Cardiovascular Exam Cardiovascular Exam: +S1, +S2 - GI/Abdominal Exam GI & Abdominal Exam: Soft. absent: Tenderness - Neurological Exam Additional comments: right facial droop noted Assessment and Plan - Assessment and Plan (Free Text) Plan: Assessment Systemic Inflammatory Response Syndrome (leukocytosis and tachycardia), consider acute stress response to acute left basal ganglia hemorrhage; no evidence of sepsis identified HTN DM dyslipidemia Plan blood cx negative; PCT is only 0.22, CXR is negative, WBC count continues to trend downward - will continue to monitor off antibiotics since he is at risk for nosocomial infections Will monitor clinically and trend WBC count
--- NOTE | 2017-01-16 15:07 | CP.PCM.PN ---
Subjective - Date & Time of Evaluation Date of Evaluation: 01/16/17 Time of Evaluation: 14:20 - Subjective Subjective: Patient: DEBORAH GORDON [facility] #:[id number] Unit: [id number] : 1955 Loc: [facility] Room/Bed: 277-02 Age/Sex: 61 / M ADM Status: ADM IN ADM Date: DIS Date: Progress note: DATE: 01/16/2017 AGE: A 61-year-old man. CHIEF COMPLAINT: Follow up left basal ganglia hemorrhage. SUBJECTIVE: The patient seen and examined at bedside. The patient sitting up in chair. He still has expressive aphasia, right hemiplegia, and mild right facial droop. He follows simple commands. His headache is much better. He has SIRS secondary to the hemorrhagic infarction. His MRI of the brain showed interval expected evolution of a large early subacute left basal ganglia, and insular/abbott radiata hematoma. There is mild mass effect; no herniation. Currently, his blood pressures are stable. No acute events over night. ALLERGIES: TO ASPIRIN AND CRAB. PAST MEDICAL HISTORY: Hypertension, diabetes mellitus type 2. FAMILY HISTORY: Multiple family members with diabetes. SOCIAL HISTORY: No illicit drug use, smoking, or ETOH abuse. MEDICATIONS: Reviewed via nurse's reconciliation sheet. REVIEW OF SYSTEMS: A 14-point review of systems negative, except as in HPI. PHYSICAL EXAMINATION: Vitals: Reviewed. GENERAL EXAMINATION: The patient is sitting up in bed in no acute distress. HENT: Atraumatic, normocephalic. PERRLA, extraocular muscles intact. NECK: Supple, no JVD, no adenopathy noted. LUNGS: Clear to auscultation. No adventitious sounds. ABDOMEN: Soft, nontender, nondistended. Bowel sounds present. EXTREMITIES: No clubbing, no cyanosis. Peripheral pulses 2+ felt bilaterally. NEUROLOGIC EXAMINATION: The patient is alert, oriented to person, place, and year. Has expressive aphasia, poor attention span. Cranial nerves II-XII are intact except for mild right facial droop. MOTOR EXAMINATION: Right hemiparesis, left side is intact. Toes are upgoing. SENSORY EXAMINATION: Decreased light touch and pinprick up the calves bilaterally. Decreased vibration of the toes. DTRs 2+ and 1 at the ankles. COORDINATION: Vrvenw-qj-dmll intact. Difficulty on the right due to right hemiparesis from CVA. LABORATORIES: Reviewed. ASSESSMENT AND PLAN: This is a 61-year-old man with past medical history of hypertension, type 2 diabetes mellitus, who came in with headache, and elevated systolic and diastolic blood pressures, expressive aphasia and right facial droop, found to have an acute left basal ganglia and insular/abbott radiata hemorrhage secondary to hypertensive urgency and uncontrolled risk factors. His EEG just showed left frontotemporal lobe slowing consistent with underlying acute left basal ganglia hemorrhage. No evidence of any epileptiform activity. MRI of the brain reviewed, which is consistent with his diagnosis. I recommend: 1. Avoid any antiplatelets, anticoagulation at least for now. Can restart aspirin for 4 weeks from the acute onset of his hemorrhage in terms of 81 mg. 2. Continue with Keppra 500 mg, can take p.o.; if possible p.o. b.i.d. and can be tapered off on his discharge for seizure prophylaxis. 3. Needs physical, occupational, and speech therapy in the acute rehab. Thank you for this followup. Solo Hoffman MD Objective - Vital Signs/Intake and Output Vital Signs (last 24 hours): Temp Pulse Resp BP Pulse Ox 98.9 F 90 20 118/82 99 01/16/17 11:47 01/16/17 14:00 01/16/17 11:47 01/16/17 11:47 01/16/17 08:00 - Medications Medications: Current Medications Acetaminophen (Tylenol 325 Mg Supp) 325 mg RC Q6H PRN PRN Reason: TEMP>=99.5F Albuterol/Ipratropium (Duoneb 3 Mg/0.5 Mg (3 Ml) Ud) 3 ml IH Q6H [facility] Stop: 01/19/17 05:01 Last Admin: 01/16/17 13:24 Dose: 3 ml Sodium Chloride (Sodium Chloride 0.9%) 1,000 mls @ 60 mls/hr IV .[id number] [facility] Stop: 01/19/17 14:19 Last Admin: 01/16/17 06:31 Dose: 60 mls/hr Levetiracetam (Keppra 500mg Ivpb) 100 mls @ 200 mls/hr IVPB Q12 [facility] Last Admin: 01/16/17 10:08 Dose: 200 mls/hr Insulin Human Lispro (Humalog Med) 0 units SC ACHS [facility] PRN Reason: Protocol Last Admin: 01/16/17 11:35 Dose: Not Given Labetalol HCl (Trandate) 10 mg IV Q2H PRN PRN Reason: Systolic Blood Pressure Last Admin: 01/12/17 04:16 Dose: 10 mg Metoprolol Tartrate (Lopressor) 12.5 mg PO BID [facility] Last Admin: 01/16/17 10:07 Dose: 12.5 mg Ondansetron HCl (Zofran Inj) 4 mg IVP Q6H PRN PRN Reason: Nausea/Vomiting Pantoprazole Sodium (Protonix Inj) 40 mg IVP Q12 [facility] Last Admin: 01/16/17 10:08 Dose: 40 mg - Labs Labs: 01/16/17 08:17 01/16/17 08:17 PT 10.4 Seconds (9.9-11.8) 01/11/17 20:39 INR 0.96 (0.93-1.08) 01/11/17 20:39 APTT 28.0 Seconds (23.7-30.8) 01/11/17 20:39
--- NOTE | 2017-01-16 16:14 | PN ---
DATE: 01/16/2017 The patient is seen in room 277, bed 2. The patient is lying in the bed. The patient is alert, awake, responsive, positive right-sided weakness and hemiplegia noted. The patient's overnight nurses' notes were reviewed. The patient's appetite was documented by the nurses to be poor. PHYSICAL EXAMINATION: VITAL SIGNS: The patient's telemetry shows sinus rhythm, intermittent sinus tachycardia. Blood pressure is 132/75, 118/82 and 139/92, respiration 18, O2 sat 99%, T-max is 98.9, O2 sat 99% with nasal cannula. The patient is incontinent. INTAKE AND OUTPUT: Could not be monitored. HEAD: Normocephalic, atraumatic. HEENT: Shows positive right-sided facial asymmetry, positive nasolabial facial asymmetry. Positive tongue deviation. NECK: No neck rigidity. CHEST: Kyphosis. LUNGS: Shows occasional rhonchi upper lung stewart. CARDIOVASCULAR: Shows S1, S2, regular rhythm. ABDOMEN: Soft, protuberant, positive bowel sounds. GENITALIA: Male. RECTAL: Deferred. EXTREMITIES: Shows no pitting edema, no calf tenderness, no Homans' sign. Positive weakness and hemiplegia of the right upper and lower extremity. Left upper and lower extremity is 5/5. MUSCULOSKELETAL: Shows a body mass index of greater than 27. NEUROLOGIC: Cranial nerves II-XII limited. Gait examination not tested. The patient is mostly lying in the bed when seen. The patient is able to follow simple commands. The patient is attempting to speak but words are not clear. DIAGNOSTICS: On 01/16: WBC 11.2, hemoglobin and hematocrit 16.1 and 46.2, platelet 290. Sodium 137, potassium 3.8, chloride 103, CO2 of 25, anion gap 13 , BUN 17, creatinine 0.9, GFR greater than 60, glucose 152, calcium 8.5, magnesium 2.3. LFTs are normal. Blood cultures are negative. The patient's MRI of the brain was noted. IMPRESSION AND PLAN: 1. Acute left basal ganglia and internal capsule intracerebral bleed and hemorrhage with right hemiplegia with expressive and receptive aphasia. 2. Rtrejtdt-pp-ulieml oropharyngeal dysphagia with risk for aspiration. 3. Possible feeding dysfunction and swallowing dysfunction. 4. History of hypertension and diabetes mellitus, history of obesity and dyslipidemia. 5. Tachycardia. 6. Episodic hypoxemia. 7. Leukocytosis with granulocytosis and bandemia. 8. Type 2 diabetes mellitus. 9. Hypovitaminosis D. 10. Hypertriglyceridemia. 11. Systemic inflammatory response syndrome with acute stress response secondary to acute left basal ganglia hemorrhage. 12. Systemic inflammatory response syndrome. 13. Right facial droop. 14. Acute left basal ganglia and and abbott radiata intracerebral bleed secondary to hypertensive urgency. 15. Left frontotemporal lobe slowing consistent with acute left basal ganglia bleed. 16. Left insular external capsular basal ganglia, intracerebral bleed with vasogenic edema and mass effect on the right internal capsule and the right lateral ventricle with hemorrhage extending into the left thalamus with surrounding vasogenic edema extending into the left anterior and medial temporal lobe and left cerebral peduncle with mass effect on the left thalamus and mid-brain with . 17. Ethmoid and paranasal sinus mucosal thickening. 18. Interval of evolution of the large early subacute left basal ganglia and insular hemorrhage with lateral component of the hemorrhage demonstrating signal intensity corresponding to acute hemorrhage with moderate vasogenic and surrounding vasogenic edema with regional mass effect with 7 mm midline shift from left to right without evidence of entrapment suggestive of hypertensive urgency. 1. Acute left basal ganglia and internal capsule intracerebral bleed and hemorrhage with right hemiplegia. 2. Expressive and receptive aphasia. 3. Moderate to severe oropharyngeal dysphagia with risk for aspiration. 4. Possible feeding dysfunction and swallowing dysfunction. 5. Hypertension. 6. Tachycardia. 7. Tachypnea. 8. Episodic hypoxemia. 9. History of sleep apnea. 10. Leukocytosis with granulocytosis and bandemia. 11. Hypokalemia. 12. Hypertriglyceridemia. 13. Hypovitaminosis D. 14. Type 2 diabetes mellitus with hemoglobin A1c of 6.7. 15. Systemic inflammatory response syndrome with leukocytosis, granulocytosis, bandemia and tachycardia versus acute stress reaction. 16. Right facial droop. 17. Moderate to severe oropharyngeal dysphagia and receptive and expressive aphasia. 18. History of hypertension, history of dyslipidemia. 19. Acute left basal ganglia and abbott radiata intracerebral bleed, probably secondary to hypertensive urgency. 1. Acute left basal ganglia and internal capsule intracerebral bleed and hemorrhage with right hemiplegia. 2. Expressive aphasia with possible swallowing and feeding dysfunction. 3. Hypertension. 4. Tachycardia. 5. Questionable systemic inflammatory response syndrome with tachycardia, leukocytosis, bandemia. 6. History of hypertension, dyslipidemia, type 2 diabetes. 7. History of sleep apnea. 8. Morbid obesity with elevated body mass index of 26. 9. Sleep apnea. 10. Leukocytosis, granulocytosis and bandemia. 11. Type 2 diabetes mellitus with hemoglobin A1c of 6.7. 12. Hypovitaminosis D. 13. History of hypothyroidism. 14. Hypovitaminosis D. 15. Left basal ganglia internal capsule hemorrhage with greater degree and increasing edema and mass effect on the left hemisphere related to the acute parenchymal hemorrhage. 16. Ventricular asymmetry related to edema in the left cerebral hemisphere. 17. Left frontotemporal slowing without epileptiform activity. 18. Questionable systemic inflammatory response syndrome. 19. Hypokalemia. 20. Expressive aphasia and right-sided facial droop. 21. Hypovitaminosis D. 22. Hypertriglyceridemia. 23. Left ventricular ejection fraction of 53%. 24. Grade I abnormal relaxation pattern. 25. Gait dysfunction secondary to right hemiplegia. 26. Acute left basal ganglia and abbott radiata intracerebral bleed and hemorrhage secondary to hypertensive urgency. 27. History of sleep apnea. 18. mild receptive and expressive aphasia with moderate to severe oropharyngeal dysphagia. 1. Acute left basal ganglia bleed and hemorrhage without any midline shift or basilar herniation at present. 2. Hypertension. 3. Tachycardia. 4. Hypokalemia. 5. Type 2 non-insulin requiring diabetes mellitus. 6. Hypertriglyceridemia. 7. Expressive aphasia with right-sided facial droop and right hemiparesis and hemiplegia. 8. Gait dysfunction. 9. History of sleep apnea. 10. History of hypertension, diabetes mellitus and hypercholesterolemia. 11. Sinus tachycardia. 12. Hypokalemia. 13. Hypertension. 14. Hypertriglyceridemia. 15. Granulocytosis. 16. Left axis deviation. 17. Sinus tachycardia. 18. Acute left basal ganglia hemorrhage and bleeding 3.2 x 2.2 cm involving basal ganglia and left external capsule. 19. Chronic paranasal sinusitis. 20. Right hemiparesis and hemiplegia. 21. Expressive aphasia. 22. History of sleep apnea. 1. Acute left basal ganglia bleed and hemorrhage without any midline shift or basilar herniation. 2. History of hypertension, diabetes mellitus, dyslipidemia. 3. Tachycardia. 4. Hypertension. 5. Hypokalemia. 6. Hyperglycemia. 7. Hypertriglyceridemia. 8. A-positive blood type. 9. Questionable cardiomegaly. 10. Sudden onset of slurred speech and right-sided facial droop and right- sided weakness, and history of headache for the last few days. 11. Hypokalemia. 12. Sinus tachycardia. 13. Left axis deviation. 1. Moderate to severe oropharyngeal dysphagia with risk of aspiration. 2. Receptive and expressive aphasia. PLAN: At this time, the patient's case is referred for addiction social worker and discharge planning. Do acute rehabilitation. The patient was seen by the physical therapist. Their recommendation is acute rehabilitation. CURRENT MEDICATIONS: 1. DuoNeb nebulizer every 6 hours. 2. Humalog medium dose sliding coverage before meals and at bedtime. 3. Keppra 500 mg IV q.12. 4. Lopressor 12.5 mg twice a day. 5. Protonix 40 mg IV q.12. 6. IV fluids 0.9 at 60 mL an hour. 7. Labetalol 10 mg IV q.2 p.r.n. 8. Tylenol 650 q.6 p.r.n. 9. Zofran 4 mg IV q.6 hours p.r.n. The patient has been ordered out of bed to chair, SCDs, MARQUES stockings, occupational therapy, physical therapy all ordered. Speech therapy, swallowing evaluation ordered. At present, the patient is presently off the Decadron. At present, the patient will be continued on the above therapeutic intervention. We are awaiting evaluation discharge for acute rehab. Dictated and electronically signed, not read. Milton Rodas MD cc: [id number] TT: 01/16/2017 16:14:19 Confirmation # [id number] Dictation # [id number] loc JORDAN
[2017-01-17] MEDS: Albuterol-Ipratrop 3 mg / 0.5 (3 ml) UD IH SCH ×5 (02:45→20:14)
[2017-01-17] MEDS: Insulin Lispro (humaLOG) MEDIUM Coverage SC SCH ×4 (08:20→22:18)
[2017-01-17] MEDS: levETIRAcetam 500mg IVPB 100 ML IVPB SCH ×2 (11:02→22:18)
--- NOTE | 2017-01-17 12:11 | CP.PCM.PN ---
Subjective - Date & Time of Evaluation Date of Evaluation: 01/17/17 Time of Evaluation: 11:20 - Subjective Subjective: Comfortable in bed, not in distress, no fevers overnight. Objective - Vital Signs/Intake and Output Vital Signs (last 24 hours): Temp Pulse Resp BP Pulse Ox 97.8 F 81 20 141/74 94 L 01/17/17 06:00 01/17/17 11:03 01/17/17 06:00 01/17/17 11:03 01/17/17 06:00 Intake and Output: 01/17/17 01/17/17 06:59 18:59 Intake Total 1200 Balance 1200 - Medications Medications: Current Medications Acetaminophen (Tylenol 325 Mg Supp) 325 mg RC Q6H PRN PRN Reason: TEMP>=99.5F Albuterol/Ipratropium (Duoneb 3 Mg/0.5 Mg (3 Ml) Ud) 3 ml IH Q6H [facility] Stop: 01/19/17 05:01 Last Admin: 01/17/17 08:00 Dose: 3 ml Sodium Chloride (Sodium Chloride 0.9%) 1,000 mls @ 60 mls/hr IV .[id number] [facility] Stop: 01/19/17 14:19 Last Admin: 01/16/17 22:03 Dose: 60 mls/hr Levetiracetam (Keppra 500mg Ivpb) 100 mls @ 200 mls/hr IVPB Q12 [facility] Last Admin: 01/17/17 11:02 Dose: 200 mls/hr Insulin Human Lispro (Humalog Med) 0 units SC ACHS [facility] PRN Reason: Protocol Last Admin: 01/17/17 08:20 Dose: Not Given Labetalol HCl (Trandate) 10 mg IV Q2H PRN PRN Reason: Systolic Blood Pressure Last Admin: 01/12/17 04:16 Dose: 10 mg Metoprolol Tartrate (Lopressor) 12.5 mg PO BID [facility] Last Admin: 01/17/17 11:03 Dose: 12.5 mg Ondansetron HCl (Zofran Inj) 4 mg IVP Q6H PRN PRN Reason: Nausea/Vomiting Pantoprazole Sodium (Protonix Inj) 40 mg IVP Q12 [facility] Last Admin: 01/17/17 10:50 Dose: 40 mg - Labs Labs: 01/16/17 08:17 04/08/17 08:17 PT 10.4 Seconds (9.9-11.8) 01/11/17 20:39 INR 0.96 (0.93-1.08) 01/11/17 20:39 APTT 28.0 Seconds (23.7-30.8) 01/11/17 20:39 - Constitutional Appears: Non-toxic, No Acute Distress - Head Exam Head Exam: NORMAL INSPECTION - ENT Exam ENT Exam: Mucous Membranes Moist Additional comments: right facial droop - Neck Exam Neck Exam: absent: Lymphadenopathy, Meningismus - Respiratory Exam Respiratory Exam: Decreased Breath Sounds - Cardiovascular Exam Cardiovascular Exam: +S1, +S2 - GI/Abdominal Exam GI & Abdominal Exam: Soft. absent: Tenderness Assessment and Plan - Assessment and Plan (Free Text) Plan: Assessment Systemic Inflammatory Response Syndrome (leukocytosis and tachycardia), consider acute stress response to acute left basal ganglia hemorrhage; no evidence of sepsis identified HTN DM dyslipidemia Plan blood cx negative; PCT is only 0.22, CXR is negative, WBC count continues to trend downward - will continue to monitor off antibiotics since he is at risk for hsopital-acquired infections Will monitor clinically and trend WBC count
--- NOTE | 2017-01-17 15:35 | PN ---
DATE: 01/17/2017 The patient is seen today in room 277, bed 2. [facility] The patient is being fed with assistance by the patient's . The patient slept without any adverse events. PHYSICAL EXAMINATION: VITAL SIGNS: T-max 98.4. Telemetry shows sinus rhythm, heart rate mostly in the high 80s to low 90s. Blood pressure 127/89, 141, 74, 135/71, respiration 20 , O2 sat averaging around mid to high 90s. Intake and output not documented. HEAD: Normocephalic, atraumatic. HEENT: Shows pink conjunctivae, anicteric sclerae. No oropharyngeal lesion. positive facial asymmetry. Positive tongue deviation to the right. NECK: No neck rigidity. No jugular venous distention. CHEST: Kyphosis. LUNGS: Shows occasional rhonchi upper lung stewart anteriorly. CARDIOVASCULAR: Shows S1, S2, regular rhythm. ABDOMEN: Protuberant, obese, positive bowel sounds. MUSCULOSKELETAL: Shows a body mass index of 27. NEUROLOGIC: Cranial nerves II-XII limited. Gait examination is not tested. Positive right-sided hemiplegia noted of the upper and lower extremity. Motor strength of the left side is 5/5. DIAGNOSTICS: None from today. The 01/16 diagnostics were all within normal limits except for a white count of 11.2. Microbiology negative. Blood type A positive. IMPRESSION AND PLAN: 1. Acute left basal ganglia and insular and abbott radiata intracerebral bleed secondary to hypertensive urgency and uncontrolled hypertension. 2. Type 2 noninsulin requiring diabetes mellitus. 3. History of headache. 4. Receptive and expressive aphasia. 5. Moderate to severe oropharyngeal dysphagia with risk for aspiration. 6. Systemic inflammatory response syndrome. 7. Deconditioning. 8. History of hypertension. 1. Acute left basal ganglia and internal capsule intracerebral bleed and hemorrhage with right hemiplegia with expressive and receptive aphasia. 2. [id number] oropharyngeal dysphagia with risk for aspiration. 3. Possible feeding dysfunction and swallowing dysfunction. 4. History of hypertension and diabetes mellitus, history of obesity and dyslipidemia. 5. Tachycardia. 6. Episodic hypoxemia. 7. Leukocytosis with granulocytosis and bandemia. 8. Type 2 diabetes mellitus. 9. Hypovitaminosis D. 10. Hypertriglyceridemia. 11. Systemic inflammatory response syndrome with acute stress response secondary to acute left basal ganglia hemorrhage. 12. Systemic inflammatory response syndrome. 13. Right facial droop. 14. Acute left basal ganglia and and abbott radiata intracerebral bleed secondary to hypertensive urgency. 15. Left frontotemporal lobe slowing consistent with acute left basal ganglia bleed. 16. Left insular external capsular basal ganglia, intracerebral bleed with vasogenic edema and mass effect on the right internal capsule and the right lateral ventricle with hemorrhage extending into the left thalamus with surrounding vasogenic edema extending into the left anterior and medial temporal lobe and left cerebral peduncle with mass effect on the left thalamus and mid-brain with . 17. Ethmoid and paranasal sinus mucosal thickening. 18. Interval of evolution of the large early subacute left basal ganglia and insular hemorrhage with lateral component of the hemorrhage demonstrating signal intensity corresponding to acute hemorrhage with moderate vasogenic and surrounding vasogenic edema with regional mass effect with 7 mm midline shift from left to right without evidence of entrapment suggestive of hypertensive urgency. 1. Acute left basal ganglia and internal capsule intracerebral bleed and hemorrhage with right hemiplegia. 2. Expressive and receptive aphasia. 3. Moderate to severe oropharyngeal dysphagia with risk for aspiration. 4. Possible feeding dysfunction and swallowing dysfunction. 5. Hypertension. 6. Tachycardia. 7. Tachypnea. 8. Episodic hypoxemia. 9. History of sleep apnea. 10. Leukocytosis with granulocytosis and bandemia. 11. Hypokalemia. 12. Hypertriglyceridemia. 13. Hypovitaminosis D. 14. Type 2 diabetes mellitus with hemoglobin A1c of 6.7. 15. Systemic inflammatory response syndrome with leukocytosis, granulocytosis, bandemia and tachycardia versus acute stress reaction. 16. Right facial droop. 17. Moderate to severe oropharyngeal dysphagia and receptive and expressive aphasia. 18. History of hypertension, history of dyslipidemia. 19. Acute left basal ganglia and abbott radiata intracerebral bleed, probably secondary to hypertensive urgency. 1. Acute left basal ganglia and internal capsule intracerebral bleed and hemorrhage with right hemiplegia. 2. Expressive aphasia with possible swallowing and feeding dysfunction. 3. Hypertension. 4. Tachycardia. 5. Questionable systemic inflammatory response syndrome with tachycardia, leukocytosis, bandemia. 6. History of hypertension, dyslipidemia, type 2 diabetes. 7. History of sleep apnea. 8. Morbid obesity with elevated body mass index of 26. 9. Sleep apnea. 10. Leukocytosis, granulocytosis and bandemia. 11. Type 2 diabetes mellitus with hemoglobin A1c of 6.7. 12. Hypovitaminosis D. 13. History of hypothyroidism. 14. Hypovitaminosis D. 15. Left basal ganglia internal capsule hemorrhage with greater degree and increasing edema and mass effect on the left hemisphere related to the acute parenchymal hemorrhage. 16. Ventricular asymmetry related to edema in the left cerebral hemisphere. 17. Left frontotemporal slowing without epileptiform activity. 18. Questionable systemic inflammatory response syndrome. 19. Hypokalemia. 20. Expressive aphasia and right-sided facial droop. 21. Hypovitaminosis D. 22. Hypertriglyceridemia. 23. Left ventricular ejection fraction of 53%. 24. Grade I abnormal relaxation pattern. 25. Gait dysfunction secondary to right hemiplegia. 26. Acute left basal ganglia and abbott radiata intracerebral bleed and hemorrhage secondary to hypertensive urgency. 27. History of sleep apnea. 18. mild receptive and expressive aphasia with moderate to severe oropharyngeal dysphagia. 1. Acute left basal ganglia bleed and hemorrhage without any midline shift or basilar herniation at present. 2. Hypertension. 3. Tachycardia. 4. Hypokalemia. 5. Type 2 non-insulin requiring diabetes mellitus. 6. Hypertriglyceridemia. 7. Expressive aphasia with right-sided facial droop and right hemiparesis and hemiplegia. 8. Gait dysfunction. 9. History of sleep apnea. 10. History of hypertension, diabetes mellitus and hypercholesterolemia. 11. Sinus tachycardia. 12. Hypokalemia. 13. Hypertension. 14. Hypertriglyceridemia. 15. Granulocytosis. 16. Left axis deviation. 17. Sinus tachycardia. 18. Acute left basal ganglia hemorrhage and bleeding 3.2 x 2.2 cm involving basal ganglia and left external capsule. 19. Chronic paranasal sinusitis. 20. Right hemiparesis and hemiplegia. 21. Expressive aphasia. 22. History of sleep apnea. 1. Acute left basal ganglia bleed and hemorrhage without any midline shift or basilar herniation. 2. History of hypertension, diabetes mellitus, dyslipidemia. 3. Tachycardia. 4. Hypertension. 5. Hypokalemia. 6. Hyperglycemia. 7. Hypertriglyceridemia. 8. A-positive blood type. 9. Questionable cardiomegaly. 10. Sudden onset of slurred speech and right-sided facial droop and right- sided weakness, and history of headache for the last few days. 11. Hypokalemia. 12. Sinus tachycardia. 13. Left axis deviation. 1. Moderate to severe oropharyngeal dysphagia with risk of aspiration. 2. Receptive and expressive aphasia. CURRENT MEDICATIONS: 1. DuoNeb nebulizer every 6 hours. 2. Humalog medium dose sliding scale coverage before meals and at bedtime. 3. Keppra 500 mg IV q. 12. 4. Lopressor 12.5 twice a day. 5. Protonix 40 mg twice a day. 6. IV fluid 0.9 normal saline at 60 mL an hour. 7. Labetalol 10 mg IV q. 2 hours p.r.n. 8. Tylenol rectal suppositories 650 q. 6 p.r.n. 9. Zofran 4 mg IV q. 6 hours p.r.n. The patient is on CPAP. The patient has been ordered out of bed, seizure precautions, MARQUES stockings, SCDs. Neuro checks, occupational and physical therapy ordered. The patient was seen by infectious disease, neurologist. At present, patient is awaiting discharge to acute rehabilitation. The patient is off IV antibiotics. The patient has been seen by neurology. Their recommendation is noted. Continue physical therapy, occupational therapy, speech therapy. The patient's Keppra can be changed to 500 p.o. twice a day once the patient is able to take p.o. Neurology recommends to avoid all antiplatelet anticoagulation for at least 4 weeks. Start aspirin 81 daily. DICTATED AND ELECTRONICALLY SIGNED NOT READ. Milton Rodas MD cc: [id number] TT: 01/17/2017 15:35:39 Confirmation # [id number] Dictation # [id number] donte JORDAN
[2017-01-17] MEDS: Sodium Chloride 0.9% 1,000 ML IV SCH (18:15)
[2017-01-18] MEDS: Albuterol-Ipratrop 3 mg / 0.5 (3 ml) UD IH SCH ×5 (01:27→20:30)
[2017-01-18] MEDS: Insulin Lispro (humaLOG) MEDIUM Coverage SC SCH ×4 (08:02→22:00)
--- NOTE | 2017-01-18 09:38 | PN ---
DATE: 01/18/2017 The patient remains in bed. Swallowing is an issue. PHYSICAL EXAMINATION: VITAL SIGNS: Blood pressure 141/85, heart rate is in the 80s. NECK: Negative JVD. LUNGS: Without rales. HEART: Reveals S1, S2. EXTREMITIES: Without edema. Right-sided weakness is still apparent. LABORATORY DATA: Hemoglobin is 16.1, white count is 11.2. Glucose is 109. IMPRESSION: 1. Status post cerebrovascular accident. 2. Intracerebral bleed. 3. Hypertension. 4. Aspiration issues. PLAN: Given these findings, will continue on his Lopressor. His blood pressure is at a reasonable l evel. The patient will need extensive physical therapy. Dwayne Kendrick MD cc: [id number] TT: 01/18/2017 09:37:52 Confirmation # [id number] Dictation # [id number] la
[2017-01-18] MEDS: levETIRAcetam 500mg IVPB 100 ML IVPB SCH (10:22)
[2017-01-18] MEDS: Sodium Chloride 0.9% 1,000 ML IV SCH (10:44)
[2017-01-18] MEDS: Pantoprazole 40 mg EC Tab PO SCH (12:07)
--- NOTE | 2017-01-18 12:24 | PN ---
DATE: 01/18/2017 The patient is seen lying in room 277, bed 2. The patient's brothers are at bedside. The patient is comfortable. The patient still has expressive and receptive aphasia, but patient is awake, alert, responsive, does not appear to be in any distress. The patient is lying in the bed. The patient is comfortable. PHYSICAL EXAMINATION: VITAL SIGNS: Telemetry monitoring shows sinus rhythm. T-max is 98.4, heart rate 88-94-97, blood pressure 141/85, 107/75, 136/74, respiration 20, O2 sat 97% . INTAKE AND OUTPUT: Output is 775. HEAD: Normocephalic, atraumatic. HEENT: Shows positive facial asymmetry. Tongue deviation to the right. NECK: No neck rigidity. Questionable soft carotid bruit. CHEST: Kyphosis. LUNGS: Shows occasional rhonchi upper lung stewart. CARDIOVASCULAR: S1, S2, regular rhythm. ABDOMEN: Soft, positive bowel sounds. GENITALIA: Male. RECTAL: Deferred. EXTREMITIES: Shows no pitting edema, no calf tenderness, no Homans sign. MUSCULOSKELETAL: Shows a body mass index of 28. NEUROLOGIC: Cranial nerves II-XII limited. Positive right upper and lower extremity hemiplegia. The patient has right hemiplegia. PSYCHIATRIC: Negative for anxiety, depression. Negative for suicidal or homicidal ideation, negative for auditory or visual hallucination. GAIT: Not tested. DIAGNOSTICS: None from today. Fingerstick blood sugar is 147, 109, 131, 121, 123. IMPRESSION AND PLAN: 1. Acute left basal ganglia intracerebral hemorrhage involving basal ganglia, left external capsule, abbott radiata and insular area. 2. Right hemiplegia. 3. Expressive, receptive aphasia. 4. Moderate to severe oropharyngeal dysphagia. 5. Chronic ethmoid and maxillary sinusitis. 6. Gait dysfunction. 7. Systemic inflammatory response syndrome. 8. Left basal ganglia, insular and external capsule intracerebral bleed and hemorrhage with surrounding vasogenic edema and mild mass effect on the right internal capsule and right lateral ventricle with extension of the hemorrhage into the left thalamus with surrounding vasogenic edema extending into the left anterior and medial temporal lobe and the left cerebral peduncle with mass effect on the left thalamus and midbrain 9. Chronic paranasal sinusitis. 10. Gait dysfunction. 11. Leukocytosis with granulocytosis. 12. Left basal ganglia internal capsule hemorrhage and bleed, probably secondary to hypertensive urgency. 13. Mildly dilated right ventricle. 14. Left ventricular ejection fraction of 53%. 15. Left frontotemporal slowing and abnormal EEG. 16. Right hemiplegia with severe gait dysfunction. 17. History of hypertension. 18. Tachycardia. 19. Hypertension. 20. Leukocytosis with granulocytosis. 21. Deconditioning. 22. Hypovitaminosis D. 23. Deconditioning. 1. Acute left basal ganglia and insular and abbott radiata intracerebral bleed secondary to hypertensive urgency and uncontrolled hypertension. 2. Type 2 noninsulin requiring diabetes mellitus. 3. History of headache. 4. Receptive and expressive aphasia. 5. Moderate to severe oropharyngeal dysphagia with risk for aspiration. 6. Systemic inflammatory response syndrome. 7. Deconditioning. 8. History of hypertension. 1. Acute left basal ganglia and internal capsule intracerebral bleed and hemorrhage with right hemiplegia with expressive and receptive aphasia. 2. Bykekivr-[id number] oropharyngeal dysphagia with risk for aspiration. 3. Possible feeding dysfunction and swallowing dysfunction. 4. History of hypertension and diabetes mellitus, history of obesity and dyslipidemia. 5. Tachycardia. 6. Episodic hypoxemia. 7. Leukocytosis with granulocytosis and bandemia. 8. Type 2 diabetes mellitus. 9. Hypovitaminosis D. 10. Hypertriglyceridemia. 11. Systemic inflammatory response syndrome with acute stress response secondary to acute left basal ganglia hemorrhage. 12. Systemic inflammatory response syndrome. 13. Right facial droop. 14. Acute left basal ganglia and and abbott radiata intracerebral bleed secondary to hypertensive urgency. 15. Left frontotemporal lobe slowing consistent with acute left basal ganglia bleed. 16. Left insular external capsular basal ganglia, intracerebral bleed with vasogenic edema and mass effect on the right internal capsule and the right lateral ventricle with hemorrhage extending into the left thalamus with surrounding vasogenic edema extending into the left anterior and medial temporal lobe and left cerebral peduncle with mass effect on the left thalamus and mid-brain with . 17. Ethmoid and paranasal sinus mucosal thickening. 18. Interval of evolution of the large early subacute left basal ganglia and insular hemorrhage with lateral component of the hemorrhage demonstrating signal intensity corresponding to acute hemorrhage with moderate vasogenic and surrounding vasogenic edema with regional mass effect with 7 mm midline shift from left to right without evidence of entrapment suggestive of hypertensive urgency. 1. Acute left basal ganglia and internal capsule intracerebral bleed and hemorrhage with right hemiplegia. 2. Expressive and receptive aphasia. 3. Moderate to severe oropharyngeal dysphagia with risk for aspiration. 4. Possible feeding dysfunction and swallowing dysfunction. 5. Hypertension. 6. Tachycardia. 7. Tachypnea. 8. Episodic hypoxemia. 9. History of sleep apnea. 10. Leukocytosis with granulocytosis and bandemia. 11. Hypokalemia. 12. Hypertriglyceridemia. 13. Hypovitaminosis D. 14. Type 2 diabetes mellitus with hemoglobin A1c of 6.7. 15. Systemic inflammatory response syndrome with leukocytosis, granulocytosis, bandemia and tachycardia versus acute stress reaction. 16. Right facial droop. 17. Moderate to severe oropharyngeal dysphagia and receptive and expressive aphasia. 18. History of hypertension, history of dyslipidemia. 19. Acute left basal ganglia and abbott radiata intracerebral bleed, probably secondary to hypertensive urgency. 1. Acute left basal ganglia and internal capsule intracerebral bleed and hemorrhage with right hemiplegia. 2. Expressive aphasia with possible swallowing and feeding dysfunction. 3. Hypertension. 4. Tachycardia. 5. Questionable systemic inflammatory response syndrome with tachycardia, leukocytosis, bandemia. 6. History of hypertension, dyslipidemia, type 2 diabetes. 7. History of sleep apnea. 8. Morbid obesity with elevated body mass index of 26. 9. Sleep apnea. 10. Leukocytosis, granulocytosis and bandemia. 11. Type 2 diabetes mellitus with hemoglobin A1c of 6.7. 12. Hypovitaminosis D. 13. History of hypothyroidism. 14. Hypovitaminosis D. 15. Left basal ganglia internal capsule hemorrhage with greater degree and increasing edema and mass effect on the left hemisphere related to the acute parenchymal hemorrhage. 16. Ventricular asymmetry related to edema in the left cerebral hemisphere. 17. Left frontotemporal slowing without epileptiform activity. 18. Questionable systemic inflammatory response syndrome. 19. Hypokalemia. 20. Expressive aphasia and right-sided facial droop. 21. Hypovitaminosis D. 22. Hypertriglyceridemia. 23. Left ventricular ejection fraction of 53%. 24. Grade I abnormal relaxation pattern. 25. Gait dysfunction secondary to right hemiplegia. 26. Acute left basal ganglia and abbott radiata intracerebral bleed and hemorrhage secondary to hypertensive urgency. 27. History of sleep apnea. 18. mild receptive and expressive aphasia with moderate to severe oropharyngeal dysphagia. 1. Acute left basal ganglia bleed and hemorrhage without any midline shift or basilar herniation at present. 2. Hypertension. 3. Tachycardia. 4. Hypokalemia. 5. Type 2 non-insulin requiring diabetes mellitus. 6. Hypertriglyceridemia. 7. Expressive aphasia with right-sided facial droop and right hemiparesis and hemiplegia. 8. Gait dysfunction. 9. History of sleep apnea. 10. History of hypertension, diabetes mellitus and hypercholesterolemia. 11. Sinus tachycardia. 12. Hypokalemia. 13. Hypertension. 14. Hypertriglyceridemia. 15. Granulocytosis. 16. Left axis deviation. 17. Sinus tachycardia. 18. Acute left basal ganglia hemorrhage and bleeding 3.2 x 2.2 cm involving basal ganglia and left external capsule. 19. Chronic paranasal sinusitis. 20. Right hemiparesis and hemiplegia. 21. Expressive aphasia. 22. History of sleep apnea. 1. Acute left basal ganglia bleed and hemorrhage without any midline shift or basilar herniation. 2. History of hypertension, diabetes mellitus, dyslipidemia. 3. Tachycardia. 4. Hypertension. 5. Hypokalemia. 6. Hyperglycemia. 7. Hypertriglyceridemia. 8. A-positive blood type. 9. Questionable cardiomegaly. 10. Sudden onset of slurred speech and right-sided facial droop and right- sided weakness, and history of headache for the last few days. 11. Hypokalemia. 12. Sinus tachycardia. 13. Left axis deviation. 1. Moderate to severe oropharyngeal dysphagia with risk of aspiration. 2. Receptive and expressive aphasia. The patient seen by school social worker. The patient's family has requested to go to [facility]. The patient seen by physical therapist. Their recommendation from 01/17 noted of rehabilitation. CURRENT MEDICATIONS: 1. DuoNeb nebulizer every 6 hours. 2. Humalog medium dose sliding scale coverage before meals and at bedtime. 3. Keppra is going to be changed to p.o. 4. The patient is on Lopressor 12.5 twice a day. 5. Keppra 500 twice a day. 6. Protonix 40 will be changed to p.o. 7. The patient's IV fluid will be stopped. 8. The patient is on Trandate or labetalol 10 mg IV q. 2 hours p.r.n. 9. Tylenol suppository q. 6 p.r.n. 10. Zofran 4 mg IV q. 6 p.r.n. The patient is on CPAP at night. CPAP pressure 12, FiO2 28%. The patient has been ordered out of bed, MARQUES stockings, SCDs, occupational therapy, physical therapy, speech therapy, swallowing evaluation all ordered. The patient's condition, diagnosis, overall guarded to poor prognosis discussed with the patient's at length and all questions and concerns answered. Dictated and electronically signed, not read. Milton Rodas MD cc: [id number] TT: 01/18/2017 12:23:35 Confirmation # [id number] Dictation # [id number] MTDD
[2017-01-18] MEDS: levETIRAcetam 500 mg/5ml UD cups PO SCH (17:41)
--- NOTE | 2017-01-18 21:47 | PN ---
DATE: 01/18/2017 The patient is in bed in no acute distress, nontoxic. PHYSICAL EXAMINATION: VITAL SIGNS: Temperature is 98, blood pressure is 120/80, respiratory rate of 16. HEENT: Unremarkable. NECK: Supple. LUNGS: Have decreased breath sounds. HEART: Normal S1, S2. ABDOMEN: Soft. LABORATORY DATA: Reveals a white count of 11,200. Chemistries reveal the BUN of 17, creatinine of 0 .2. Review of the orders reveals the patient to be on no antibiotics. ASSESSMENT AND PLAN: This is a 61-year-old with systemic inflammatory response syndrome, ____ acute left basal ganglia hemorrhage, no evidence of ____ ,negative blood cultures, normal procalcitonin, ne gative chest x-ray. White count with downward trend, off of antibiotics at this point, afebrile. Ken Montes MD cc: [id number] TT: 01/18/2017 21:47:02 Confirmation # [id number] Dictation # [id number] jn
[2017-01-19] MEDS: Albuterol-Ipratrop 3 mg / 0.5 (3 ml) UD IH SCH (01:20)
[2017-01-19] MEDS: Pantoprazole 40 mg EC Tab PO SCH (08:00)
[2017-01-19] MEDS: Insulin Lispro (humaLOG) MEDIUM Coverage SC SCH ×3 (08:00→16:45)
[2017-01-19] MEDS: levETIRAcetam 500 mg/5ml UD cups PO SCH ×2 (09:25→17:30)
--- NOTE | 2017-01-19 11:08 | DS ---
FINAL PROGRESS NOTE AND DISCHARGE SUMMARY The patient is seen in room 363, bed 1. The patient is lying in the bed. The patient's brother is at bedside. The patient is awake, responsive, alert. The patient's overnight nurse's notes were reviewed. The patient was transferred from telemetry to the [facility]. The patient slept well without any distress. PHYSICAL EXAMINATION: VITAL SIGNS: T-max 98.5, heart rate 69, blood pressure 128/72, respirations 22 , O2 sat 96%. Output 1275. HEAD: Normocephalic, atraumatic. HEENT: Shows pinkish conjunctivae, anicteric sclerae. No oropharyngeal lesion. NECK: No neck rigidity. CHEST: Symmetrical. LUNGS: Show no rales, crackles, or wheezing. CARDIOVASCULAR: Shows S1, S2, regular rhythm. ABDOMEN: Soft, positive bowel sounds. GENITALIA: Male. RECTAL: Deferred. EXTREMITIES: Shows no pitting edema, no calf tenderness, no Homans' sign. Positive right-sided hemiplegia noted. The patient is able to move the right foot today to painful stimuli. MUSCULOSKELETAL: Shows a body mass index of 27.6. NEUROLOGIC: Cranial nerves II-XII limited. GAIT: Not tested. PSYCHIATRIC: Negative for anxiety. Negative for depression. Negative for auditory or visual hallucination. Negative for suicidal or homicidal ideation. Fingerstick blood sugar is 112, 147, 109, 131, 121. DIAGNOSTICS: None from today. The patient's labs are ordered. FINAL IMPRESSION AND PLAN AND DISCHARGE DIAGNOSES: 1. Acute left basal ganglia intracerebral hemorrhage involving the left basal ganglia, left external capsule, abbott radiata and insular area. 2. Right hemiplegia. 3. Expressive receptive aphasia. 4. Moderate to severe oropharyngeal dysphagia. 5. Severe gait dysfunction. 6. History of diabetes mellitus. 7. History of hypertension. 8. Hypertension. 9. Leukocytosis with granulocytosis, probably Decadron-induced. 10. Bandemia. 11. Hypokalemia. 12. Type 2 diabetes mellitus with hemoglobin A1c of 6.7. 13. Hypovitaminosis D. 14. Hypertriglyceridemia. 15. Left frontotemporal slowing without epileptiform activity on the EEG. 16. Severe deconditioning and gait dysfunction with right hemiplegia secondary to left basal ganglia intracerebral bleed and hemorrhage. 17. Questionable and possible functional quadriplegia with right hemiplegia. 1. Acute left basal ganglia intracerebral hemorrhage involving basal ganglia, left external capsule, abbott radiata and insular area. 2. Right hemiplegia. 3. Expressive, receptive aphasia. 4. Moderate to severe oropharyngeal dysphagia. 5. Chronic ethmoid and maxillary sinusitis. 6. Gait dysfunction. 7. Systemic inflammatory response syndrome. 8. Left basal ganglia, insular and external capsule intracerebral bleed and hemorrhage with surrounding vasogenic edema and mild mass effect on the right internal capsule and right lateral ventricle with extension of the hemorrhage into the left thalamus with surrounding vasogenic edema extending into the left anterior and medial temporal lobe and the left cerebral peduncle with mass effect on the left thalamus and midbrain 9. Chronic paranasal sinusitis. 10. Gait dysfunction. 11. Leukocytosis with granulocytosis. 12. Left basal ganglia internal capsule hemorrhage and bleed, probably secondary to hypertensive urgency. 13. Mildly dilated right ventricle. 14. Left ventricular ejection fraction of 53%. 15. Left frontotemporal slowing and abnormal EEG. 16. Right hemiplegia with severe gait dysfunction. 17. History of hypertension. 18. Tachycardia. 19. Hypertension. 20. Leukocytosis with granulocytosis. 21. Deconditioning. 22. Hypovitaminosis D. 23. Deconditioning. 1. Acute left basal ganglia and insular and abbott radiata intracerebral bleed secondary to hypertensive urgency and uncontrolled hypertension. 2. Type 2 noninsulin requiring diabetes mellitus. 3. History of headache. 4. Receptive and expressive aphasia. 5. Moderate to severe oropharyngeal dysphagia with risk for aspiration. 6. Systemic inflammatory response syndrome. 7. Deconditioning. 8. History of hypertension. 1. Acute left basal ganglia and internal capsule intracerebral bleed and hemorrhage with right hemiplegia with expressive and receptive aphasia. 2. [id number] oropharyngeal dysphagia with risk for aspiration. 3. Possible feeding dysfunction and swallowing dysfunction. 4. History of hypertension and diabetes mellitus, history of obesity and dyslipidemia. 5. Tachycardia. 6. Episodic hypoxemia. 7. Leukocytosis with granulocytosis and bandemia. 8. Type 2 diabetes mellitus. 9. Hypovitaminosis D. 10. Hypertriglyceridemia. 11. Systemic inflammatory response syndrome with acute stress response secondary to acute left basal ganglia hemorrhage. 12. Systemic inflammatory response syndrome. 13. Right facial droop. 14. Acute left basal ganglia and and abbott radiata intracerebral bleed secondary to hypertensive urgency. 15. Left frontotemporal lobe slowing consistent with acute left basal ganglia bleed. 16. Left insular external capsular basal ganglia, intracerebral bleed with vasogenic edema and mass effect on the right internal capsule and the right lateral ventricle with hemorrhage extending into the left thalamus with surrounding vasogenic edema extending into the left anterior and medial temporal lobe and left cerebral peduncle with mass effect on the left thalamus and mid-brain with . 17. Ethmoid and paranasal sinus mucosal thickening. 18. Interval of evolution of the large early subacute left basal ganglia and insular hemorrhage with lateral component of the hemorrhage demonstrating signal intensity corresponding to acute hemorrhage with moderate vasogenic and surrounding vasogenic edema with regional mass effect with 7 mm midline shift from left to right without evidence of entrapment suggestive of hypertensive urgency. 1. Acute left basal ganglia and internal capsule intracerebral bleed and hemorrhage with right hemiplegia. 2. Expressive and receptive aphasia. 3. Moderate to severe oropharyngeal dysphagia with risk for aspiration. 4. Possible feeding dysfunction and swallowing dysfunction. 5. Hypertension. 6. Tachycardia. 7. Tachypnea. 8. Episodic hypoxemia. 9. History of sleep apnea. 10. Leukocytosis with granulocytosis and bandemia. 11. Hypokalemia. 12. Hypertriglyceridemia. 13. Hypovitaminosis D. 14. Type 2 diabetes mellitus with hemoglobin A1c of 6.7. 15. Systemic inflammatory response syndrome with leukocytosis, granulocytosis, bandemia and tachycardia versus acute stress reaction. 16. Right facial droop. 17. Moderate to severe oropharyngeal dysphagia and receptive and expressive aphasia. 18. History of hypertension, history of dyslipidemia. 19. Acute left basal ganglia and abbott radiata intracerebral bleed, probably secondary to hypertensive urgency. 1. Acute left basal ganglia and internal capsule intracerebral bleed and hemorrhage with right hemiplegia. 2. Expressive aphasia with possible swallowing and feeding dysfunction. 3. Hypertension. 4. Tachycardia. 5. Questionable systemic inflammatory response syndrome with tachycardia, leukocytosis, bandemia. 6. History of hypertension, dyslipidemia, type 2 diabetes. 7. History of sleep apnea. 8. Morbid obesity with elevated body mass index of 26. 9. Sleep apnea. 10. Leukocytosis, granulocytosis and bandemia. 11. Type 2 diabetes mellitus with hemoglobin A1c of 6.7. 12. Hypovitaminosis D. 13. History of hypothyroidism. 14. Hypovitaminosis D. 15. Left basal ganglia internal capsule hemorrhage with greater degree and increasing edema and mass effect on the left hemisphere related to the acute parenchymal hemorrhage. 16. Ventricular asymmetry related to edema in the left cerebral hemisphere. 17. Left frontotemporal slowing without epileptiform activity. 18. Questionable systemic inflammatory response syndrome. 19. Hypokalemia. 20. Expressive aphasia and right-sided facial droop. 21. Hypovitaminosis D. 22. Hypertriglyceridemia. 23. Left ventricular ejection fraction of 53%. 24. Grade I abnormal relaxation pattern. 25. Gait dysfunction secondary to right hemiplegia. 26. Acute left basal ganglia and abbott radiata intracerebral bleed and hemorrhage secondary to hypertensive urgency. 27. History of sleep apnea. 18. mild receptive and expressive aphasia with moderate to severe oropharyngeal dysphagia. 1. Acute left basal ganglia bleed and hemorrhage without any midline shift or basilar herniation at present. 2. Hypertension. 3. Tachycardia. 4. Hypokalemia. 5. Type 2 non-insulin requiring diabetes mellitus. 6. Hypertriglyceridemia. 7. Expressive aphasia with right-sided facial droop and right hemiparesis and hemiplegia. 8. Gait dysfunction. 9. History of sleep apnea. 10. History of hypertension, diabetes mellitus and hypercholesterolemia. 11. Sinus tachycardia. 12. Hypokalemia. 13. Hypertension. 14. Hypertriglyceridemia. 15. Granulocytosis. 16. Left axis deviation. 17. Sinus tachycardia. 18. Acute left basal ganglia hemorrhage and bleeding 3.2 x 2.2 cm involving basal ganglia and left external capsule. 19. Chronic paranasal sinusitis. 20. Right hemiparesis and hemiplegia. 21. Expressive aphasia. 22. History of sleep apnea. 1. Acute left basal ganglia bleed and hemorrhage without any midline shift or basilar herniation. 2. History of hypertension, diabetes mellitus, dyslipidemia. 3. Tachycardia. 4. Hypertension. 5. Hypokalemia. 6. Hyperglycemia. 7. Hypertriglyceridemia. 8. A-positive blood type. 9. Questionable cardiomegaly. 10. Sudden onset of slurred speech and right-sided facial droop and right- sided weakness, and history of headache for the last few days. 11. Hypokalemia. 12. Sinus tachycardia. 13. Left axis deviation. 1. Moderate to severe oropharyngeal dysphagia with risk of aspiration. 2. Receptive and expressive aphasia. The patient is being discharged to acute rehab per the patient's family's choice. The patient's family is looking into discharge to [facility] for acute rehab. The patient has been ordered repeat labs. CURRENT CONSULTATIONS: Cardiology, infectious disease, neurology, and neurosurgery. CURRENT MEDICATIONS: 1. Humalog medium-dose sliding scale coverage a.c. and at bedtime. 2. Keppra 500 mg twice a day. 3. Lopressor 12.5 mg twice a day. 4. Protonix 40 mg daily. 5. Trandate (labetalol) 10 mg IV q. 2 hours p.r.n. 6. Tylenol 650 q. 6 hours p.r.n. 7. Vitamin D3, 2000 units daily. 8. Zofran 4 mg IV q. 6 hours p.r.n. The patient is on CPAP at night. Heart-healthy diet. Head of the bed at 30 degrees. Neuro checks. Out of bed to chair. SCDs, MARQUES stockings. At present , the patient has been ordered physical therapy, occupational therapy, speech therapy, swallowing evaluation. At present, the patient has been medically, neurologically, neurosurgically, cardiology ____, and infectious disease has been cleared. We are waiting for the patient's acceptance into acute rehab. The patient has been cleared for discharge. The patient's discharge medications are as per MAR of today. The patient's discharge medications have been as per the ambulatory orders, and also the patient is advised to resume home medications. During this hospitalization, the patient and the patient's and the family have been updated about the patient's condition, diagnosis. Overall guarded prognosis has been discussed and explained to the patient and the patient's family at length. All questions and concerns answered. Time spent in the entire discharge process - more than 45 minutes. The patient is going to be discharged to acute rehab of the patient's family's choice when accepted. Dictated and electronically signed, not read. Milton Rodas MD cc: [id number] TT: 01/19/2017 11:08:01 jn [id number]
--- NOTE | 2017-01-19 11:29 | PN ---
DATE: 01/19/2017 The patient is in bed without complaints. PHYSICAL EXAMINATION: VITAL SIGNS: Blood pressure is 128/72, the heart rate is in the 70s. NECK: Negative JVD. LUNGS: Without rales. HEART: Revealed S1, S2. EXTREMITIES: Without edema. LABORATORIES: Not drawn today. IMPRESSION: 1. Status post intracerebral bleed. 2. Status post cerebrovascular accident. 3. Hypertension. 4. Diabetes mellitus. Given these findings, the patient is hemodynamically stable. He will continue on his low dose beta b lockers. The patient is scheduled to go to [facility] for rehab today. Dwayne Kendrick MD cc: [id number] TT: 01/19/2017 11:27:55 Confirmation # [id number] Dictation # [id number] mn
--- NOTE | 2017-01-19 13:48 | PN ---
DATE: 01/19/2017 The patient is in bed in no acute distress, nontoxic. PHYSICAL EXAMINATION: VITAL SIGNS: Temperature is 98, blood pressure is 120/70, respiratory rate of 16. HEENT: Unremarkable. NECK: Supple. LUNGS: Decreased breath sounds. HEART: Normal S1, S2. ABDOMEN: Soft, nontender. LABORATORY EXAMINATION: Reveals a white count of 11,000; hemoglobin of 16. Chemistries are noted. Microbiology reveals the patient's blood cultures are negative. Nasal MRSA screen is not detected. Review of the orders reveals the patient to be off of antibiotics. ASSESSMENT AND PLAN: A 61-year-old male seen earlier this morning in [facility], bed 1, with systemic infla mmatory response syndrome with acute left basal ganglia hemorrhage. No evidence of infection. Negat lulú blood cultures. Normal procalcitonin. Negative chest x-ray. Currently off of antibiotics, afeb rile with white count that is down to 11,000. The patient is at risk for developing nosocomial infec tions. Ken Montes MD cc: [id number] TT: 01/19/2017 13:47:20 Confirmation # [id number] Dictation # [id number]
[2017-01-19 17:00] VITALS: BP 121/75; PULSE 90; RESP 21; TEMP 97.9; O2SAT 95
[2017-01-19] MEDS ORDERED: Pneumococcal 23-Valent Vaccine IM ONE (18:03)
--- NOTE | 2017-02-09 14:01 | PN ---
DATE: 01/15/2017 The patient is seen in room ____, bed 2. The patient is lying in the bed. The patient's family is at bedside. PHYSICAL EXAMINATION: VITAL SIGNS: The patient is afebrile. Heart rate in high 90s to low 100s. Respiration is 19-20. Blood pressure is 105/80, 123/76, 130/79. O2 sat is 97- 96%. INTAKE AND OUTPUT: Yesterday's intake 750/output 550, and 1140 and output 200. Today's intake 720, output 450. HEENT: Head is normocephalic, atraumatic. Positive right-sided facial asymmetry, positive nasolabial fold asymmetry. Positive tongue deviation. NECK: No neck rigidity. CHEST: Shows kyphosis. LUNGS: Positive upper lung field rhonchi. CARDIOVASCULAR: S1, S2, regular rhythm. ABDOMEN: Soft, protuberant, positive bowel sounds. GENITALIA: Male. RECTAL: Deferred. EXTREMITIES: Shows no swelling, no edema, no calf tenderness, no Homans signs. Positive hemiplegia and weakness of the right upper and lower extremity. Left upper and lower extremity strength is 5/5. MUSCULOSKELETAL: Body mass index of 27. NEUROLOGICAL: Cranial nerves II-XII limited. The patient has expressive aphasia. GAIT: The patient is lying in the bed. DIAGNOSTICS: 01/15/2017: WBC 13.6, hemoglobin/hematocrit 16.8/48.2, platelets 280, granulocyte 68%. Sodium 137, potassium 3.6, chloride 100, CO2 of 24, anion gap 17, BUN 18, creatinine 0.8, GFR greater than 60, glucose 116, calcium 8.5, phosphorus 3.2, magnesium 2.2. LFTs are normal. Microbiology: Final cultures are negative. Blood type A positive. The patient's MRI of the brain was reviewed from 01/14/2017. EEG was reviewed from 01/12/2017. IMPRESSION: 1. Large subacute left basal ganglia and insular intracerebral bleed or hematoma with lateral component of the hematoma demonstrating signal intensity corresponding to acute hemorrhage with moderate surrounding vasogenic edema and local regional mass effect with 7 mm midline shift from left to right. 2. Most likely hypertensive intracerebral and basal ganglia and insular hemorrhage. 3. Right-sided hemiplegia and hemiparesis. 4. Left basal ganglia, left insula, left external capsule intracerebral hemorrhage and hematoma with surrounding vasogenic edema, with extension of the hematoma into the left thalamus and left anterior and medial temporal lobes and left cerebral peduncle, with mass effect on the left thalamus and midbrain. 5. Ethmoid and paranasal sinus mucosal thickening. 6. Tachycardia. 7. Hypertension. 8. Hypokalemia. 9. History of diabetes mellitus with hemoglobin A1c of 6.7 with hyperglycemia. 10. Hypokalemia. 11. Leukocytosis with granulocytosis and bandemia. 12. A positive blood type. 13. Severe gait dysfunction and deconditioning. 14. Left ventricular ejection fraction of 53%. 15. Left frontotemporal slowing on the electroencephalogram. 16. History of sleep apnea. 17. Tachypnea. 1. Acute left basal ganglia intracerebral hemorrhage involving the left basal ganglia, left external capsule, abbott radiata and insular area. 2. Right hemiplegia. 3. Expressive receptive aphasia. 4. Moderate to severe oropharyngeal dysphagia. 5. Severe gait dysfunction. 6. History of diabetes mellitus. 7. History of hypertension. 8. Hypertension. 9. Leukocytosis with granulocytosis, probably Decadron-induced. 10. Bandemia. 11. Hypokalemia. 12. Type 2 diabetes mellitus with hemoglobin A1c of 6.7. 13. Hypovitaminosis D. 14. Hypertriglyceridemia. 15. Left frontotemporal slowing without epileptiform activity on the EEG. 16. Severe deconditioning and gait dysfunction with right hemiplegia secondary to left basal ganglia intracerebral bleed and hemorrhage. 17. Questionable and possible functional quadriplegia with right hemiplegia. 1. Acute left basal ganglia intracerebral hemorrhage involving basal ganglia, left external capsule, abbott radiata and insular area. 2. Right hemiplegia. 3. Expressive, receptive aphasia. 4. Moderate to severe oropharyngeal dysphagia. 5. Chronic ethmoid and maxillary sinusitis. 6. Gait dysfunction. 7. Systemic inflammatory response syndrome. 8. Left basal ganglia, insular and external capsule intracerebral bleed and hemorrhage with surrounding vasogenic edema and mild mass effect on the right internal capsule and right lateral ventricle with extension of the hemorrhage into the left thalamus with surrounding vasogenic edema extending into the left anterior and medial temporal lobe and the left cerebral peduncle with mass effect on the left thalamus and midbrain 9. Chronic paranasal sinusitis. 10. Gait dysfunction. 11. Leukocytosis with granulocytosis. 12. Left basal ganglia internal capsule hemorrhage and bleed, probably secondary to hypertensive urgency. 13. Mildly dilated right ventricle. 14. Left ventricular ejection fraction of 53%. 15. Left frontotemporal slowing and abnormal EEG. 16. Right hemiplegia with severe gait dysfunction. 17. History of hypertension. 18. Tachycardia. 19. Hypertension. 20. Leukocytosis with granulocytosis. 21. Deconditioning. 22. Hypovitaminosis D. 23. Deconditioning. 1. Acute left basal ganglia and insular and abbott radiata intracerebral bleed secondary to hypertensive urgency and uncontrolled hypertension. 2. Type 2 noninsulin requiring diabetes mellitus. 3. History of headache. 4. Receptive and expressive aphasia. 5. Moderate to severe oropharyngeal dysphagia with risk for aspiration. 6. Systemic inflammatory response syndrome. 7. Deconditioning. 8. History of hypertension. 1. Acute left basal ganglia and internal capsule intracerebral bleed and hemorrhage with right hemiplegia with expressive and receptive aphasia. 2. [id number] oropharyngeal dysphagia with risk for aspiration. 3. Possible feeding dysfunction and swallowing dysfunction. 4. History of hypertension and diabetes mellitus, history of obesity and dyslipidemia. 5. Tachycardia. 6. Episodic hypoxemia. 7. Leukocytosis with granulocytosis and bandemia. 8. Type 2 diabetes mellitus. 9. Hypovitaminosis D. 10. Hypertriglyceridemia. 11. Systemic inflammatory response syndrome with acute stress response secondary to acute left basal ganglia hemorrhage. 12. Systemic inflammatory response syndrome. 13. Right facial droop. 14. Acute left basal ganglia and and abbott radiata intracerebral bleed secondary to hypertensive urgency. 15. Left frontotemporal lobe slowing consistent with acute left basal ganglia bleed. 16. Left insular external capsular basal ganglia, intracerebral bleed with vasogenic edema and mass effect on the right internal capsule and the right lateral ventricle with hemorrhage extending into the left thalamus with surrounding vasogenic edema extending into the left anterior and medial temporal lobe and left cerebral peduncle with mass effect on the left thalamus and mid-brain with . 17. Ethmoid and paranasal sinus mucosal thickening. 18. Interval of evolution of the large early subacute left basal ganglia and insular hemorrhage with lateral component of the hemorrhage demonstrating signal intensity corresponding to acute hemorrhage with moderate vasogenic and surrounding vasogenic edema with regional mass effect with 7 mm midline shift from left to right without evidence of entrapment suggestive of hypertensive urgency. 1. Acute left basal ganglia and internal capsule intracerebral bleed and hemorrhage with right hemiplegia. 2. Expressive and receptive aphasia. 3. Moderate to severe oropharyngeal dysphagia with risk for aspiration. 4. Possible feeding dysfunction and swallowing dysfunction. 5. Hypertension. 6. Tachycardia. 7. Tachypnea. 8. Episodic hypoxemia. 9. History of sleep apnea. 10. Leukocytosis with granulocytosis and bandemia. 11. Hypokalemia. 12. Hypertriglyceridemia. 13. Hypovitaminosis D. 14. Type 2 diabetes mellitus with hemoglobin A1c of 6.7. 15. Systemic inflammatory response syndrome with leukocytosis, granulocytosis, bandemia and tachycardia versus acute stress reaction. 16. Right facial droop. 17. Moderate to severe oropharyngeal dysphagia and receptive and expressive aphasia. 18. History of hypertension, history of dyslipidemia. 19. Acute left basal ganglia and abbott radiata intracerebral bleed, probably secondary to hypertensive urgency. 1. Acute left basal ganglia and internal capsule intracerebral bleed and hemorrhage with right hemiplegia. 2. Expressive aphasia with possible swallowing and feeding dysfunction. 3. Hypertension. 4. Tachycardia. 5. Questionable systemic inflammatory response syndrome with tachycardia, leukocytosis, bandemia. 6. History of hypertension, dyslipidemia, type 2 diabetes. 7. History of sleep apnea. 8. Morbid obesity with elevated body mass index of 26. 9. Sleep apnea. 10. Leukocytosis, granulocytosis and bandemia. 11. Type 2 diabetes mellitus with hemoglobin A1c of 6.7. 12. Hypovitaminosis D. 13. History of hypothyroidism. 14. Hypovitaminosis D. 15. Left basal ganglia internal capsule hemorrhage with greater degree and increasing edema and mass effect on the left hemisphere related to the acute parenchymal hemorrhage. 16. Ventricular asymmetry related to edema in the left cerebral hemisphere. 17. Left frontotemporal slowing without epileptiform activity. 18. Questionable systemic inflammatory response syndrome. 19. Hypokalemia. 20. Expressive aphasia and right-sided facial droop. 21. Hypovitaminosis D. 22. Hypertriglyceridemia. 23. Left ventricular ejection fraction of 53%. 24. Grade I abnormal relaxation pattern. 25. Gait dysfunction secondary to right hemiplegia. 26. Acute left basal ganglia and abbott radiata intracerebral bleed and hemorrhage secondary to hypertensive urgency. 27. History of sleep apnea. 18. mild receptive and expressive aphasia with moderate to severe oropharyngeal dysphagia. 1. Acute left basal ganglia bleed and hemorrhage without any midline shift or basilar herniation at present. 2. Hypertension. 3. Tachycardia. 4. Hypokalemia. 5. Type 2 non-insulin requiring diabetes mellitus. 6. Hypertriglyceridemia. 7. Expressive aphasia with right-sided facial droop and right hemiparesis and hemiplegia. 8. Gait dysfunction. 9. History of sleep apnea. 10. History of hypertension, diabetes mellitus and hypercholesterolemia. 11. Sinus tachycardia. 12. Hypokalemia. 13. Hypertension. 14. Hypertriglyceridemia. 15. Granulocytosis. 16. Left axis deviation. 17. Sinus tachycardia. 18. Acute left basal ganglia hemorrhage and bleeding 3.2 x 2.2 cm involving basal ganglia and left external capsule. 19. Chronic paranasal sinusitis. 20. Right hemiparesis and hemiplegia. 21. Expressive aphasia. 22. History of sleep apnea. 1. Acute left basal ganglia bleed and hemorrhage without any midline shift or basilar herniation. 2. History of hypertension, diabetes mellitus, dyslipidemia. 3. Tachycardia. 4. Hypertension. 5. Hypokalemia. 6. Hyperglycemia. 7. Hypertriglyceridemia. 8. A-positive blood type. 9. Questionable cardiomegaly. 10. Sudden onset of slurred speech and right-sided facial droop and right- sided weakness, and history of headache for the last few days. 11. Hypokalemia. 12. Sinus tachycardia. 13. Left axis deviation. 1. Moderate to severe oropharyngeal dysphagia with risk of aspiration. 2. Receptive and expressive aphasia. PLAN: At this time, patient is to be continued on physical therapy, occupational therapy, speech therapy, swallowing therapy. The patient will be continued on the medication as per MAR. The patient's case is referred to social media intern for acute rehab referral. The patient will be continued on the medications as per MAR. The patient's guarded prognosis, condition, diagnosis, test results discussed with the patient 's at length and the patient. Dictated and electronically signed; not read. Milton Rodas MD cc: [id number] TT: 01/15/2017 12:17:07 Confirmation # [id number] Dictation # [id number] wi 02/09/2017 12:57:26 [id number]
== END 2017-01-19 18:39 | DRG 64 ==
LOC: ED 20:34 → ERH 21:27 → CCU 22:55 → 2RSO 01-14 21:57 → 3RNO 01-18 19:57
PROVIDERS: ADMIT Internal Medicine; ATTEND Internal Medicine
PROC: 5A09357 Assistance with Respiratory Ventilation, Less than 24 Consecutive Hours, Continuous Positive Airway Pressure (ICD-10-PCS; principal; 2017-01-12)
PROC: 3E0234Z Introduction of Serum, Toxoid and Vaccine into Muscle, Percutaneous Approach (ICD-10-PCS; 2017-01-19)
DX: I61.0 Nontraumatic intracerebral hemorrhage in hemisphere, subcortical (principal); R53.2 Functional quadriplegia; G93.6 Cerebral edema; R65.10 Systemic inflammatory response syndrome (SIRS) of non-infectious origin without acute organ dysfunction; G81.91 Hemiplegia, unspecified affecting right dominant side; R47.01 Aphasia; E11.65 Type 2 diabetes mellitus with hyperglycemia; I11.9 Hypertensive heart disease without heart failure; I16.0 Hypertensive urgency; R13.12 Dysphagia, oropharyngeal phase; R29.810 Facial weakness; E78.1 Pure hyperglyceridemia; E87.6 Hypokalemia; E78.5 Hyperlipidemia, unspecified; J32.0 Chronic maxillary sinusitis; J32.2 Chronic ethmoidal sinusitis; G47.30 Sleep apnea, unspecified; E03.9 Hypothyroidism, unspecified; R09.02 Hypoxemia; E55.9 Vitamin D deficiency, unspecified; R26.89 Other abnormalities of gait and mobility; R29.718 NIHSS score 18; Z88.6 Allergy status to analgesic agent; Z79.4 Long term (current) use of insulin; Z23 Encounter for immunization